=== PATIENT | female | born 1955 | race Caucasian/White ===

== ENCOUNTER 2016-04-03 15:59 | Emergency (ER) | payer OTHER ==
[~2016-04-03] VITALS: Ht 154.9 cm; Wt 58.0 kg
[~2016-04-03 15:59] MED LIST: ALPR0.5T3 PO; ASPI-147 PO; CLON0.1T PO; CLOP75TA PO; DULO1CAP3 PO; FLUT1SPR5 EACH NARE; LINA145C PO; LYRI225C PO; METO50TA11 PO; MODA100T9 PO; NITR0.4S SL; OMEP40CA2 PO; OXYB5TAB10 PO; OXYC-395 PO; PRED5TAB PO; REST0.05 EACH EYE; SIMV20TA PO; SINE25TA PO; SPIR25TA PO; VENL150T PO; ZOLP1SPR PO
[2016-04-03 16:06] VITALS: PULSE 72; RESP 16; TEMP 97.7; O2SAT 95
[2016-04-03] MEDS ORDERED: VITA10002 PO (16:27)
[2016-04-03] MEDS ORDERED: ARIC5TAB PO (16:27)
[2016-04-03] MEDS ORDERED: PLAQ200T PO (16:27)
[2016-04-03] MEDS ORDERED: FLUO20CA4 PO (16:27)
[2016-04-03] MEDS ORDERED: LEVO50TA4 PO (16:27)
--- NOTE | 2016-04-03 16:31 | PD ---
HPI Chief Complaint: Headache Time Seen by Provider: 16:13 Travel History International Travel<30 days: No Contact w/Intl Traveler<30days: No Traveled to known affect area: No History of Present Illness HPI This 60-year-old female presents for evaluation of injuries from a fall. She has a history of Parkinson's and is prone to falling. Today she was walking in her house. She believes she tripped on the strip between 2 rooms. She fell forward and hit her right side of the forehead. She's been having persistent pain. The fall was this morning. She does not have any numbness or tingling. She has had multiple surgeries on her neck and is having neck pain though she says she always has neck pain PFSH Past Medical History Hx Anticoagulant Therapy: Yes (PLAVIX) Arthritis: Yes Asthma: No Depression: Yes Cancer: No Cardiovascular Problems: Yes (htn on meds, ID with stent) High Cholesterol: Yes (MEDICATED STABLE) COPD: Yes Diabetes: No Fibromyalgia: Yes Genitourinary: No Hepatitis: No Hiatal Hernia: Yes (GERD) Hypertension: Yes Immune Disorder: Yes (SYSTEMIC SCLERADERMA) Implanted Vascular Access Dvce: Yes Medical other: Yes (ARTHRITIS, HYERCHOL, SPINAL CORD STIMULATOR, ESOPHAGEAL STRICTURE AND DILIT) Neurologic: No Reproductive: No Respiratory: Yes (copd) Sleep Apnea: Yes Thyroid Disease: No Past Surgical History Abdominal Surgery: Yes (APPENDECTOMY @ AGE 11 Y/O) Body Medical Devices: PLATES AND SCREWS IN NECK, SPINAL CORD STIMULATOR Cardiac Surgery: Yes (STENT PLACEMENT 2009, BILATERAL LEG STENTS) Ear Surgery: No Endocrine Surgery: No Eye Surgery: No Genitourinary Surgery: No Gynecologic Surgery: No Neurologic Surgery: No Oral Surgery: Yes (T&A A CHILD) Thoracic Surgery: No Other Surgery: Yes (INFERIOR TURBINATE REDUCTION, SEPTOPLASTY) Social History Alcohol Use: No Tobacco Use: Yes (1/2PPD) Substance Use: No Allergies-Medications (Allergen,Severity, Reaction): Uncoded Allergies: ZOMAX (Allergy, Severe, SHOCK, 01/22/16) . Reported Meds & Prescriptions Reported Meds & Active Scripts Active Reported Plaquenil (Hydroxychloroquine Sulfate) 200 Mg Tab 200 Mg PO BID Take with food Vitamin B-12 (Cyanocobalamin) 1,000 Mcg Tab 1,000 Mcg PO DAILY Aricept (Donepezil) 5 Mg Tab 5 Mg PO HS Fluoxetine (Fluoxetine HCl) 20 Mg Cap 20 Mg PO DAILY Levothyroxine (Levothyroxine Sodium) 50 Mcg Tab 50 Mcg PO DAILY Sinemet (Carbidopa-Levodopa) 25-100 Mg Tab 1.5 Tab PO Q8HR Venlafaxine ER 24 HR (Venlafaxine HCl) 150 Mg Tab 150 Mg PO DAILY Modafinil 100 Mg Tab 100 Mg PO DAILY Zolpimist (Zolpidem Tartrate) 5 Mg/Act Spr 10 Mg PO HS Alprazolam 0.5 Mg Tab 0.5 Mg PO Q12HR PRN Clonidine (Clonidine HCl) 0.1 Mg Tab 0.1 Mg PO BID Flonase Allergy Relief Nasal [place] (Fluticasone Nasal [place]) 50 Mcg/Act [place] Unknown Dose EACH NARE BID Clopidogrel (Clopidogrel Bisulfate) 75 Mg Tab 75 Mg PO DAILY Ditropan (Oxybutynin Chloride) 5 Mg Tab 5 Mg PO Q12HR Nitrostat SL (Nitroglycerin) 0.4 Mg Subl 0.4 Mg SL DIRECTED PRN ONE TABLET UNDER THE TONGUE NEEDED FOR CHEST PAIN, MAY REPEAT EVERY FIVE MINUTES FOR A TOTAL OF 3 DOSES OR CALL 911 IF NO RELIEF Omeprazole 40 Mg Cap 40 Mg PO DAILY Ecotrin Low Strength (Aspirin) 81 Mg Tabdr 81 Mg PO DAILY Simvastatin 20 Mg Tab 20 Mg PO DAILY Linzess (Linaclotide) 145 Mcg Cap 145 Mcg PO DAILY Oxycodone (Oxycodone HCl) 10 Mg Tab 10 Mg PO Q4HR Spironolactone 25 Mg Tab 25 Mg PO BIDPC Metoprolol Succinate ER 24 HR (Metoprolol Succinate) 50 Mg Tab 50 Mg PO BID Prednisone 5 Mg Tab 5 Mg PO DAILY Lyrica (Pregabalin) 225 Mg Cap 225 Mg PO HS Review of Systems General / Constitutional: No: Fever Eyes: No: Blindness HENT: Positive: Headaches, No: Sore Throat Cardiovascular: No: Chest Pain or Discomfort Respiratory: No: Shortness of Breath Gastrointestinal: No: Nausea, Vomiting Skin: No Itching, No Dryness Neurologic: No: Weakness Hematologic/Lymphatic: No: Easy Bruising Physical Exam Narrative GENERAL: [-] Well-developed female SKIN: Warm and dry. HEAD: There is a large ecchymotic area on the right side of the forehead. There is swelling that extends to the supraorbital area. Normocephalic. EYES: Pupils equal and round. No scleral icterus. No injection or drainage. ENT: No nasal bleeding or discharge. Mucous membranes pink and moist. NECK: Trachea midline. No JVD. CARDIOVASCULAR: Regular rate and rhythm. No murmur appreciated. RESPIRATORY: No accessory muscle use. Clear to auscultation. Breath sounds equal bilaterally. GASTROINTESTINAL: Abdomen soft, non-tender, nondistended. Hepatic and splenic margins not palpable. MUSCULOSKELETAL: No obvious deformities. No clubbing. No cyanosis. No edema. NEUROLOGICAL: Awake and alert. No obvious cranial nerve deficits. Motor grossly within normal limits. Normal speech. PSYCHIATRIC: Appropriate mood and affect; insight and judgment normal. Data Data Last Documented VS Vital Signs Date Time Temp Pulse Resp B/P Pulse Ox O2 Delivery O2 Flow Rate FiO2 04/03/16 16:06 97.[address] Brain W/O Iv Contrast(Rout) (04/03/16 16:21) Ct Cerv Spine W/O Contrast (04/03/16 16:21) MDM Medical Decision Making Medical Screen Exam Complete: Yes Emergency Medical Condition: Yes Medical Record Reviewed: Yes Differential Diagnosis Differential includes contusion of scalp, concussion, fracture, subdural, intracerebral hemorrhage Narrative Course Patient is on Plavix and is at risk for intracerebral hemorrhage. A CT scan was obtained and has been read as negative. CT of the cervical spine is also been performed Diagnosis Primary Impression: Contusion of head Qualified Code: S00.11XA - Contusion of right periocular region, initial encounter Disposition: DISCHARGE HOME Condition: Stable Matthew Thompson MD Apr 03, 2016 16:31
--- NOTE | 2016-04-03 17:57 | RADHPO ---
EXAM DATE/TIME: 04/03/2016 17:29 [facility] COMPARISON: CT BRAIN W/O CONTRAST, January 22, 2016, 17:46. INDICATIONS : Trauma. Fall. Right frontal hematoma. RADIATION DOSE: 58.47 CTDIvol (mGy) MEDICAL HISTORY : Hypertension. Parkinsons. Chronic obstructive pulmonary disease. SURGICAL HISTORY : Fusion, cervical. Coronary artery stent. ENCOUNTER: Initial ACUITY: 1 day PAIN SCALE: 6/10 LOCATION: Right frontal TECHNIQUE: Multiple contiguous axial images were obtained of the head. Using automated exposure control and adj ustment of the mA and/or kV according to patient size, radiation dose was kept as low as reasonably a chievable to obtain optimal diagnostic quality images. FINDINGS: CEREBRUM: The ventricles are normal for age. No evidence of midline shift, mass lesion, hemorrhage or acute in farction. No extra-axial fluid collections are seen. POSTERIOR FOSSA: The cerebellum and brainstem are intact. The 4th ventricle is midline. The cerebellopontine angle i s unremarkable. EXTRACRANIAL: The visualized portion of the orbits is intact. SKULL: The calvaria is intact. No evidence of skull fracture. Mild superficial soft tissue swelling midline and right frontal region CONCLUSION: No acute abnormality. Intracranially negative Santana Pearce MD on April 03, 2016 at 17:55 Board Certified Radiologist. This report was verified electronically.
--- NOTE | 2016-04-03 18:17 | RADHPO ---
EXAM DATE/TIME: 04/03/2016 17:29 [facility] COMPARISON: CT CERVICAL SPINE W/O CONTRAST, January 22, 2016, 17:46. INDICATIONS : Trauma. Fall. Right frontal hematoma. RADIATION DOSE: 24.87 CTDIvol (mGy) MEDICAL HISTORY : Chronic obstructive pulmonary disease. Hypertension. Parkinsons. SURGICAL HISTORY : Fusion, cervical. Coronary artery stent. ENCOUNTER: Initial ACUITY: 1 day PAIN SCALE: 6/10 LOCATION: Bilateral neck TECHNIQUE: Volumetric scanning of the cervical spine was performed. Multiplanar reconstructions in the sagittal, coronal and oblique axial planes were performed. Using automated exposure control and adjustment o f the mA and/or kV according to patient size, radiation dose was kept as low as reasonably achievable to obtain optimal diagnostic quality images. FINDINGS: VERTEBRAE: Spinal stimulator leads are seen involving the dorsal aspects of the central canal entering at the C5 -C6 level and extending cephalad to the C3 level. An anterior fusion plate is seen involving C6-C7. B gutierrez fusion of C5-C6 is observed. Vertebral body heights are maintained. ALIGNMENT: No evidence of subluxation. C2-C3: The bony spinal canal is normal in size. No evidence of disc bulge or herniation. Bony uncovertebra l hypertrophy generates bilateral neural foraminal narrowing. Appearance is stable. C3-C4: Artifact from the stimulator obscures the central canal somewhat. It is grossly patent within its vis ualized aspects. Bony uncovertebral hypertrophy generates bilateral neural foraminal narrowing more p ronounced on the left. Appearance is stable. C4-C5: Artifact from the stimulator obscures the central canal. Bony uncovertebral hypertrophy generates bartolo ateral neural foraminal narrowing. This affects the right to a greater degree than the left. Appearan ce is stable. C5-C6: Artifact from the stimulator device obscures the central canal. Bony uncovertebral hypertrophy genera gagan mild right neural foraminal narrowing. The left is patent. Appearance is stable. C6-C7: The bony spinal canal is normal in size. No evidence of disc bulge or herniation. The neural forami na are bilaterally patent. C7-T1: The bony spinal canal is normal in size. No evidence of disc bulge or herniation. The neural forami na are bilaterally patent. CONCLUSION: 1. No fracture or dislocation. 2. Anterior fusion C6-C7. 3. Neurostimulator. 4. Multilevel degenerative changes. Silver Figueroa Jr., MD on April 03, 2016 at 18:10 Board Certified Radiologist. This report was verified electronically.
[2016-04-03 18:26] VITALS: BP 140/77
== END 2016-04-03 18:27 | disposition home or self-care (01) ==
LOC: PHED 15:59
DX: S00.11XA Contusion of right eyelid and periocular area, initial encounter (principal); G20 Parkinson's disease; W01.0XXA Fall on same level from slipping, tripping and stumbling without subsequent striking against object, initial encounter; Y93.01 Activity, walking, marching and hiking; Y92.009 Unspecified place in unspecified non-institutional (private) residence as the place of occurrence of the external cause
CPT/HCPCS: 70450; 72125

== ENCOUNTER 2016-06-13 20:29 | Emergency (ER) | payer OTHER ==
[~2016-06-13] VITALS: Ht 154.9 cm; Wt 55.8 kg
[~2016-06-13 20:29] MED LIST changes: +ARIC5TAB PO; -DULO1CAP3 PO; +FLUO20CA4 PO; +LEVO50TA4 PO; +PLAQ200T PO; -REST0.05 EACH EYE; +VITA10002 PO
[2016-06-13 20:34] VITALS: BP 129/75; PULSE 75; RESP 18; TEMP 98.3; O2SAT 95
--- NOTE | 2016-06-13 21:20 | PD ---
HPI Chief Complaint: Fall Time Seen by Provider: 21:19 Travel History International Travel<30 days: No Contact w/Intl Traveler<30days: No History of Present Illness HPI 61-year-old female with PMH of HTN, HLD, scleroderma, COPD, SC S/P stents, ON PLAVIX presents to the ED for evaluation of 8/10 pain in the tailbone. Onset approximately 12 hours ago. She states that she lost her balance in the shower , fell into the glass shower door, "bumped" her head on and slid down the door, landing on her buttocks. She denies LOC, headache, dizziness, neck pain, nausea , vomiting, numbness, tingling, weakness, limitations to range of motion of the lower extremities. She has been ambulatory since the accident. She treated with 10 mg oxycodone with a few hours improvement of pain. Last dose at 3 PM. PFSH Past Medical History Hx Anticoagulant Therapy: Yes (PLAVIX) Arthritis: Yes Asthma: No Depression: Yes Cancer: No Cardiovascular Problems: Yes (htn on meds, SC with stent) High Cholesterol: Yes (MEDICATED STABLE) COPD: Yes Diabetes: No Fibromyalgia: Yes Genitourinary: No Hepatitis: No Hiatal Hernia: Yes (GERD) Hypertension: Yes Immune Disorder: Yes (SYSTEMIC SCLERADERMA) Implanted Vascular Access Dvce: Yes Neurologic: No Reproductive: No Respiratory: Yes (copd) Sleep Apnea: Yes Thyroid Disease: No Past Surgical History Abdominal Surgery: Yes (APPENDECTOMY @ AGE 11 Y/O) Body Medical Devices: PLATES AND SCREWS IN NECK, SPINAL CORD STIMULATOR Cardiac Surgery: Yes (STENT PLACEMENT 2009, BILATERAL LEG STENTS) Ear Surgery: No Endocrine Surgery: No Eye Surgery: No Genitourinary Surgery: No Gynecologic Surgery: No Neurologic Surgery: No Oral Surgery: Yes (T&A A CHILD) Thoracic Surgery: No Other Surgery: Yes (INFERIOR TURBINATE REDUCTION, SEPTOPLASTY) Social History Alcohol Use: No Tobacco Use: Yes (1/2PPD) Substance Use: No Allergies-Medications (Allergen,Severity, Reaction): Uncoded Allergies: ZOMAX (Allergy, Severe, SHOCK, 01/22/16) . Reported Meds & Prescriptions Reported Meds & Active Scripts Active Oxycodone-Acetaminophen 5-325 mg Tab 1 Tab PO Q6H PRN Reported Vitamin B-12 (Cyanocobalamin) 1,000 Mcg Tab 1,000 Mcg PO DAILY Fluoxetine (Fluoxetine HCl) 20 Mg Cap 20 Mg PO DAILY Levothyroxine (Levothyroxine Sodium) 50 Mcg Tab 50 Mcg PO DAILY Sinemet (Carbidopa-Levodopa) 25-100 Mg Tab 1.5 Tab PO Q8HR Venlafaxine ER 24 HR (Venlafaxine HCl) 150 Mg Tab 150 Mg PO DAILY Modafinil 100 Mg Tab 100 Mg PO DAILY Zolpimist (Zolpidem Tartrate) 5 Mg/Act Spr 10 Mg PO HS Alprazolam 0.5 Mg Tab 0.5 Mg PO Q12HR PRN Clonidine (Clonidine HCl) 0.1 Mg Tab 0.1 Mg PO BID Flonase Nasal [place] (Fluticasone Nasal [place]) 50 Mcg/Act [place] Unknown Dose EACH NARE BID Clopidogrel (Clopidogrel Bisulfate) 75 Mg Tab 75 Mg PO DAILY Ditropan (Oxybutynin Chloride) 5 Mg Tab 5 Mg PO Q12HR Nitrostat SL (Nitroglycerin) 0.4 Mg Subl 0.4 Mg SL DIRECTED PRN ONE TABLET UNDER THE TONGUE NEEDED FOR CHEST PAIN, MAY REPEAT EVERY FIVE MINUTES FOR A TOTAL OF 3 DOSES OR CALL 911 IF NO RELIEF Omeprazole 40 Mg Cap 40 Mg PO DAILY Ecotrin Low Strength (Aspirin) 81 Mg Tabdr 81 Mg PO DAILY Simvastatin 20 Mg Tab 20 Mg PO DAILY Linzess (Linaclotide) 145 Mcg Cap 145 Mcg PO DAILY Oxycodone (Oxycodone HCl) 10 Mg Tab 10 Mg PO Q4HR Spironolactone 25 Mg Tab 25 Mg PO BIDPC Metoprolol Succinate ER 24 HR (Metoprolol Succinate) 50 Mg Tab 50 Mg PO BID Prednisone 5 Mg Tab 5 Mg PO DAILY Lyrica (Pregabalin) 225 Mg Cap 225 Mg PO HS Review of Systems Except as stated in HPI: all other systems reviewed are Neg Physical Exam Narrative GENERAL: Well-nourished, well-developed white female, perched gingerly on the edge of the chair in no acute distress. SKIN: Warm and dry. Thorough evaluation reveals no edema, ecchymosis, abrasion , or laceration of the skin. HEAD: Normocephalic. Atraumatic. No raccoon eyes or rahman sign. No tenderness to palpation of the skull. No bony step-offs. No malocclusion of the teeth. EYES: No scleral icterus. No injection or drainage. PERRLA. EOMI. ENT: Pearly da silva tympanic membranes bilaterally. Nasal mucosa is moist. Oropharynx without erythema, edema or exudate. NECK: Supple, trachea midline. No JVD or lymphadenopathy. No midline tenderness to palpation. Patient retains full, active, painless range of motion of the neck. CARDIOVASCULAR: Regular rate and rhythm without murmurs, gallops, or rubs. 2+ DP and radial pulses bilaterally. RESPIRATORY: Breath sounds clear and equal bilaterally. No accessory muscle use. GASTROINTESTINAL: Abdomen soft, non-tender, nondistended. + Bowel sounds MUSCULOSKELETAL: No cyanosis, or edema. No tenderness to palpation or limitations to range of motion of the joints of the upper and lower extremities bilaterally. Patient is noted to walk with a normal gait. Tenderness to palpation of the sacral/coccygeal area. NEUROLOGICAL: Awake and alert. Cranial nerves II through XII intact. Motor and sensory grossly within normal limits. 5/5 muscle strength in all muscle groups. Normal speech. BACK: Nontender without obvious deformity. No CVA tenderness. No midline tenderness. Data Data Last Documented VS Vital Signs Date Time Temp Pulse Resp B/P Pulse Ox O2 Delivery O2 Flow Rate FiO2 06/13/16 20:34 98.3 75 18 129/75 95 Orders Sacrum And Coccyx (06/13/16 ) MDM Medical Decision Making Medical Screen Exam Complete: Yes Emergency Medical Condition: Yes Differential Diagnosis Sacral contusion versus coccyx contusion versus cervical fracture versus coccyx fracture versus other Narrative Course 61-year-old female with PMH of HTN, HLD, scleroderma, COPD, SC S/P stents, ON PLAVIX presents to the ED for evaluation of 8/10 pain in the tailbone. Onset approximately 12 hours ago. Patient states that she fell in the shower. She states that she lost her balance, fell into the glass door, "bumped her head in the process and landed on her buttocks. She denies LOC, headache, dizziness, neck pain, nausea, vomiting, numbness, tingling, weakness, limitations to range of motion of the lower extremities. She has been ambulatory since the accident. Vitals reviewed. Physical exam reveals an alert and oriented white female in no acute distress. There is tenderness to palpation of the buttocks and tailbone area. Patient is neurovascularly intact. There is no tenderness to palpation of the skull. Patient's is at bedside and states that she' s been behaving normally over the last 12 hours. I do not think CT imaging of the brain is warranted. X-rays of this sacrum and coccyx reveal no acute bony injury. This is coccygeal contusion. Discussed the results of the x-ray with the patient. Provided her with a brief course of supplemental narcotic pain medications. She is instructed to use a doughnut pillow as needed, return to normal, gentle activity as tolerated, follow up with her primary care provider. She indicated understanding of the instructions and is agreeable to the care plan. This patient is stable and discharged home. Diagnosis Primary Impression: Coccygeal contusion Qualified Code: S30.0XXA - Coccygeal contusion, initial encounter Referrals: Primary Care Physician Patient Instructions: Coccyx Injury (ED), General Instructions Additional Instructions: Rest, hydrate. Use the donut pillow as discussed. Pain medication as needed. Follow-up with the primary care provider. Return to the ED for any urgent or emergent medical condition. Med/Other Pt SpecificInfo: Prescription(s) given Scripts Oxycodone-Acetaminophen 5-325 mg Tab1 Tab PO Q6H PRN (PAIN) #15 TAB Ref 0 Prov:Shireen Mchugh MD 06/13/16 Disposition: 01 DISCHARGE HOME Condition: Stable Elsi Paulson Jun 13, 2016 21:20
--- NOTE | 2016-06-13 22:26 | RADHPO ---
EXAM DATE/TIME: 06/13/2016 21:41 [facility] COMPARISON: No previous studies available for comparison. INDICATIONS : Lower back pain after fall. MEDICAL HISTORY : Cardiovascular disease. Hypertension. Chronic obstructive pulmonary disease. SURGICAL HISTORY : Pain stimulator. ENCOUNTER: Initial ACUITY: 1 day PAIN SCORE: 8/10 LOCATION: Bilateral sacrum and coccyx. FINDINGS: Two-view examination of the sacrum and coccyx demonstrates no evidence of fracture or malalignment. The sacral ala and foramina appear symmetric and intact. The coccyx appears unremarkable. The preve rtebral soft tissues are within normal limits. Bilateral iliac stents. CONCLUSION: No acute findings. Bilateral iliac stents. Presumed stimulator apparatus on the right. Pablito Alonzo MD on June 13, 2016 at 22:24 Board Certified Radiologist. This report was verified electronically.
[2016-06-13] MEDS ORDERED: OXYC1TAB63 PO (22:36)
== END 2016-06-13 22:48 | disposition home or self-care (01) ==
LOC: PHEFT 20:29
DX: S30.0XXA Contusion of lower back and pelvis, initial encounter (principal); J44.9 Chronic obstructive pulmonary disease, unspecified; I10 Essential (primary) hypertension; F17.210 Nicotine dependence, cigarettes, uncomplicated; W18.09XA Striking against other object with subsequent fall, initial encounter; Y93.E1 Activity, personal bathing and showering; Y92.002 Bathroom of unspecified non-institutional (private) residence as the place of occurrence of the external cause; Z79.01 Long term (current) use of anticoagulants
CPT/HCPCS: 72220; 99283

== ENCOUNTER 2016-06-21 10:53 | Emergency (ER) | payer OTHER ==
[~2016-06-21] VITALS: Ht 154.9 cm; Wt 57.0 kg
[~2016-06-21 10:53] MED LIST changes: -ARIC5TAB PO; +OXYC1TAB63 PO; -PLAQ200T PO
[2016-06-21 10:58] VITALS: BP 156/78; PULSE 74; RESP 18; TEMP 98.3; O2SAT 100
--- NOTE | 2016-06-21 11:23 | PD ---
HPI Chief Complaint: Fall Time Seen by Provider: 11:23 Travel History International Travel<30 days: No Contact w/Intl Traveler<30days: No Traveled to known affect area: No History of Present Illness HPI 61-year-old female with a history of hypertension, hyperlipidemia, Parkinson's disease, COPD, CAD with stents, on Plavix presents to the emergency department for evaluation of fall. The patient states that she was bending over to flower buncher or picker her laundry bag when she lost her balance and fell to the right side. States that she fell onto her right shoulder and then hit her head. She denies loss of consciousness. She is complaining of right shoulder pain, headache and neck pain. She admits that she does have chronic neck pain but that her neck pain is worse now than before the fall today. She states that she falls frequently secondary to her Parkinson's disease. She denies any lightheadedness , dizziness, nausea, vomiting, blurred vision, numbness or tingling, weakness. No other complaints. PFSH Past Medical History Hx Anticoagulant Therapy: Yes (PLAVIX) Arthritis: Yes Asthma: No Depression: Yes Cancer: No Cardiovascular Problems: Yes ([place], STENTS) High Cholesterol: Yes COPD: Yes Coronary Artery Disease: Yes Diabetes: No Fibromyalgia: Yes GERD: Yes Genitourinary: No Hepatitis: No Hiatal Hernia: Yes Hypertension: Yes Immune Disorder: Yes (SYSTEMIC SCLERADERMA) Implanted Vascular Access Dvce: Yes Neurologic: No Reproductive: No Respiratory: Yes (copd) Sleep Apnea: Yes Thyroid Disease: Yes Influenza Vaccination: Yes ?: Not Past Surgical History Abdominal Surgery: Yes (APPENDECTOMY @ AGE 11 Y/O) Body Medical Devices: PLATES AND SCREWS IN NECK, SPINAL CORD STIMULATOR Cardiac Surgery: Yes (STENT PLACEMENT 2009, BILATERAL LEG STENTS) Neurologic Surgery: Yes (parkinsons) Oral Surgery: Yes (T&A A CHILD) Other Surgery: Yes (INFERIOR TURBINATE REDUCTION, SEPTOPLASTY) Social History Alcohol Use: No Tobacco Use: Yes (1/2PPD) Substance Use: No Allergies-Medications (Allergen,Severity, Reaction): Uncoded Allergies: ZOMAX (Allergy, Severe, SHOCK, 01/22/16) . Reported Meds & Prescriptions Reported Meds & Active Scripts Active Oxycodone-Acetaminophen 5-325 mg Tab 1 Tab PO Q6H PRN Reported Vitamin B-12 (Cyanocobalamin) 1,000 Mcg Tab 1,000 Mcg PO DAILY Fluoxetine (Fluoxetine HCl) 20 Mg Cap 20 Mg PO DAILY Levothyroxine (Levothyroxine Sodium) 50 Mcg Tab 50 Mcg PO DAILY Sinemet (Carbidopa-Levodopa) 25-100 Mg Tab 1.5 Tab PO Q8HR Venlafaxine ER 24 HR (Venlafaxine HCl) 150 Mg Tab 150 Mg PO DAILY Modafinil 100 Mg Tab 100 Mg PO DAILY Zolpimist (Zolpidem Tartrate) 5 Mg/Act Spr 10 Mg PO HS Alprazolam 0.5 Mg Tab 0.5 Mg PO Q12HR PRN Clonidine (Clonidine HCl) 0.1 Mg Tab 0.1 Mg PO BID Flonase Nasal [place] (Fluticasone Nasal [place]) 50 Mcg/Act [place] Unknown Dose EACH NARE BID Clopidogrel (Clopidogrel Bisulfate) 75 Mg Tab 75 Mg PO DAILY Ditropan (Oxybutynin Chloride) 5 Mg Tab 5 Mg PO Q12HR Nitrostat SL (Nitroglycerin) 0.4 Mg Subl 0.4 Mg SL DIRECTED PRN ONE TABLET UNDER THE TONGUE NEEDED FOR CHEST PAIN, MAY REPEAT EVERY FIVE MINUTES FOR A TOTAL OF 3 DOSES OR CALL 911 IF NO RELIEF Omeprazole 40 Mg Cap 40 Mg PO DAILY Ecotrin Low Strength (Aspirin) 81 Mg Tabdr 81 Mg PO DAILY Simvastatin 20 Mg Tab 20 Mg PO DAILY Linzess (Linaclotide) 145 Mcg Cap 145 Mcg PO DAILY Oxycodone (Oxycodone HCl) 10 Mg Tab 10 Mg PO Q4HR Spironolactone 25 Mg Tab 25 Mg PO BIDPC Metoprolol Succinate ER 24 HR (Metoprolol Succinate) 50 Mg Tab 50 Mg PO BID Prednisone 5 Mg Tab 5 Mg PO DAILY Lyrica (Pregabalin) 225 Mg Cap 225 Mg PO HS Review of Systems Except as stated in HPI: all other systems reviewed are Neg Physical Exam Narrative GENERAL: Well-nourished and well-developed pleasant female patient in no acute distress. SKIN: No obvious lacerations or abrasions noted. HEAD: Normocephalic and atraumatic. No bony point tenderness or crepitus noted throughout the scalp and facial bones. EYES: No scleral icterus, injection, or drainage. PERRLA. EOMI. No hyphema present. ENT: No septal hematoma or hemotympanum noted. Oropharynx is clear and the airway is patent. NECK: Supple and the trachea is midline. Midline cervical spine tenderness to palpation. Cervical collar in place. No obvious deformities or crepitus. CARDIOVASCULAR: Regular rate and rhythm. RESPIRATORY: Breath sounds are equal bilaterally with no accessory muscle use, wheezing, rhonchi, or crackles. GASTROINTESTINAL: Abdomen is soft, non-tender, and nondistended. MUSCULOSKELETAL: Tenderness to palpation of right anterior shoulder with limited range of motion, no tenderness along the humerus, no deformities. Radial pulses are 2+ bilaterally. No obvious deformities, swelling, cyanosis, or ecchymosis is present throughout the upper and lower extremities. Patient has full range of motion in all other extremities. BACK: Nontender without any obvious deformities, bony point tenderness, or crepitus noted throughout the thoracic and lumbar vertebrae. NEUROLOGICAL: Awake, alert, and oriented. Normal speech and gait. Cranial nerves are grossly intact. Data Data Last Documented VS Vital Signs Date Time Temp Pulse Resp B/P Pulse Ox O2 Delivery O2 Flow Rate FiO2 06/21/16 10:58 98.3 74 18 156/78 100 Orders Shoulder, Complete (>2vws) (06/21/16 11:22) Ct Brain W/O Iv Contrast(Rout) (06/21/16 11:22) Ct Cerv Spine W/O Contrast (06/21/16 11:22) Oxycodone-Acetamin 5-325 Mg (Percocet (06/21/16 11:30) MDM Medical Decision Making Medical Screen Exam Complete: Yes Emergency Medical Condition: Yes Differential Diagnosis Contusion versus sprain versus fracture versus intracranial hemorrhage versus acute on chronic neck pain Narrative Course 61-year-old female presents to the emergency department for evaluation of right shoulder, neck and headache status post fall that occurred about one hour ago. Patient is afebrile, vital signs are stable. No loss of consciousness. She is anticoagulated on Plavix. CT imaging of the head and cervical spine has been ordered and is pending. X-ray imaging of the right shoulder has been ordered and is pending. X-ray right shoulder is negative for any acute abnormalities. Head CT is negative for any acute abnormalities. CT of the cervical spine shows degenerative changes but is otherwise unremarkable for any acute abnormalities. Patient has remained stable and without complaint while here in the emergency department. She'll be given a sling for comfort although did discuss with the patient that she should remove her arm from the sling multiple times throughout the day and perform gentle stretches to prevent frozen shoulder. She is advised to take her at home pain medications and to follow-up with her PCP. Patient verbalizes understanding and agreement with treatment plan. Diagnosis Primary Impression: Sprain of right shoulder Qualified Code: S43.401A - Sprain of right shoulder, unspecified shoulder sprain type, initial encounter Additional Impression: Fall Qualified Code: W19.XXXA - Fall, initial encounter Referrals: Primary Care Physician Patient Instructions: General Instructions, Shoulder Sprain (ED) Additional Instructions: Sling for comfort. Remove arm from sling multiple times daily and perform gentle stretches. Apply ice for 20 minutes on, 20 minutes off. Follow-up with your Primary Care Physician. Return to the ED for any acute worsening of symptoms. Med/Other Pt SpecificInfo: No Change to Meds Disposition: 01 DISCHARGE HOME Condition: Stable Jenn Jimenez Jun 21, 2016 11:23
[2016-06-21] MEDS ORDERED: oxyCODONE/ACETAMINOPHEN 5 MG/325 MG TAB PO ONE (11:30)
--- NOTE | 2016-06-21 11:59 | RADHPO ---
EXAM DATE/TIME: 06/21/2016 11:28 [facility] COMPARISON: No previous studies available for comparison. INDICATIONS : Right shoulder pain from fall this morning. MEDICAL HISTORY : Hypertension. Myocardial infarction. Chronic obstructive pulmonary disease. Parkinsons. Coronary artery disease. Fibromyalgia. Arthritis. Osteoporosis. SURGICAL HISTORY : Appendectomy. Cardiac stents. Shunt. ENCOUNTER: Initial ACUITY: 1 day PAIN SCORE: 10/10 LOCATION: Right shoulder. FINDINGS: Multiple view examination of the right shoulder demonstrates no evidence of fracture or dislocation. The glenohumeral and acromioclavicular joints are maintained. There is normal range of motion betwe en internal and external rotation. Bony mineralization is normal. Suspected CONVERTER OPERATOR shunt catheters are i dentified overlying the right chest CONCLUSION: Unremarkable examination of the right shoulder. Renato Lui MD on June 21, 2016 at 11:56 Board Certified Radiologist. This report was verified electronically.
--- NOTE | 2016-06-21 12:09 | RADHPO ---
EXAM DATE/TIME: 06/21/2016 11:45 [facility] COMPARISON: CT BRAIN W/O CONTRAST, April 03, 2016, 17:29. INDICATIONS : Trauma. Fall. Right sided head and neck pain. RADIATION DOSE: 62.59 CTDIvol (mGy) MEDICAL HISTORY : Hypertension. SURGICAL HISTORY : Fusion, cervical. ENCOUNTER: Initial ACUITY: 1 day PAIN SCALE: 10/10 LOCATION: Right cranial TECHNIQUE: Multiple contiguous axial images were obtained of the head. Using automated exposure control and adj ustment of the mA and/or kV according to patient size, radiation dose was kept as low as reasonably a chievable to obtain optimal diagnostic quality images. FINDINGS: CEREBRUM: The ventricles are normal for age. No evidence of midline shift, mass lesion, hemorrhage or acute in farction. Chronic small vessel ischemic changes are again noted. No extra-axial fluid collections are seen. POSTERIOR FOSSA: The cerebellum and brainstem are intact. The 4th ventricle is midline. The cerebellopontine angle i s unremarkable. EXTRACRANIAL: The visualized portion of the orbits is intact. There is mucosal thickening in the right frontal sinu s and right anterior ethmoidal air cells. SKULL: The calvaria is intact. No evidence of skull fracture. CONCLUSION: Negative trauma study. Josh Savage MD on June 21, 2016 at 12:06 Board Certified Radiologist. This report was verified electronically.
--- NOTE | 2016-06-21 12:24 | RADHPO ---
EXAM DATE/TIME: 06/21/2016 11:45 [facility] COMPARISON: CT CERVICAL SPINE W/O CONTRAST, April 03, 2016, 17:29. INDICATIONS : Trauma. Fall. Right neck pain. RADIATION DOSE: 24.86 CTDIvol (mGy) MEDICAL HISTORY : Hypertension. SURGICAL HISTORY : Fusion, cervical. ENCOUNTER: Initial ACUITY: 1 day PAIN SCALE: 10/10 LOCATION: Right neck TECHNIQUE: Volumetric scanning of the cervical spine was performed. Multiplanar reconstructions in the sagittal, coronal and oblique axial planes were performed. Using automated exposure control and adjustment o f the mA and/or kV according to patient size, radiation dose was kept as low as reasonably achievable to obtain optimal diagnostic quality images. FINDINGS: VERTEBRAE: The vertebral bodies remain intact in appearance. There is diffuse osteopenia. The patient is status post anterior cervical fusion at the C6-7 level with screw plate fixation device remaining in place. The patient is also status post solid fusion at the C5-6 level bone graft material interspace. There are mild degenerative disc changes with disc space narrowing and hypertrophic change. A neurostimulat or device remains in place in the posterior thecal sac from the C3-C5 level. There is moderate streak artifact limiting visualization. The dens is intact. Bone grafting material is noted near space at C 6-7 which is high density. ALIGNMENT: No evidence of subluxation. The axial images demonstrate that the vertebral bodies and posterior elements are intact. The patient is status post anterior cervical fusion at the C6-7 level with intact appearing screw plate fixation device. There are mild degenerative changes. A neurostimulator device is present in the posterior th ecal sac at the C3-C5 level. CONCLUSION: 1. No acute fracture or malalignment. 2. Stable postoperative changes status post multilevel fusion. A posterior neurostimulator device rem ains in place. 3. Degenerative disc change again noted. Josh Savage MD on June 21, 2016 at 12:19 Board Certified Radiologist. This report was verified electronically.
== END 2016-06-21 12:50 | disposition home or self-care (01) ==
LOC: PHEFT 10:53
DX: S43.401A Unspecified sprain of right shoulder joint, initial encounter (principal); W18.30XA Fall on same level, unspecified, initial encounter; Y93.9 Activity, unspecified; Y92.9 Unspecified place or not applicable; Z79.01 Long term (current) use of anticoagulants; I10 Essential (primary) hypertension; Z91.81 History of falling; G20 Parkinson's disease; F17.210 Nicotine dependence, cigarettes, uncomplicated; J44.9 Chronic obstructive pulmonary disease, unspecified; Y99.9 Unspecified external cause status; M79.7 Fibromyalgia; E78.00 Pure hypercholesterolemia, unspecified
CPT/HCPCS: 70450; 72125; 73030

== ENCOUNTER 2016-07-25 18:35 | Inpatient (IN) | payer OTHER, MEDICARE ==
[~2016-07-25] VITALS: Ht 154.9 cm; Wt 63.8 kg
[2016-07-25] VITALS (10 sets, daily range): BP systolic 102–165; BP diastolic 69–99; PULSE 74–85; RESP 20–36; TEMP 97.9–103.4; O2SAT 92–98
[2016-07-25] MEDS ORDERED: PIPERACIL-TAZO 3.375 GM PREMIX 50 ML IV ONE (18:45)
[2016-07-25] MEDS ORDERED: VANCOMYCIN INJ 1,000 MG in SODIUM CHLOR 0.9% 250 ML INJ 250 ML IV ONE (18:45)
[2016-07-25] MEDS ORDERED: SODIUM CHLOR 0.9% 1000 ML INJ 1,000 ML IV ONE ×2 (18:45→19:30)
[2016-07-25] MEDS ORDERED: ACETAMINOPHEN 650 MG SUPP RECTAL ONE (18:45)
--- NOTE | 2016-07-25 18:47 | PD ---
HPI Chief Complaint: fever. Time Seen by Provider: 18:38 Travel History International Travel<30 days: No Contact w/Intl Traveler<30days: No Traveled to known affect area: No History of Present Illness HPI 61-year-old female was brought in the EMS for fever and lethargy. Patient was seen at local urgent care center 3 days ago with diagnosis of UTI. Patient was given prescription for Cipro. EMS was called today because patient has increasing lethargy and fever. Patient is lethargic unable to provide information. I spoke with patient's . Patient started hallucinating about 6 days ago. Patient's eye having coughing congestion 5 days ago. Patient has increasing lethargy and hallucination to the point of patient could not talk much today. Patient has history of CAD, CO, status post stent placement, history of PAD status post stent placement on the lower extremity, COPD, patient is a smoker, Parkinson's disease, hypertension, hyperlipidemia, systemic scleroderma, fibromyalgia. Patient's source inspector Dr. Wilson. Patient's family physician Dr. Amos. Patient has a signed DNR [facility] Past Medical History Hx Anticoagulant Therapy: Yes (PLAVIX) Arthritis: Yes Asthma: No Depression: Yes Cancer: No Cardiovascular Problems: Yes ([place], STENTS) High Cholesterol: Yes COPD: Yes Coronary Artery Disease: Yes Diabetes: No Fibromyalgia: Yes GERD: Yes Genitourinary: No Hepatitis: No Hiatal Hernia: Yes Hypertension: Yes Immune Disorder: Yes (SYSTEMIC SCLERADERMA) Implanted Vascular Access Dvce: Yes Neurologic: No Reproductive: No Respiratory: Yes (copd) Sleep Apnea: Yes Thyroid Disease: Yes Past Surgical History Abdominal Surgery: Yes (APPENDECTOMY @ AGE 11 Y/O) Body Medical Devices: PLATES AND SCREWS IN NECK, SPINAL CORD STIMULATOR Cardiac Surgery: Yes (STENT PLACEMENT 2009, BILATERAL LEG STENTS) Neurologic Surgery: Yes (parkinsons) Oral Surgery: Yes (T&A A CHILD) Other Surgery: Yes (INFERIOR TURBINATE REDUCTION, SEPTOPLASTY) Social History Alcohol Use: No Tobacco Use: Yes (1/2PPD) Substance Use: No Allergies-Medications (Allergen,Severity, Reaction): Uncoded Allergies: ZOMAX (Allergy, Severe, SHOCK, 01/22/16) . Reported Meds & Prescriptions Reported Meds & Active Scripts Active Reported Ropinirole 4 Mg Tab 4 Mg PO HS Cipro (Ciprofloxacin HCl) 500 Mg Tab 500 Mg PO BID Vitamin B-12 (Cyanocobalamin) 1,000 Mcg Tab 1,000 Mcg PO DAILY Fluoxetine (Fluoxetine HCl) 20 Mg Cap 50 Mg PO BID Levothyroxine (Levothyroxine Sodium) 50 Mcg Tab 50 Mcg PO DAILY Sinemet (Carbidopa-Levodopa) 25-100 Mg Tab 1 Tab PO Q8HR Venlafaxine ER 24 HR (Venlafaxine HCl) 150 Mg Tab 150 Mg PO DAILY Modafinil 100 Mg Tab 100 Mg PO DAILY Zolpimist (Zolpidem Tartrate) 5 Mg/Act Spr 10 Mg PO HS Clonidine (Clonidine HCl) 0.1 Mg Tab 0.1 Mg PO BID Flonase Nasal [place] (Fluticasone Nasal [place]) 50 Mcg/Act [place] Unknown Dose EACH NARE BID Clopidogrel (Clopidogrel Bisulfate) 75 Mg Tab 75 Mg PO DAILY Ditropan (Oxybutynin Chloride) 5 Mg Tab 5 Mg PO Q12HR Nitrostat SL (Nitroglycerin) 0.4 Mg Subl 0.4 Mg SL DIRECTED PRN ONE TABLET UNDER THE TONGUE NEEDED FOR CHEST PAIN, MAY REPEAT EVERY FIVE MINUTES FOR A TOTAL OF 3 DOSES OR CALL 911 IF NO RELIEF Omeprazole 40 Mg Cap 40 Mg PO BID Ecotrin Low Strength (Aspirin) 81 Mg Tabdr 81 Mg PO DAILY Simvastatin 20 Mg Tab 20 Mg PO DAILY Linzess (Linaclotide) 145 Mcg Cap 145 Mcg PO DAILY Oxycodone (Oxycodone HCl) 10 Mg Tab 10 Mg PO Q4HR Spironolactone 25 Mg Tab 25 Mg PO BIDPC Metoprolol Succinate ER 24 HR (Metoprolol Succinate) 50 Mg Tab 50 Mg PO BID Prednisone 5 Mg Tab 5 Mg PO DAILY Lyrica (Pregabalin) 225 Mg Cap 225 Mg PO HS Review of Systems General / Constitutional: Positive: Fever Eyes: No: Visual changes HENT: No: Headaches Cardiovascular: No: Chest Pain or Discomfort Respiratory: No: Shortness of Breath Gastrointestinal: No: Abdominal Pain Genitourinary: No: Dysuria Musculoskeletal: No: Pain Skin: No Rash Neurologic: No: Weakness Psychiatric: No: Depression Endocrine: No: Polydipsia Hematologic/Lymphatic: No: Easy Bruising Physical Exam Narrative GENERAL: Thin female, lethargic, pale, mildly tachypneic. SKIN: Focused skin assessment warm/dry. HEAD: Normocephalic. EYES: No scleral icterus. No injection or drainage. Pupils 2 mm equal reactive NECK: Supple, trachea midline. No JVD or lymphadenopathy. No meningismus CARDIOVASCULAR: Mild tachycardia rate and rhythm without murmurs, gallops, or rubs. RESPIRATORY: Breath sounds equal bilaterally. No accessory muscle use. Mild tachypnea with diffuse rhonchi bilaterally. Mild expiratory wheezes. GASTROINTESTINAL: Abdomen soft, nondistended. Patient has mild to moderate tenderness on palpation of the right upper quadrant abdomen and mild tenderness diffuse over the abdomen. No rebound tenderness. No mass. MUSCULOSKELETAL: No cyanosis, or edema. BACK: Nontender without obvious deformity. No CVA tenderness. neurologic exam: Patient is lethargic, moves extremity on command. Patient has moaning otherwise not communicating or answering questions. Deep tendon reflexes 2+ and equal. Negative Babinski. Data Data Last Documented VS Vital Signs Date Time Temp Pulse Resp B/P Pulse Ox O2 Delivery O2 Flow Rate FiO2 07/25/16 20:27 100.9 07/25/16 20:05 78 34 154/91 94 Nasal Cannula 2 Orders Electrocardiogram (07/25/16 18:38) Complete Blood Count With Diff (07/25/16 18:38) Comprehensive Metabolic Panel (07/25/16 18:38) Creatine Kinase (Cpk) (07/25/16 18:38) Troponin I (07/25/16 18:38) B-Type Natriuretic Peptide (07/25/16 18:38) Prothrombin Time / Inr (Pt) (07/25/16 18:38) Act Partial Throm Time (Ptt) (07/25/16 18:38) Arterial Blood Gas (Abg) (07/25/16 18:38) Blood Culture (07/25/16 18:38) Urinalysis - C+S If Indicated (07/25/16 18:38) Thyroid Stimulating Hormone (07/25/16 18:38) Chest, Single Ap (07/25/16 18:38) Ct Brain W/O Iv Contrast(Rout) (07/25/16 18:38) Iv Access Insert/Monitor (07/25/16 18:38) Ecg Monitoring (07/25/16 18:38) Oxygen Administration (07/25/16 18:38) Oximetry (07/25/16 18:38) Lactic Acid Sepsis Protocol (07/25/16 18:38) Sodium Chlor 0.9% 1000 Ml Inj (Ns 1000 M (07/25/16 18:45) Acetaminophen Supp (Tylenol Supp) (07/25/16 18:45) Vancomycin Inj (Vancomycin Inj) (07/25/16 18:45) Piperacil-Tazo 3.375 Gm Premix (Zosyn 3. (07/25/16 18:45) Albuterol-Ipratropium Neb (Duoneb Neb) (07/25/16 19:00) Urinary Catheter Insert/Apply (07/25/16 19:12) Restraints Non-Violent ANÍBAL.Q3H (07/25/16 19:12) Sodium Chlor 0.9% 1000 Ml Inj (Ns 1000 M (07/25/16 19:30) Sodium Chlor 0.9% 1000 Ml Inj (Ns 1000 M (07/25/16 19:30) CKMB (07/25/16 18:45) CKMB% (07/25/16 18:45) Ct Abd/Pel W/O Iv Contrast (07/25/16 19:44) Urine Culture (07/25/16 19:44) Admit Order (Ed Use Only) (07/25/16 20:30) Labs Laboratory Tests Test 07/25/16 07/25/16 07/25/16 18:45 18:50 19:44 White Blood Count 19.9 TH/MM3 Red Blood Count 3.75 MIL/MM3 Hemoglobin 11.9 GM/DL Hematocrit 36.3 % Mean Corpuscular Volume 96.6 FL Mean Corpuscular Hemoglobin 31.7 PG Mean Corpuscular Hemoglobin 32.8 % Concent Red Cell Distribution Width 14.2 % Platelet Count 126 TH/MM3 Mean Platelet Volume 8.4 FL Neutrophils (%) (Auto) 91.8 % Lymphocytes (%) (Auto) 1.2 % Monocytes (%) (Auto) 5.9 % Eosinophils (%) (Auto) 0.1 % Basophils (%) (Auto) 1.0 % Neutrophils # (Auto) 18.3 TH/MM3 Lymphocytes # (Auto) 0.2 TH/MM3 Monocytes # (Auto) 1.2 TH/MM3 Eosinophils # (Auto) 0.0 TH/MM3 Basophils # (Auto) 0.2 TH/MM3 CBC Comment DIFF FINAL Differential Comment Prothrombin Time 31.1 SEC Prothromb Time International 2.7 RATIO Ratio Activated Partial 37.4 SEC Thromboplast Time Sodium Level 133 MEQ/L Potassium Level 4.8 MEQ/L Chloride Level 94 MEQ/L Carbon Dioxide Level 19.8 MEQ/L Anion Gap 19 MEQ/L Blood Urea Nitrogen 42 MG/DL Creatinine 2.50 MG/DL Estimat Glomerular Filtration 19 ML/MIN Rate Random Glucose 108 MG/DL Lactic Acid Level 9.6 mmol/L Calcium Level 8.3 MG/DL Total Bilirubin 2.2 MG/DL Aspartate Amino Transf 04276 U/L (AST/SGOT) Alanine Aminotransferase 1932 U/L (ALT/SGPT) Alkaline Phosphatase 123 U/L Total Creatine Kinase 1644 U/L Creatine Kinase MB 16.3 NG/ML Creatine Kinase MB % 1.0 % Troponin I 2.97 NG/ML B-Type Natriuretic Peptide GREATER THAN 5000 PG/ML Total Protein 6.1 GM/DL Albumin 3.5 GM/DL Thyroid Stimulating Hormone 0.189 uIU/ML 3rd Gen Blood Gas Puncture Site RT RADIAL Blood Gas Patient Temperature 98.6 Blood Gas HCO3 15 mmol/L Blood Gas Base Excess -9.4 mmol/L Blood Gas Oxygen Saturation 77 % Arterial Blood pH 7.37 Arterial Blood Partial 27 mmHG Pressure CO2 Arterial Blood Partial 52 mmHG Pressure O2 Arterial Blood Oxygen Content 12.1 Vol % Arterial Blood 1.7 % Carboxyhemoglobin Arterial Blood Methemoglobin 1.2 % Blood Gas Hemoglobin 11.2 G/DL Blood Gas Inspired Oxygen 21 % Urine Color KIRILL Urine Turbidity SLIGHT Urine pH 5.5 Urine Specific [place] 1.020 Urine Protein 300 OR GREATER mg/dL Urine Glucose (UA) NEG mg/dL Urine Ketones TRACE mg/dL Urine Occult Blood LARGE Urine Nitrite NEG Urine Bilirubin MOD Urine Leukocyte Esterase NEG Urine RBC 0-3 /hpf Urine WBC 3-5 /hpf Urine Squamous Epithelial 6-8 /hpf Cells Urine Amorphous Sediment MOD Urine Bacteria MANY /hpf Microscopic Urinalysis Comment CATH-CULTURE IND MDM Medical Decision Making Medical Screen Exam Complete: Yes Emergency Medical Condition: Yes Interpretation(s) 1901 p.m. EKG shows sinus rhythm nonspecific ST-T wave change. 19 10 PM. ABG at room air, pH 7.37. PCO2 27. PO2 52. 1921 PM. CBC WBC 19.9. 91 neutrophil. Sodium 133. Chloride 94. Bicarbonate 19.8. Anion gap 19. BUN 42. Creatinine 2.5. GFR 19. Calcium 8.3. INR 2.7. 1936 PM. Lactic acid 9.6. Total CK 1644. Troponin 2.97. TSH 0.189. Total bili 2.2. Alkaline phosphatase 123. ALT 1932. 2019 p.m. UA positive for few WBC and many bacteria. 21:19 PM. Last Impressions Abdomen/Pelvis CT 07/25/16 194 Signed Impressions: Service Date/Time: Monday, July 25, 2016 20:28 - CONCLUSION: 1. Findings suspicious for acalculus cholecystitis. Radionuclide imaging is recommended for further evaluation if clinically indicated. Trenton Oneal MD Head CT [id number] Signed Impressions: Service Date/Time: Monday, July 25, 2016 20:25 - CONCLUSION: 1. No evidence of acute intracranial pathology. No masses are identified. 2. Sinus disease as above Trenton Oneal MD Chest X-Ray [id number] Signed Impressions: Service Date/Time: Monday, July 25, 2016 19:01 - CONCLUSION: 1. Cardiomegaly. No acute pulmonary disease. Trenton Oneal MD Differential Diagnosis Differential diagnosis including sepsis, TIA, CVA, dehydration, electrolyte imbalance, pneumonia, UTI, CO. Narrative Course 61-year-old female with lethargy and fever. Most likely sepsis. Normal saline solution 1 L IV bolus. Vancomycin 1 g IV. Zosyn 3.375 g IV. Repeat IV fluid normal saline solution 1 L IV bolus. Albuterol with Atrovent unit dose treatment times one. Normal saline solution 100 cc an hour. Although BNP above 5000, patient clinically sepsis and needs fluid. Patient has no history of CHF and chest x-ray does not show any pulmonary congestion. Patient has no peripheral edema. Spoke with automatic riveting machine operator Dr. Tsai. Advised fluid bolus and IV antibiotics and admit patient to IMC at the main hospital. 21:20 PM. Patient is awake alert and answered questions appropriately now. Lung examination diffuse diffuse rhonchi without wheezing, not worse since IV fluid given. O2 saturation stable. I spoke with general surgeon Dr. Joao mclaughlin. Patient will be admitted to the automatic riveting machine operator and consulted the surgeon. May need cholecystotomy tube until patient stable for surgery. Diagnosis Primary Impression: Sepsis Qualified Code: A41.9 - Sepsis, due to unspecified organism Additional Impressions: Acute renal failure Qualified Code: N17.9 - Acute renal failure, unspecified acute renal failure type Elevated troponin Rhabdomyolysis Qualified Code: M62.82 - Non-traumatic rhabdomyolysis Acute cholecystitis Admitting Information Admitting Physician Requests: Admit Jose Luis Metz MD July 25, 2016 18:47
[2016-07-25] MEDS ORDERED: CIPR-9 PO (18:48)
[2016-07-25] MEDS ORDERED: ROPI4TAB PO (18:49)
[2016-07-25 18:58] LABS: AUTOMATED NEUTROPHIL # 18.3 TH/MM3 (1.8-7.7); BASOPHIL # 0.2 TH/MM3 (0-0.2); EOSINOPHIL % 0.1 % (0.0-4.0); HEMATOCRIT 36.3 % (35.0-46.0); LYMPH % 1.2 % (9.0-44.0); LYMPHOCYTE # 0.2 TH/MM3 (1.0-4.8); MEAN CELL VOLUME 96.6 FL (80.0-100.0); MEAN CORPUSCULAR HEMOGLOBIN 31.7 PG (27.0-34.0); MEAN CORPUSCULAR HGB CONC 32.8 % (32.0-36.0); MONO % 5.9 % (0.0-8.0); NEUT % 91.8 % (16.0-70.0); PLATELET COUNT 126 TH/MM3 (150-450); RED BLOOD COUNT 3.75 MIL/MM3 (4.00-5.30); RED CELL DISTRIBUTION WIDTH 14.2 % (11.6-17.2); WHITE BLOOD COUNT 19.9 TH/MM3 (4.0-11.0)
[2016-07-25 18:59] LABS: BLOOD GAS BASE EXCESS -9.4 mmol/L (-2-2); BLOOD GAS CARBOXYHEMOGLOBIN 1.7 % (0-4); BLOOD GAS HCO3 15 mmol/L (22-26); BLOOD GAS METHEMOGLOBIN 1.2 % (0-2); BLOOD GAS O2 HGB SATURATION 77 % (90-100); BLOOD GAS OXYGEN CONTENT 12.1 Vol % (12.0-20.0); BLOOD GAS PCO2 27 mmHG (38-42); BLOOD GAS PO2 52 mmHG (61-120); BLOOD GAS TOTAL HGB 11.2 G/DL (12.0-16.0); CRITICAL VALUE YES; DRAW SITE RT RADIAL; FIO2 21 %; NUMBER OF ARTERIAL PUNCTURES 1; STAT YES; TEMP CORR TO 98.6; ULNAR PULSE Y
[2016-07-25 19:00] LABS: HEMO FLAGS DIFF FINAL
[2016-07-25] MEDS ORDERED: RESP: ALBUTEROL 2.5 MG/IPRATROPIUM 0.5 MG NEB (SCH) INH ONE (19:00)
[2016-07-25 19:10] LABS: CHLORIDE 94 MEQ/L (98-107); POTASSIUM 4.8 MEQ/L (3.5-5.1); SODIUM (NA) 133 MEQ/L (136-145)
[2016-07-25 19:14] LABS: ANION GAP 19 MEQ/L (5-15); BICARBONATE 19.8 MEQ/L (21.0-32.0)
--- NOTE | 2016-07-25 19:14 | RADHPO ---
EXAM DATE/TIME: 07/25/2016 19:01 [facility] COMPARISON: No previous studies available for comparison. INDICATIONS : Syncopal episode today MEDICAL HISTORY : None. SURGICAL HISTORY : None. ENCOUNTER: Initial ACUITY: 1 day PAIN SCORE: Non-responsive. LOCATION: Bilateral chest FINDINGS: The cardiac silhouette is enlarged in transverse diameter. The lungs are free of acute parenchymal op acity. No effusions are identified. There is prominence of the aortic knob is with calcification sary acteristic of atherosclerotic vascular disease. CONCLUSION: 1. Cardiomegaly. No acute pulmonary disease. Trenton Oneal MD on July 25, 2016 at 19:12 Board Certified Radiologist. This report was verified electronically.
[2016-07-25 19:15] LABS: APTT (PATIENT) 37.4 SEC (24.3-30.1); BLOOD UREA NITROGEN 42 MG/DL (7-18); INTERNATIONAL NORMALIZED RATIO 2.7 RATIO; PROTHROMBIN TIME - PATIENT 31.1 SEC (9.8-11.6)
[2016-07-25 19:18] LABS: GLOMERULAR FILTRATION RATE 19 ML/MIN (>89)
[2016-07-25 19:19] LABS: TOTAL BILIRUBIN ADULT 2.2 MG/DL (0.2-1.0)
[2016-07-25 19:20] LABS: ALKALINE PHOSPHATASE 123 U/L (45-117)
[2016-07-25 19:25] LABS: ALT (GPT) 1932 U/L (10-53)
[2016-07-25] MEDS ORDERED: SODIUM CHLOR 0.9% 1000 ML INJ 1,000 ML IV SCH (19:30)
[2016-07-25 19:32] LABS: CREATINE KINASE 1644 U/L (26-192)
[2016-07-25 19:42] LABS: AST (GOT) 10426 U/L (15-37)
[2016-07-25 19:44] LABS: CKMB 16.3 NG/ML (0.5-3.6)
[2016-07-25 19:54] LABS: BLOOD, URINE LARGE (NEG); GLUCOSE,URINE NEG (NEG); KETONE, URINE TRACE mg/dL (NEG); NITRITE,URINE NEG (NEG); PH, URINE 5.5 (5.0-8.5)
[2016-07-25 20:03] LABS: BACTERIA, URINE MANY /hpf; RBC, URINE 0-3 /hpf (0-3); URINE COLOR AMBER (YELLW/STRAW)
[2016-07-25 20:04] LABS: COMMENT (UR) CATH-CULTURE IND; CULTURE IF INDICATED CATH CULTURE IND
[2016-07-25 20:51] LABS: LACTIC ACID GHOST NOT REPORTABLE
--- NOTE | 2016-07-25 20:53 | RADHPO ---
EXAM DATE/TIME: 07/25/2016 20:25 [facility] COMPARISON: CT BRAIN W/O CONTRAST, June 21, 2016, 11:45. INDICATIONS : Altered mental status. RADIATION DOSE: 61.97 CTDIvol (mGy) MEDICAL HISTORY : Hypertension. Parkinsons. SURGICAL HISTORY : None. ENCOUNTER: Initial ACUITY: 1 day PAIN SCALE: 0/10 LOCATION: cranial TECHNIQUE: Multiple contiguous axial images were obtained of the head. Using automated exposure control and adj ustment of the mA and/or kV according to patient size, radiation dose was kept as low as reasonably a chievable to obtain optimal diagnostic quality images. FINDINGS: Noncontrast axial head CT demonstrates the ventricles to be normal in size and configuration with a n ormal sulcal pattern. No acute intracranial hemorrhage, acute cortical infarction, mass or midline sh ift is seen. Posterior fossa structures are unremarkable. Bone windows demonstrate mucosal disease in the right frontal sinus with bowing of the septum to the left. There is also mucosal disease involving the ethmoid air cells. Sinus CT could be performed atel ecta basis for further evaluation. There has been no significant change when compared to the prior ex am. CONCLUSION: 1. No evidence of acute intracranial pathology. No masses are identified. 2. Sinus disease as above Trenton Oneal MD on July 25, 2016 at 20:50 Board Certified Radiologist. This report was verified electronically.
--- NOTE | 2016-07-25 21:06 | RADHPO ---
EXAM DATE/TIME: 07/25/2016 20:28 [facility] COMPARISON: CT ABDOMEN & PELVIS W CONTRAST, January 22, 2016, 17:53. INDICATIONS : Fever. Elevated liver tests. ORAL CONTRAST: No oral contrast ingested. RADIATION DOSE: 15.91 CTDIvol (mGy) MEDICAL HISTORY : Cardiovascular disease. Hernia, hiatal. Gastroesophageal reflux disease. SURGICAL HISTORY : Appendectomy. Spinal cord stimulator. ENCOUNTER: Initial ACUITY: 1 day PAIN SCALE: Non-responsive LOCATION: abdomen TECHNIQUE: Volumetric scanning of the abdomen and pelvis was performed. Using automated exposure control and ad justment of the mA and/or kV according to patient size, radiation dose was kept as low as reasonably achievable to obtain optimal diagnostic quality images. FINDINGS: A small right sided effusion is present. There is subsegmental atelectasis in the left base. The live r and spleen are normal in size and no focal defects are identified. There is extensive pericholecyst ic fluid surrounding the gallbladder without gallstones suspicious for acalculus cholecystitis. The p ancreas demonstrates no evidence of mass and there is no dilatation of the pancreatic duct. The adren al glands are unremarkable. The left kidney is unremarkable. There are multiple stones within the rig ht kidney without hydronephrosis the largest measuring 6 mm in the renal pelvis A small amount of free fluid is present within the pelvis. A Merlos catheter is present within the david dder which does not allow for evaluation. CONCLUSION: 1. Findings suspicious for acalculus cholecystitis. Radionuclide imaging is recommended for further evaluation if clinically indicated. Trenton Oneal MD on July 25, 2016 at 21:01 Board Certified Radiologist. This report was verified electronically.
--- NOTE | 2016-07-25 23:19 | HHI.HP ---
HPI Service Critical Care Medicine Primary Care Physician Bucky Amos M.D. Admission Diagnosis sepsis. Acute kidney injury. Elevated LFTs. Elevated troponin. R Diagnosis: Travel History International Travel<30 Days: No Contact w/Intl Traveler <30 Da: No Traveled to Known Affected Are: No History of Present Illness 61-year-old female was brought in by EMS for fever and lethargy. Patient was seen at local urgent care center 3 days ago with diagnosis of UTI. She was given prescription for Cipro. EMS was called today because patient has increasing lethargy and fever. Per patient 's she started hallucinating about 6 days ago. She was becoming progressively more lethargic and hallucinating to the point of patient could not talk much today. Patient has history of CAD, DC, status post stent placement, history of PAD status post stent placement on the lower extremity, COPD, and she is an active smoker. She is also history of Parkinson's disease, hypertension, hyperlipidemia, systemic scleroderma, fibromyalgia. 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 Wilson. Patient's family physician Dr. Amos. Patient has a signed DNR. Review of Systems ROS Unable to obtain patient is too lethargic Past Family Social History Allergies: Uncoded Allergies: ZOMAX (Allergy, Severe, SHOCK, 01/22/16) . Past Medical History Coronary artery disease status post DC and stent placement Peripheral vascular disease - status post stent placement on the lower extremity COPD - an active smoker Parkinson's disease Hypertension Hyperlipidemia Systemic scleroderma Fibromyalgia Past Surgical History Appendectomy C-spine surgery with spinal cord stimulator Cardiac stents and bilateral lower extremity stents Tonsillectomy Septoplasty Reported Medications Reported Meds & Active Scripts Active Reported Ropinirole 4 Mg Tab 4 Mg PO HS Cipro (Ciprofloxacin HCl) 500 Mg Tab 500 Mg PO BID Vitamin B-12 (Cyanocobalamin) 1,000 Mcg Tab 1,000 Mcg PO DAILY Fluoxetine (Fluoxetine HCl) 20 Mg Cap 50 Mg PO BID Levothyroxine (Levothyroxine Sodium) 50 Mcg Tab 50 Mcg PO DAILY Sinemet (Carbidopa-Levodopa) 25-100 Mg Tab 1 Tab PO Q8HR Venlafaxine ER 24 HR (Venlafaxine HCl) 150 Mg Tab 150 Mg PO DAILY Modafinil 100 Mg Tab 100 Mg PO DAILY Zolpimist (Zolpidem Tartrate) 5 Mg/Act Spr 10 Mg PO HS Clonidine (Clonidine HCl) 0.1 Mg Tab 0.1 Mg PO BID Flonase Nasal Mathews (Fluticasone Nasal Mathews) 50 Mcg/Act Mathews Unknown Dose EACH NARE BID Clopidogrel (Clopidogrel Bisulfate) 75 Mg Tab 75 Mg PO DAILY Ditropan (Oxybutynin Chloride) 5 Mg Tab 5 Mg PO Q12HR Nitrostat SL (Nitroglycerin) 0.4 Mg Subl 0.4 Mg SL DIRECTED PRN ONE TABLET UNDER THE TONGUE NEEDED FOR CHEST PAIN, MAY REPEAT EVERY FIVE MINUTES FOR A TOTAL OF 3 DOSES OR CALL 911 IF NO RELIEF Omeprazole 40 Mg Cap 40 Mg PO BID Ecotrin Low Strength (Aspirin) 81 Mg Tabdr 81 Mg PO DAILY Simvastatin 20 Mg Tab 20 Mg PO DAILY Linzess (Linaclotide) 145 Mcg Cap 145 Mcg PO DAILY Oxycodone (Oxycodone HCl) 10 Mg Tab 10 Mg PO Q4HR Spironolactone 25 Mg Tab 25 Mg PO BIDPC Metoprolol Succinate ER 24 HR (Metoprolol Succinate) 50 Mg Tab 50 Mg PO BID Prednisone 5 Mg Tab 5 Mg PO DAILY Lyrica (Pregabalin) 225 Mg Cap 225 Mg PO HS Active Ordered Medications Current Medications Medications (Trade) Dose Ordered Sig/Jasmyn Route PRN Reason Start Time Stop Time Status Last Admin Dose Admin Sodium Chloride (NS 1000 ml Inj) 1,000 ml @ 125 mls/hr Q8H IV 07/26/16 03:20 07/26/16 04:12 Sodium Chloride (NS Flush) 2 ml UNSCH PRN IV FLUSH FLUSH AFTER USING IV ACCESS 07/26/16 03:30 Sodium Chloride (NS Flush) 2 ml BID IV FLUSH 07/26/16 09:00 Famotidine (Pepcid Inj) 10 mg Q12HR IV PUSH 07/26/16 09:00 Heparin Sodium (Porcine) 5000 units 5,000 units Q12H SQ 07/26/16 09:00 Pharmacy Profile Note (Vancomycin Consult Pharmacy) 0 ml @ 0 mls/hr UNSCH OTHER 07/26/16 03:30 Miscellaneous Information 1 [id number] XX 07/26/16 03:30 07/26/16 03:30 Chlorhexidine Gluconate (Chlorhexidine 2% Cloth) 3 pack Taper DAILY@04 TOP 07/26/16 04:00 07/22/17 03:59 07/26/16 04:00 Chlorhexidine Gluconate 3 pack 3 pack UNSCH PRN TOP HYGIENIC CARE 07/26/16 03:30 Piperacillin Sod/ Tazobactam Sod (Zosyn 2.25 Gm Premix) 50 ml @ 100 mls/hr Q8H IV 07/26/16 04:00 Family History Noncontributory Social History Smokes half pack per day Negative for alcohol and illicit drug abuse Physical Exam Vital Signs Vital Signs Date Time Temp Pulse Resp B/P Pulse Ox O2 Delivery O2 Flow Rate FiO2 07/25/16 22:47 97.9 77 20 165/82 94 07/25/16 21:00 74 30 94 2 07/25/16 20:27 100.9 07/25/16 20:05 78 34 154/91 94 Nasal Cannula 2 07/25/16 19:45 80 34 160/76 94 Nasal Cannula 2 07/25/16 19:44 94 Room Air 2 07/25/16 19:25 80 36 149/84 92 Nasal Cannula 2 07/25/16 19:22 92 Nasal Cannula 3.00 07/25/16 19:00 84 36 152/99 94 Nasal Cannula 2 07/25/16 19:00 84 36 92 Nasal Cannula 2 07/25/16 18:58 34 98 Nasal Cannula 2 07/25/16 18:40 103.4 85 34 102/69 98 Physical Exam GENERAL: Well-nourished, well-developed patient. Lethargic female in no acute distress SKIN: Warm and dry. HEAD: Normocephalic. EYES: No scleral icterus. No injection or drainage. NECK: Supple, trachea midline. No JVD or lymphadenopathy. CARDIOVASCULAR: Regular rate and rhythm without murmurs, gallops, or rubs. RESPIRATORY: Breath sounds equal bilaterally. No accessory muscle use. GASTROINTESTINAL: Abdomen soft, non-tender, nondistended. MUSCULOSKELETAL: No cyanosis, or edema. BACK: Nontender without obvious deformity. No CVA tenderness. EXTREMITIES: No clubbing cyanosis or edema Laboratory Laboratory Tests Test 07/25/16 07/25/16 07/25/16 07/25/16 18:45 18:50 19:44 21:11 White Blood Count 19.9 Red Blood Count 3.75 Hemoglobin 11.9 Hematocrit 36.3 Mean Corpuscular Volume 96.6 Mean Corpuscular Hemoglobin 31.7 Mean Corpuscular Hemoglobin 32.8 Concent Red Cell Distribution Width 14.2 Platelet Count 126 Mean Platelet Volume 8.4 Neutrophils (%) (Auto) 91.8 Lymphocytes (%) (Auto) 1.2 Monocytes (%) (Auto) 5.9 Eosinophils (%) (Auto) 0.1 Basophils (%) (Auto) 1.0 Neutrophils # (Auto) 18.3 Lymphocytes # (Auto) 0.2 Monocytes # (Auto) 1.2 Eosinophils # (Auto) 0.0 Basophils # (Auto) 0.2 CBC Comment DIFF FINAL Differential Comment Prothrombin Time 31.1 Prothromb Time International 2.7 Ratio Activated Partial 37.4 Thromboplast Time Sodium Level 133 Potassium Level 4.8 Chloride Level 94 Carbon Dioxide Level 19.8 Anion Gap 19 Blood Urea Nitrogen 42 Creatinine 2.50 Estimat Glomerular Filtration 19 Rate Random Glucose 108 Lactic Acid Level 9.6 6.4 Calcium Level 8.3 Total Bilirubin 2.2 Aspartate Amino Transf 13910 (AST/SGOT) Alanine Aminotransferase 1932 (ALT/SGPT) Alkaline Phosphatase 123 Total Creatine Kinase 1644 Creatine Kinase MB 16.3 Creatine Kinase MB % 1.0 Troponin I 2.97 B-Type Natriuretic Peptide GREATER THAN 5000 Total Protein 6.1 Albumin 3.5 Thyroid Stimulating Hormone 0.189 3rd Gen Blood Gas Puncture Site RT RADIAL Blood Gas Patient Temperature 98.6 Blood Gas HCO3 15 Blood Gas Base Excess -9.4 Blood Gas Oxygen Saturation 77 Arterial Blood pH 7.37 Arterial Blood Partial 27 Pressure CO2 Arterial Blood Partial 52 Pressure O2 Arterial Blood Oxygen Content 12.1 Arterial Blood 1.7 Carboxyhemoglobin Arterial Blood Methemoglobin 1.2 Blood Gas Hemoglobin 11.2 Blood Gas Inspired Oxygen 21 Urine Color KIRILL Urine Turbidity SLIGHT Urine pH 5.5 Urine Specific [place] 1.020 Urine Protein 300 OR GREATER Urine Glucose (UA) NEG Urine Ketones TRACE Urine Occult Blood LARGE Urine Nitrite NEG Urine Bilirubin MOD Urine Leukocyte Esterase NEG Urine RBC 0-3 Urine WBC 3-5 Urine Squamous Epithelial 6-8 Cells Urine Amorphous Sediment MOD Urine Bacteria MANY Microscopic Urinalysis Comment CATH-CULTURE IND Date/Time Procedure Status Source Growth 07/25/16 19:44 Urine Culture Received Urine Catheterized Urine Pending 07/25/16 19:10 Aerobic Blood Culture Received Blood Peripheral Pending 07/25/16 19:10 Anaerobic Blood Culture Received Blood Peripheral Pending Result Diagram: 07/25/16 3098 07/25/16 1845 Imaging Last 24 hours Impressions Abdomen/Pelvis CT 07/25/16 1944 Signed Impressions: Service Date/Time: Monday, July 25, 2016 20:28 - CONCLUSION: 1. Findings suspicious for acalculus cholecystitis. Radionuclide imaging is recommended for further evaluation if clinically indicated. Trenton Oneal MD Head CT [id number]/25/[id number] Signed Impressions: Service Date/Time: Monday, July 25, 2016 20:25 - CONCLUSION: 1. No evidence of acute intracranial pathology. No masses are identified. 2. Sinus disease as above Trenton Oneal MD Chest X-Ray [id number] Signed Impressions: Service Date/Time: Monday, July 25, 2016 19:01 - CONCLUSION: 1. Cardiomegaly. No acute pulmonary disease. Trenton Oneal MD Assessment and Plan Assessment and Plan Sepsis - Acute cholecystitis - Broad-spectrum antibiotics - Pancultures - Cholecystostomy tube by IR - General surgery consult to Dr. Alva - Aggressive IV fluids resuscitation - Strict I's and O's Shock liver - Due to above - Treat underlying condition Acute kidney injury - Due to sepsis - Hold diuretics - Avoid nephrotoxin - Strict I's and O's - IV fluid hydration - Monitor electrolytes and creatinine Coagulopathy - Due to sepsis and shock liver - Monitor PT/INR - No active bleeding - May needs reversal prior surgery and procedures Parkinson's disease - Resume home Sinemet Hypothyroidism - Levothyroxin Systemic scleroderma - Continue low dose steroids Depression - Fluoxetine - Effexor Coronary artery disease - Elevated troponin - Most likely due to sepsis - Continue aspirin - Hold Plavix for possible surgical and interventional procedures - Cardiology consult DVT GI prophylaxis - Teds SCDs - Hold pharmacological DVT prophylaxis due to coagulopathy - Pepcid Critical Care: The total critical care time was 35 minutes. Time to perform other separately billable procedures was not included in the critical care time. Jarek Tsai MD July 25, 2016 23:19
[2016-07-26] VITALS (18 sets, daily range): BP systolic 112–174; BP diastolic 55–81; PULSE 75–90; RESP 28–34; TEMP 98–101.7; O2SAT 94–100
[2016-07-26] MEDS ORDERED: CHLORHEXIDINE GLUCONATE 2 % 1 PACK (2 CLOTHS)(extra cloths) TOPICAL PRN (00:45)
[2016-07-26] MEDS ORDERED: SODIUM CHLOR 0.9% 1000 ML INJ 1,000 ML IV SCH (03:20)
[2016-07-26] MEDS ORDERED: Vancomycin Consult Pharmacy 1 EA OTHER SCH (03:30)
[2016-07-26] MEDS ORDERED: PIPERACIL-TAZO 4.5 GM PREMIX 100 ML IV SCH (03:30)
[2016-07-26] MEDS ORDERED: SODIUM CHLORIDE 0.9% FLUSH 10 ML FLUSH IV FLUSH PRN (03:30)
[2016-07-26] MEDS ORDERED: MISCELLANEOUS NURSING INFORMATION XX SCH (03:30)
[2016-07-26] MEDS ORDERED: VANCOMYCIN INJ 1,000 MG in SODIUM CHLOR 0.9% 250 ML INJ 250 ML IV SCH (03:30)
[2016-07-26] MEDS ORDERED: CHLORHEXIDINE GLUCONATE 2 % 1 PACK (2 CLOTHS) TOP PRN (03:30)
[2016-07-26] MEDS ORDERED: CHLORHEXIDINE GLUCONATE 2 % 1 PACK (2 CLOTHS)(taper/protocol) TOPICAL SCH (04:00)
[2016-07-26] MEDS: CHLORHEXIDINE GLUCONATE 2 % 1 PACK (2 CLOTHS) TOP SCH ×2 (04:00→20:59)
[2016-07-26] MEDS ORDERED: RESP: ALBUTEROL 2.5 MG/IPRATROPIUM 0.5 MG NEB (PRN) NEB (04:00)
[2016-07-26 04:26] LABS: BASOPHIL # 0.1 TH/MM3 (0-0.2); BASOPHIL % 0.2 % (0.0-2.0); HEMATOCRIT 37.6 % (35.0-46.0); LYMPH % 1.5 % (9.0-44.0); LYMPHOCYTE # 0.4 TH/MM3 (1.0-4.8); MEAN CELL VOLUME 98.1 FL (80.0-100.0); MEAN CORPUSCULAR HEMOGLOBIN 31.5 PG (27.0-34.0); MEAN CORPUSCULAR HGB CONC 32.1 % (32.0-36.0); MONO % 4.1 % (0.0-8.0); NEUT % 94.2 % (16.0-70.0); PLATELET COUNT 87 TH/MM3 (150-450); RED BLOOD COUNT 3.83 MIL/MM3 (4.00-5.30); RED CELL DISTRIBUTION WIDTH 14.7 % (11.6-17.2); WHITE BLOOD COUNT 23.4 TH/MM3 (4.0-11.0)
[2016-07-26 04:29] LABS: HEMO FLAGS AUTO DIFF
[2016-07-26] MEDS: PIPERACIL-TAZO 2.25 GM PREMIX 50 ML IV SCH ×2 (04:33→11:30)
[2016-07-26 04:43] LABS: ANION GAP 23 MEQ/L (5-15); BICARBONATE 14.8 MEQ/L (21.0-32.0); BLOOD UREA NITROGEN 42 MG/DL (7-18); CHLORIDE 101 MEQ/L (98-107); GLOMERULAR FILTRATION RATE 18 ML/MIN (>89); POTASSIUM 5.1 MEQ/L (3.5-5.1); SODIUM (NA) 139 MEQ/L (136-145)
[2016-07-26 04:59] LABS: ALKALINE PHOSPHATASE 120 U/L (45-117); ALT (GPT) 1820 U/L (10-53); AST (GOT) 9501 U/L (15-37); BANDS 5 % (0-6); METAMYELOCYTES 1 % (0-1); NEUTROPHIL # MANUAL DIFF 22.5 TH/MM3 (1.8-7.7); POLYS (SEG NEUTROPHILS) 90 % (16-70); SCAN/DIFF FINAL DIFF MANUAL; TOTAL BILIRUBIN ADULT 3.1 MG/DL (0.2-1.0); WBC DIFF SAMPLE 100
[2016-07-26 05:00] LABS: OVALOCYTES 1+ (NORMAL); PLATELET ESTIMATE SMEAR LOW (NORMAL); PLATELET MORPHOLOGY NORMAL (NORMAL)
[2016-07-26] MEDS ORDERED: LINZESS 145 MCG PO SCH (05:00)
[2016-07-26] MEDS ORDERED: LEVOTHYROXINE SODIUM 50 MCG TAB PO SCH (06:00)
[2016-07-26 06:20] LABS: LACTIC ACID GHOST NOT REPORTABLE
[2016-07-26] MEDS: CARBIDOPA/LEVODOPA 25 MG/100 MG TAB PO SCH ×3 (06:45→20:59)
--- NOTE | 2016-07-26 08:19 | MB ---
cc: ANA WILSON MD DATE OF CONSULTATION 07/26/2016 REASON FOR CONSULTATION Elevated troponin. HISTORY OF PRESENT ILLNESS Ms. Angelita Breen is a 61-year-old female who does have a history of CAD, PAD and Parkinson's. She was brought in for fever and lethargy and subsequently found to have sepsis from a UTI. Her cardiac enzymes are elevated and, given her history of CAD, Cardiology was subsequently requested to evaluate the patient. She denies any chest pain or shortness of breath to me. PAST MEDICAL HISTORY 1. Hypertension. 2. Hyperlipidemia. 3. Prior CAD with stent and OR. 4. COPD. 5. Depression. 6. GERD. 7. Hiatal hernia. 8. PAD. 9. Sleep apnea. 10. Parkinson's. SOCIAL HISTORY Per the record includes tobacco use. REVIEW OF SYSTEMS, FAMILY HISTORY Not unobtainable. ALLERGIES ZOMAX. CURRENT MEDICATIONS Per the record. OUTPATIENT MEDICATIONS Also per the record. PHYSICAL EXAMINATION VITAL SIGNS: Stable. GENERAL: The patient is in no apparent distress. She is alert and oriented to person only. NECK: Free from JVD. LUNGS: The lungs have rhonchi throughout. CARDIOVASCULAR EXAMINATION: She has a normal S1 and S2. I was unable to appreciate any murmurs, rubs or gallops. ABDOMEN: Soft. EXTREMITIES: Free from edema. PLAN Lab values show a white count of 23,000, creatinine of 2.7 and a troponin of 10.3. Her bilirubin is 3.1 and AST is 9501. BNP is greater than 5000. IMPRESSIONS Elevated troponin - The patient has had severe and profound sepsis. At this point the troponin elevation could be from the sepsis versus an ischemic etiology. She is not a revascularization candidate currently at this time. Thus at this point I would continue with conservative medical measures as well as an echocardiogram. Sepsis - This is being managed by the primary team. It is noted that she has essentially multisystem failure and her overall prognosis is quite grim. DNR - This is appropriate. Sincerely, Ana Wilson M.D. HOLDEN/DAISY /7:57 AM /8:06 AM
[2016-07-26] MEDS: VENLAFAXINE HCL XR 75 MG CAP PO SCH (08:39)
[2016-07-26] MEDS: OXYBUTYNIN CHLORIDE 5 MG TAB PO SCH ×2 (08:39→20:58)
[2016-07-26] MEDS: CARVEDILOL 3.125 MG TAB PO SCH ×2 (08:39→20:57)
[2016-07-26] MEDS: CYANOCOBALAMIN 1,000 MCG TAB PO SCH (08:39)
[2016-07-26] MEDS: FLUoxetine HCL 20 MG CAP PO SCH ×2 (08:39→20:58)
[2016-07-26] MEDS: ASPIRIN EC 81 MG TABEC PO SCH (08:39)
[2016-07-26] MEDS: FLUoxetine HCL 10 MG CAP PO SCH ×2 (08:39→20:58)
[2016-07-26] MEDS: HEPARIN SODIUM - SQ 10,000 UNITS/ML VIAL SQ SCH ×2 (08:40→09:00)
[2016-07-26] MEDS: SODIUM CHLORIDE 0.9% FLUSH 10 ML FLUSH IV FLUSH SCH ×2 (08:40→20:57)
[2016-07-26] MEDS ORDERED: predniSONE 5 MG TAB PO SCH (09:00)
[2016-07-26] MEDS ORDERED: FAMOTIDINE 20 MG/2 ML VIAL IV PUSH SCH (09:00)
[2016-07-26] MEDS ORDERED: PHYTONADIONE 5 MG TAB PO ONE (09:15)
--- NOTE | 2016-07-26 09:42 | HHI.CCPN ---
Subjective Remarks/Hospital Course 61-year-old female was brought in by EMS for fever and lethargy. Patient was seen at local urgent care center 3 days ago with diagnosis of UTI. She was given prescription for Cipro. EMS was called today because patient has increasing lethargy and fever. Per patient 's she started hallucinating about 6 days ago. She was becoming progressively more lethargic and hallucinating to the point of patient could not talk much today. Patient has history of CAD, IN, status post stent placement, history of PAD status post stent placement on the lower extremity, COPD, and she is an active smoker. She is also history of Parkinson's disease, hypertension, hyperlipidemia, systemic scleroderma, fibromyalgia. 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 Patient's family physician Dr. Amos. Patient has a signed DNR. Subjective 07/26: Patient is unable to speak more than 1 word at a time due to tachypnea. Using accessory muscles. Patient is a full DNR according to at bedside. Remains hypertensive. Objective Vital Signs Date Time Temp Pulse Resp B/P Pulse Ox O2 Delivery O2 Flow Rate FiO2 07/26/16 08:00 90 07/26/16 08:00 98.7 32 168/77 100 07/26/16 06:28 Nasal Cannula 4.00 Intake and Output 07/25/16 07/25/16 07/26/16 08:00 16:00 00:00 Intake Total 2300 ml Output Total 400 ml Balance 1900 ml Result Diagram: 07/26/16 0419 07/26/16 0419 Other Results Microbiology Date/Time Procedure Status Source Growth 07/25/16 19:44 Urine Culture Received Urine Catheterized Urine Pending 07/25/16 19:10 Aerobic Blood Culture Received Blood Peripheral Pending 07/25/16 19:10 Anaerobic Blood Culture Received Blood Peripheral Pending Imaging Last Impressions Abdomen/Pelvis CT 07/25/16 1944 Signed Impressions: Service Date/Time: Monday, July 25, 2016 20:28 - CONCLUSION: 1. Findings suspicious for acalculus cholecystitis. Radionuclide imaging is recommended for further evaluation if clinically indicated. Trenton Oneal MD Head CT 07/25/16 1838 Signed Impressions: Service Date/Time: Monday, July 25, 2016 20:25 - CONCLUSION: 1. No evidence of acute intracranial pathology. No masses are identified. 2. Sinus disease as above Trenton Oneal MD Chest X-Ray 07/25/16 [id number] Signed Impressions: Service Date/Time: Monday, July 25, 2016 19:01 - CONCLUSION: 1. Cardiomegaly. No acute pulmonary disease. Trenton Oneal MD Objective Remarks GENERAL: 61-year-old female, critically ill currently resting in bed in no respiratory distress SKIN: Warm and moist. HEAD: Prior bruising to right forehead. Normocephalic. EYES: Pupils equal and round about 3 mm bilaterally and reactive. No scleral icterus. No injection or drainage. ENT: No nasal bleeding or discharge. Mucous membranes pink and moist. NECK: Trachea midline. No JVD. CARDIOVASCULAR: Tachycardic, RR. S1, S2 no S4. Question S3. Without murmur RESPIRATORY: Positive accessory muscle use. Coarse crackles appreciated bilaterally. GASTROINTESTINAL: Abdomen soft tender palpation epigastric/right upper quadrant. Hypoactive bowel sounds are appreciated MUSCULOSKELETAL: Extremities trace lower extremity pitting edema. No obvious deformities. NEUROLOGICAL: Awake and alert. No obvious cranial nerve deficits. Follows commands. Moves all 4 extremities spontaneously. A/P Assessment and Plan Neuro/Psych: History of CVA Depression Parkinson's disease - times [address] Simons Fibromyalgia Acute toxic metabolic encephalopathy CT head 07/25 revealed right frontal sinus disease/ethmoid air cell disease. No acute intracranial CVA or bleed identified. Patient is currently on Sinemet 25/100 one tablet 3 times a day for Parkinson's disease. Continue Patient is on Requip 4 mg by mouth daily. Continue Patient is on Lyrica 225 mg a night. Decreased to 50 mg at night Prozac 50 mg twice daily and Effexor XR 150 mg daily for depression. Continue Morphine for pain management Patient is on Provigil 100 mg by mouth daily She is on Ambien 10 mg at night for insomnia. CV: Non-STEMI - elevated troponin 2.87 Hypertension Dyslipidemia Coronary disease status post single stent Peripheral arterial disease status post 2 left/ 1 right lower stent placement Lactic acidosis Cardiology/Dr. Wilson consulted Status post 3 L normal saline overnight. Currently on sterile water with 3 ampules of bicarbonate 150 cc an hour On Lopressor 5 IV every 6 hours for non-STEMI. On Lopressor 50 mill grams by mouth twice a day at home. Also on clonidine 0.1 mg by mouth twice a day at home. Continue Plavix 75 mg daily and aspirin 81 mg by mouth daily with history of stent/non-STEMI Serial lactates until cleared Repeat echocardiogram Repeat troponin hOlding spironolactone 25 mg by mouth twice a day/home medication Holding simvastatin 20 mill grams by mouth daily light of elevated liver function tests Resp: COPD Sleep apnea does not use CPAP Nasal cannula to maintain saturations greater than or equal to 92% Incentive spirometry while awake Chest x-ray 07/25 revealed no acute cardio pulmonary findings Bronchodilator therapy every 6 hours and as needed GI: Elevated transaminases/shock liver Acalculous cholecystitis Hiatal hernia Gastroesophageal reflux disease Irritable bowel syndrome Plan for cholecystostomy tube with IR Dr. Joao Alva has been consulted for general surgery Patient currently is nothing by mouth CT abdomen/pelvis revealed right pleural effusion, Liberty-Colace fluid on the gallbladder without stone. Right-sided nephrolithiasis Patient is on Prilosec for by mouth daily for dyspepsia. Currently in IV Protonix Holding Linzess 145 mg by mouth daily : Merlos has been placed for accurate I's and O's in a critically ill patient Endo/rheum: Hypothyroidism Chronic steroid use Systemic scleroderma TSH 0.87. Decrease Levoxyl 25 g by mouth daily. On 50 by mouth daily at home Sliding scale insulin to maintain euglycemia Prednisone 5 mg daily converted hydrocortisone 50 mg IV daily Renal: Acute kidney injury Urinary incontinence Right nephrolithiasis without hydronephrosis No hydronephrosis and CT abdomen/pelvis Check urine electrolytes and eosinophils Monitor urine output Accurate I's and O's On Ditropan 5 mg by mouth twice a day at home. Heme: DIC Leukocytosis Normocytic anemia Thrombocytopenia Repeat DIC panel now. Transfuse FFP and cryoprecipitate prior to cholecystectomy to placement Source control ID: Recent urinary tract infection Day #2 Zosyn/vancomycin Pertinent cultures Blood cultures 2 pending FEN: Replace electrolytes as clinically indicated MSK: PT/OT evaluate and treat Access - Utilize peripheral IV. Central line if indicated Prophylaxis - GI - Protonix - DVT - SCD/holding pharmacological prophylaxis with elevated INR/PTT Critical Care: The total critical care time was 35 minutes. Time to perform other separately billable procedures was not included in the critical care time. Status with at bedside. Patient is a full DNR. Patient wouldn't want hemodialysis. We'll attempt optimal medical management. Patient is critically ill with multiple organ failure. We will consult palliative care for goals of care would be aggressive in the interim.. Seps is - Acute ne cystitis - Broad-spectrum antibiotics - Pancultures - Cholecystostomy tube by IR - General surgery consult to Dr. Alva - Aggressive IV fluids resuscitation - Strict I's and O's Shock liver - Due to above - Treat underlying condition Acute kidney injury - Due to sepsis - Hold diuretics - Avoid nephrotoxin - Strict I's and O's - IV fluid hydration - Monitor electrolytes and creatinine Coagulopathy - Due to sepsis and shock liver - Monitor PT/INR - No active bleeding - May needs reversal prior surgery and procedures Parkinson's disease - Resume home Sinemet Hypothyroidism - Levothyroxin Systemic scleroderma - Continue low dose steroids Depression - Fluoxetine - Effexor Coronary artery disease - Elevated troponin - Most likely due to sepsis - Continue aspirin - Hold Plavix for possible surgical and interventional procedures - Cardiology consult DVT GI prophylaxis - Teds SCDs - Hold pharmacological DVT prophylaxis due to coagulopathy - Pepcid Critical Care: The total critical care time was 35 minutes. Time to perform other separately billable procedures was not included in the critical care time. Giancarlo Ruiz MD July 26, 2016 09:42
[2016-07-26] MEDS ORDERED: SODIUM BICARBONATE 8.4% INJ 50 MEQ/50 ML SYR IV PUSH ONE (09:45)
[2016-07-26] MEDS: RESP: ALBUTEROL 2.5 MG/IPRATROPIUM 0.5 MG NEB (SCH) NEB ×3 (10:00→21:31)
[2016-07-26] MEDS ORDERED: PROTHROMBIN COMPLEX CONC INJ 1,500 UNITS in SYRINGE/BAG 1 EA IV ONE (10:30)
[2016-07-26] MEDS: MUPIROCIN 2% OINT 1 APPLIC/GM SYR EACH NARE SCH ×2 (10:31→20:57)
[2016-07-26] MEDS: HYDROCORTISONE SOD SUCCINATE 100 MG VIAL IV PUSH SCH (10:31)
[2016-07-26] MEDS: METOPROLOL TARTRATE 5 MG/5 ML VIAL IV PUSH SCH ×3 (10:32→20:59)
[2016-07-26 10:48] LABS: HDL CHOLESTEROL 24.6 MG/DL (40.0-60.0)
[2016-07-26] MEDS: SODIUM BICARBONATE 8.4% INJ 150 MEQ in WATER STERILE FOR INJ 850 ML IV SCH ×2 (10:52→18:13)
--- NOTE | 2016-07-26 11:03 | PD.CONS ---
Consult Service Palliative Care Consult Requested By Dr. Ruiz Primary Care Physician Bucky Amos M.D. Reason for Consultation a. To assist with evaluation and management of symptoms including:pain b. To assist medical decision maker(s) with: better understanding of current medical conditions; weighing benefits/burdens of medical treatment options; making medical treatment decisions. HPI History of Present Illness Pt is a 61 year old female with PMH significant for Parkinson's, systemic scleroderma, coronary artery disease (MS, status post stents), high cholesterol , COPD, fibromyalgia, GERD, hypertension, hiatal hernia, sleep apnea. Patient was brought in by EMS on 07/25/2016 for fever and lethargy. Patient was seen by local urgent care center 3 days ago with a diagnosis of UTI and was prescribed Cipro. She has also had associated hallucination, cough with congestion for 5 days. In the ER: * Temperature is 103.4, pulse is 85%, respirations 34, blood pressures 102/69, sats is 98% * WBCs 19.9, hemoglobin is 11.9, hematocrit is 36.3, platelet is 126 * Sodium is 133, potassium 4.8, chloride is 94, bicarbonate is 19.8, BUN is 42, creatinine is 2.50 * [place] [address], ALT is 1932, * troponin I is 2.97, BNP greater than 5000 * PH is 7.37, PCO2 is 27, PO2 is 52, bicarbonate is 15 * PTT 31.1, INR is 2.7, PTT is 37.4 * U a shows large occult blood negative for nitrate, negative for leukocyte esterase, urine bacteria many, culture indicated and depending * MRSA detected on MRSA screen * Blood cultures and urine cultures are pending. * Head CT shows no evidence of acute intracranial pathology * Chest x-ray shows cardiomegaly no pulmonary disease * Abdominal and pelvic CT, findings suspicious for crackles cholecystitis. * Patient given IV fluids, started on vancomycin, Zosyn. 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 Surgery was consulted and may need cholecystotomy tube. Cardiology was also consulted. * Patient has a DNR patient was transferred to ICU. == 07/26/2016- pt has elevated cardiac enzymes and was evaluated by cardiology. Cardiology feel elevated tropnin could be sepsis vs ischemic. Pt not a cadidate for revascularization, Echo ordered. Overall prognosis is noted to be grim by cardiology and noted that DNR is appropriate. Pt seen by palliative care and continue to have extreme tachypna, using accessory muscles. Palliative Care Consulted to review goals of care. On my visit today, pt is grimacing and confuse in pain. Could not really speak , at bedside state her pain has mostly been abdominal. Pt unable to elaborate more. Course of hospitalization and goals of care reviewed with pt' spouse. Pt's spouse is aware that despite, antibiotics, and continue treatment, pt at risk of sudden decline, have tremendous challenges to overcome and likely would not make it. ==He maintains and supports her DNR decision given, he endorse was her hx of sceleraderma and immune diseases. ==He hopes with interventional radiology drain placement, it can relief some symptoms of abdominal pain. == He is amenable to small doses of pain med to contorl pain. == After procedure should pt decline further or not rebound open to transition to comfort. Function/Cognitive Trajectory Pt dx with parkingsons 8 months ago, but has had significant falls. Pt has been able to do adls, but has poor balance and falls repeatedly. Pt is not on home O2. Past Family Social History Coded Allergies: *MDRO Multi-Drug Resistant Organism (Verified Adverse Reaction, Unknown, ) MRSA PCR screen POSITIVE-07/25/16 Uncoded Allergies: ZOMAX (Allergy, Severe, SHOCK, 01/22/16) . Past Medical History Parkinson's, systemic scleroderma, coronary artery disease (MS, status post stents), high cholesterol, COPD, fibromyalgia, GERD, hypertension, hiatal hernia, sleep apnea. Past Surgical History Appendectomy, plates and screws and neck, spinal cord stimulator, cardiac surgery with stent placement, inferior turbinate reduction with septoplasty, oral surgery as a child. Reported Medications Ropinirole 4 Mg Tab 4 Mg PO HS Cipro (Ciprofloxacin HCl) 500 Mg Tab 500 Mg PO BID Vitamin B-12 (Cyanocobalamin) 1,000 Mcg Tab 1,000 Mcg PO DAILY Fluoxetine (Fluoxetine HCl) 20 Mg Cap 50 Mg PO BID Levothyroxine (Levothyroxine Sodium) 50 Mcg Tab 50 Mcg PO DAILY Sinemet (Carbidopa-Levodopa) 25-100 Mg Tab 1 Tab PO Q8HR Venlafaxine ER 24 HR (Venlafaxine HCl) 150 Mg Tab 150 Mg PO DAILY Modafinil 100 Mg Tab 100 Mg PO DAILY Zolpimist (Zolpidem Tartrate) 5 Mg/Act Spr 10 Mg PO HS Clonidine (Clonidine HCl) 0.1 Mg Tab 0.1 Mg PO BID Flonase Nasal Robert (Fluticasone Nasal Robert) 50 Mcg/Act Robert Unknown Dose EACH NARE BID Clopidogrel (Clopidogrel Bisulfate) 75 Mg Tab 75 Mg PO DAILY Ditropan (Oxybutynin Chloride) 5 Mg Tab 5 Mg PO Q12HR Nitrostat SL (Nitroglycerin) 0.4 Mg Subl 0.4 Mg SL DIRECTED PRN ONE TABLET UNDER THE TONGUE NEEDED FOR CHEST PAIN, MAY REPEAT EVERY FIVE MINUTES FOR A TOTAL OF 3 DOSES OR CALL 911 IF NO RELIEF Omeprazole 40 Mg Cap 40 Mg PO BID Ecotrin Low Strength (Aspirin) 81 Mg Tabdr 81 Mg PO DAILY Simvastatin 20 Mg Tab 20 Mg PO DAILY Linzess (Linaclotide) 145 Mcg Cap 145 Mcg PO DAILY Oxycodone (Oxycodone HCl) 10 Mg Tab 10 Mg PO Q4HR Spironolactone 25 Mg Tab 25 Mg PO BIDPC Metoprolol Succinate ER 24 HR (Metoprolol Succinate) 50 Mg Tab 50 Mg PO BID Prednisone 5 Mg Tab 5 Mg PO DAILY Lyrica (Pregabalin) 225 Mg Cap 225 Mg PO HS Current Medications Medications (Trade) Dose Ordered Sig/Jasmyn Route Start Time Stop Time Status Last Admin (NS Flush) 2 ml UNSCH PRN IV FLUSH 07/26/16 03:30 (NS Flush) 2 ml BID IV FLUSH 07/26/16 09:00 07/26/16 08:40 Famotidine 10 mg 10 mg Q12HR IV PUSH 07/26/16 09:00 07/26/16 08:40 (Vancomycin Consult Pharmacy) 0 ml @ 0 mls/hr UNSCH OTHER 07/26/16 03:30 Miscellaneous Information 1 Q361D XX 07/26/16 03:30 07/26/16 03:30 (Chlorhexidine 2% Cloth) 3 pack Taper DAILY@04 TOP 07/26/16 04:00 07/22/17 03:59 07/26/16 04:00 Chlorhexidine Gluconate 3 pack 3 pack UNSCH PRN TOP 07/26/16 03:30 (Zosyn 2.25 Gm Premix) 50 ml @ 100 mls/hr Q8H IV 5/18/17 04:00 07/26/16 04:33 (Ecotrin Ec) 81 mg DAILY PO 07/26/16 09:00 07/26/16 08:39 (Sinemet 25-100 Mg) 1 tab Q8HR PO 07/26/16 06:00 07/26/16 06:45 (Vitamin B12) 1,000 mcg DAILY PO 07/26/16 09:00 07/26/16 08:39 (PROzac) 40 mg BID PO 07/26/16 09:00 07/26/16 08:39 (Ditropan) 5 mg Q12HR PO 07/26/16 09:00 07/26/16 08:39 (Effexor Xr) 150 mg DAILY PO 07/26/16 09:00 07/26/16 08:39 Patient Own Medication PT OWN MED: Capsu... DAILY PO 07/26/16 05:00 Hold (Requip) 4 mg HS PO 07/26/16 21:00 (Ambien) 10 mg HS PO 07/26/16 21:00 (PROzac) 10 mg BID PO 07/26/16 09:00 07/26/16 08:39 (Coreg) 3.125 mg Q12HR PO 07/26/16 09:00 07/26/16 08:39 Metoprolol Tartrate 5 mg 5 mg Q6H IV PUSH 07/26/16 10:00 (Sodium Bicarbonate 8.4% Inj/Sterile Water For Inj) 1,000 ml @ 150 mls/hr Q6H40M IV 07/26/16 11:00 (SoluCORTEF INJ) 50 mg DAILY IV PUSH 07/26/16 09:45 (Synthroid) 25 mcg DAILY@0600 PO 07/27/16 06:00 Mupirocin 1 applic 1 applic Taper BID EACH NARE 07/26/16 10:00 07/22/17 09:59 (Kcentra Inj/ Syringe/Bag) 0 ml @ 500 mls/hr ONCE ONCE IV 07/26/16 10:30 07/26/16 10:31 (Lyrica) 50 mg HS PO 07/26/16 21:00 Family History spouse report no family hx. 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 Spiritual/Cultural Factors Sikhism Documented care wishes: DNR completed. Physical Exam Vital Signs Date Time Temp Pulse Resp B/P Pulse Ox O2 Delivery O2 Flow Rate FiO2 07/26/16 08:00 90 07/26/16 08:00 98.7 90 32 168/77 100 07/26/16 07:10 94 Nasal Cannula 4.00 07/26/16 06:28 96 Nasal Cannula 4.00 07/26/16 06:00 80 07/26/16 04:00 79 07/26/16 04:00 98.4 79 30 161/72 95 07/26/16 02:00 84 07/26/16 00:00 98.2 75 30 154/81 94 07/26/16 00:00 75 07/25/16 23:54 74 07/25/16 22:47 97.9 77 20 165/82 94 07/25/16 21:00 74 30 94 2 07/25/16 20:27 100.9 07/25/16 20:05 78 34 154/91 94 Nasal Cannula 2 07/25/16 19:45 80 34 160/76 94 Nasal Cannula 2 07/25/16 19:44 94 Room Air 2 07/25/16 19:25 80 36 149/84 92 Nasal Cannula 2 07/25/16 19:22 92 Nasal Cannula 3.00 07/25/16 19:00 84 36 152/99 94 Nasal Cannula 2 07/25/16 19:00 84 36 92 Nasal Cannula 2 07/25/16 18:58 34 98 Nasal Cannula 2 07/25/16 18:40 103.4 85 34 102/69 98 07/25/16 07/26/16 19:00 07:00 Intake Total 3131 ml Output Total 550 ml Balance 2581 ml Intake Oral 20 ml IV Total 3111 ml Output Urine Total 550 ml # Bowel Movements 0 Exam CONSTITUTIONAL/GENERAL: This is frail lady, grimacing and appears uncomfortable , confused TUBES/LINES/DRAINS: NC, PIV SKIN: No jaundice, rashes, or lesions. Ecchymoses on upper extremities. No wounds seen anteriorly. HEAD: Atraumatic. Normocephalic. EYES: Pupils equal and round and reactive. Extraocular motions intact. No scleral icterus. No injection or drainage. Fundi not examined. ENT: Hearing grossly normal. Nose without bleeding or purulent drainage. Throat without visible erythema, exudates, masses, or lesions. NECK: Trachea midline. Supple, nontender. CARDIOVASCULAR: Regular rate and rhythm without murmurs, gallops, or rubs. RESPIRATORY/CHEST: Rhochi, coarse breath sound GASTROINTESTINAL: Abdomen soft, tender at epigastric and right upper quadrant. BS present. GENITOURINARY: Without palpable bladder distension. Merlos catheter in place. MUSCULOSKELETAL: Extremities without clubbing, cyanosis, or edema. LYMPHATICS: No palpable cervical or supraclavicular adenopathy. NEUROLOGICAL: confused. Moves all extremities. PSYCHIATRIC: confused, appears to be in pain. Diagnostic Tests Laboratory Laboratory Tests Test 07/25/16 07/25/16 07/25/16 07/25/16 18:45 18:50 19:44 21:11 White Blood Count 19.9 TH/MM3 (4.0-11.0) Red Blood Count 3.75 MIL/MM3 (4.00-5.30) Hemoglobin 11.9 GM/DL (11.6-15.3) Hematocrit 36.3 % (35.0-46.0) Mean Corpuscular Volume 96.6 FL (80.0-100.0) Mean Corpuscular Hemoglobin 31.7 PG (27.0-34.0) Mean Corpuscular Hemoglobin 32.8 % Concent (32.0-36.0) Red Cell Distribution Width 14.2 % (11.6-17.2) Platelet Count 126 TH/MM3 (150-450) Mean Platelet Volume 8.4 FL (7.0-11.0) Neutrophils (%) (Auto) 91.8 % (16.0-70.0) Lymphocytes (%) (Auto) 1.2 % (9.0-44.0) Monocytes (%) (Auto) 5.9 % (0.0-8.0) Eosinophils (%) (Auto) 0.1 % (0.0-4.0) Basophils (%) (Auto) 1.0 % (0.0-2.0) Neutrophils # (Auto) 18.3 TH/MM3 (1.8-7.7) Lymphocytes # (Auto) 0.2 TH/MM3 (1.0-4.8) Monocytes # (Auto) 1.2 TH/MM3 (0-0.9) Eosinophils # (Auto) 0.0 TH/MM3 (0-0.4) Basophils # (Auto) 0.2 TH/MM3 (0-0.2) CBC Comment DIFF FINAL Differential Comment Prothrombin Time 31.1 SEC (9.8-11.6) Prothromb Time International 2.7 RATIO Ratio Activated Partial 37.4 SEC Thromboplast Time (24.3-30.1) Sodium Level 133 MEQ/L (136-145) Potassium Level 4.8 MEQ/L (3.5-5.1) Chloride Level 94 MEQ/L (98-107) Carbon Dioxide Level 19.8 MEQ/L (21.0-32.0) Anion Gap 19 MEQ/L (5-15) Blood Urea Nitrogen 42 MG/DL (7-18) Creatinine 2.50 MG/DL (0.50-1.00) Estimat Glomerular Filtration 19 ML/MIN (>89) Rate Random Glucose 108 MG/DL (74-106) Lactic Acid Level 9.6 mmol/L 6.4 mmol/L (0.4-2.0) (0.4-2.0) Calcium Level 8.3 MG/DL (8.5-10.1) Total Bilirubin 2.2 MG/DL (0.2-1.0) Aspartate Amino Transf 42671 U/L (AST/SGOT) (15-37) Alanine Aminotransferase 1932 U/L (ALT/SGPT) (10-53) Alkaline Phosphatase 123 U/L (45-117) Total Creatine Kinase 1644 U/L (26-192) Creatine Kinase MB 16.3 NG/ML (0.5-3.6) Creatine Kinase MB % 1.0 % (0.0-4.0) Troponin I 2.97 NG/ML (0.02-0.05) B-Type Natriuretic Peptide GREATER THAN 5000 PG/ML (0-100) Total Protein 6.1 GM/DL (6.4-8.2) Albumin 3.5 GM/DL (3.4-5.0) Thyroid Stimulating Hormone 0.189 uIU/ML 3rd Gen (0.358-3.740) Blood Gas Puncture Site RT RADIAL Blood Gas Patient Temperature 98.6 Blood Gas HCO3 15 mmol/L (22-26) Blood Gas Base Excess -9.4 mmol/L (-2-2) Blood Gas Oxygen Saturation 77 % (90-100) Arterial Blood pH 7.37 (7.380-7.420) Arterial Blood Partial 27 mmHG (38-42) Pressure CO2 Arterial Blood Partial 52 mmHG Pressure O2 (61-120) Arterial Blood Oxygen Content 12.1 Vol % (12.0-20.0) Arterial Blood 1.7 % (0-4) Carboxyhemoglobin Arterial Blood Methemoglobin 1.2 % (0-2) Blood Gas Hemoglobin 11.2 G/DL (12.0-16.0) Blood Gas Inspired Oxygen 21 % Urine Color KIRILL (YELLW/STRAW) Urine Turbidity SLIGHT (CLEAR) Urine pH 5.5 (5.0-8.5) Urine Specific [place] 1.020 (1.002-1.035) Urine Protein 300 OR GREATER mg/dL (NEG-TRACE) Urine Glucose (UA) NEG mg/dL (NEG) Urine Ketones TRACE mg/dL (NEG) Urine Occult Blood LARGE (NEG) Urine Nitrite NEG (NEG) Urine Bilirubin MOD (NEG) Urine Leukocyte Esterase NEG (NEG) Urine RBC 0-3 /hpf (0-3) Urine WBC 3-5 /hpf (0-5) Urine Squamous Epithelial 6-8 /hpf (0-5) Cells Urine Amorphous Sediment MOD Urine Bacteria MANY /hpf (NONE) Microscopic Urinalysis Comment CATH-CULTURE IND Test 07/25/16 07/26/16 22:40 04:19 Nasal Screen MRSA (PCR) MRSA DETECTED (NOT DETECT) White Blood Count 23.4 TH/MM3 (4.0-11.0) Red Blood Count 3.83 MIL/MM3 (4.00-5.30) Hemoglobin 12.1 GM/DL (11.6-15.3) Hematocrit 37.6 % (35.0-46.0) Mean Corpuscular Volume 98.1 FL (80.0-100.0) Mean Corpuscular Hemoglobin 31.5 PG (27.0-34.0) Mean Corpuscular Hemoglobin 32.1 % Concent (32.0-36.0) Red Cell Distribution Width 14.7 % (11.6-17.2) Platelet Count 87 TH/MM3 (150-450) Mean Platelet Volume 9.2 FL (7.0-11.0) Neutrophils (%) (Auto) 94.2 % (16.0-70.0) Lymphocytes (%) (Auto) 1.5 % (9.0-44.0) Monocytes (%) (Auto) 4.1 % (0.0-8.0) Eosinophils (%) (Auto) 0.0 % (0.0-4.0) Basophils (%) (Auto) 0.2 % (0.0-2.0) Neutrophils # (Auto) 22.0 TH/MM3 (1.8-7.7) Lymphocytes # (Auto) 0.4 TH/MM3 (1.0-4.8) Monocytes # (Auto) 1.0 TH/MM3 (0-0.9) Eosinophils # (Auto) 0.0 TH/MM3 (0-0.4) Basophils # (Auto) 0.1 TH/MM3 (0-0.2) CBC Comment AUTO DIFF Differential Total Cells 100 Counted Neutrophils % (Manual) 90 % (16-70) Band Neutrophils % 5 % (0-6) Lymphocytes % 1 % (9-44) Monocytes % 3 % (0-8) Neutrophils # (Manual) 22.5 TH/MM3 (1.8-7.7) Metamyelocytes 1 % (0-1) Differential Comment FINAL DIFF MANUAL Platelet Estimate LOW (NORMAL) Platelet Morphology Comment NORMAL (NORMAL) Ovalocytes 1+ (NORMAL) Sodium Level 139 MEQ/L (136-145) Potassium Level 5.1 MEQ/L (3.5-5.1) Chloride Level 101 MEQ/L (98-107) Carbon Dioxide Level 14.8 MEQ/L (21.0-32.0) Anion Gap 23 MEQ/L (5-15) Blood Urea Nitrogen 42 MG/DL (7-18) Creatinine 2.72 MG/DL (0.50-1.00) Estimat Glomerular Filtration 18 ML/MIN (>89) Rate Random Glucose 74 MG/DL (74-106) Lactic Acid Level 10.3 mmol/L (0.4-2.0) Calcium Level 7.5 MG/DL (8.5-10.1) Total Bilirubin 3.1 MG/DL (0.2-1.0) Aspartate Amino Transf 9501 U/L (AST/SGOT) (15-37) Alanine Aminotransferase 1820 U/L (ALT/SGPT) (10-53) Alkaline Phosphatase 120 U/L (45-117) Total Protein 5.5 GM/DL (6.4-8.2) Albumin 3.3 GM/DL (3.4-5.0) Result Diagram: 07/26/16 0419 07/26/16 0419 Microbiology Microbiology Date/Time Procedure Status Source Growth 07/25/16 18:45 Aerobic Blood Culture Received Blood Peripheral Pending 07/25/16 18:45 Anaerobic Blood Culture Received Blood Peripheral Pending 07/25/16 19:10 Aerobic Blood Culture Received Blood Peripheral Pending 07/25/16 19:10 Anaerobic Blood Culture Received Blood Peripheral Pending 07/25/16 19:44 Urine Culture Received Urine Catheterized Urine Pending Imaging Last Impressions Abdomen/Pelvis CT 07/25/161943 Signed Impressions: Service Date/Time: Monday, July 25, 2016 20:28 - CONCLUSION: 1. Findings suspicious for acalculus cholecystitis. Radionuclide imaging is recommended for further evaluation if clinically indicated. Trenton Oneal MD Head CT 07/25/161837 Signed Impressions: Service Date/Time: Monday, July 25, 2016 20:25 - CONCLUSION: 1. No evidence of acute intracranial pathology. No masses are identified. 2. Sinus disease as above Trenton Oneal MD Chest X-Ray 07/25/161837 Signed Impressions: Service Date/Time: Monday, July 25, 2016 19:01 - CONCLUSION: 1. Cardiomegaly. No acute pulmonary disease. Trenton Oneal MD Patient/Family Conference Present at Family Conference: Elena Breen Family Conference Time (mins): 35 Family Conference Location: Bedside Issues Discussed: * Palliative care role, purpose, approach * Additional medical, psychosocial, and spiritual history * Patients general health, functional status, and cognitive changes in the months leading up to the current hospitalization * Patient/family understanding of the current medical problems * Patient/family understanding of prognosis * Patients goals of care as best understood from advance directives and/or conversations and/or values * Current medical treatment options and benefits/burdens of those options * Likely scenarios comparing ongoing aggressive care with a transition to comfort measures only * Questions answered to the best of my ability * Palliative care contact information provided Assessment and Plan Disease Oriented Problem List: (1) Sepsis (2) Acute renal failure (3) Acute cholecystitis (4) Elevated troponin (5) Cholecystitis Comment: would want IR drain placement if amenable (6) Scleroderma (7) Parkinson disease (8) COPD (chronic obstructive pulmonary disease) (9) CAD (coronary artery disease) (10) MS (myocardial infarction) Comment: may be the cause of elevated troponin. not a candidate for revascularization at the current time. Symptom Scale: Pertinent Non-Medical Issues Psychosocial: Spiritual: Legal: Ethical issues impacting care: Important Contacts Avery Breen [phone] Prognosis 61 year old female with PMH significant for Parkinson's, systemic scleroderma, coronary artery disease (MS, status post stents), high cholesterol, COPD, fibromyalgia, GERD, hypertension, hiatal hernia, sleep apnea. Pt has been very debilitated, now tachypneic, cholecystitis, sepsis, with elevated troponins ( not a cadidate for procedure). Overall prognosis is poor. Code Status: No Code Plan == pain mostly abdominal, chloescystitis. Pt has general debility, hx of falls. consider small dose of dilaudid 0.25 mg iv q 4 hour prn. == dyspnea- copd, == code: DNR/DNI no resuscitation. == capacity: is confused and does not have capacity to make medical decision. == health care decision maker. Avery Breen spouse per de statuets == goals: Course of hospitalization and goals of care reviewed with pt' spouse. Pt's spouse is aware that despite, antibiotics, and continue treatment, pt at risk of sudden decline and , have tremendous challenges to overcome. * He maintains and supports her DNR decision given, he endorse was her hx of sceleraderma and immune diseases. * He would want IR to place drain on chelecystitis if amenable.. * He is amenable to small doses of pain med to contorl pain. * After procedure should pt decline further or not rebound, open to transition to comfort. == Palliative Care will continue to follow as clinical condition evolves. Time Spent Total Floor Time (mins): 70 Face to Face Time (mins): 40 Thank you for the opportunity to participate in the care of Ms. Breen. Attestation To help prompt me to consider important information that might be impacting today's encounter and assessment, information from prior notes written by myself or my colleagues may have been "brought forward" into today's note. My signature on this note, however, is an attestation that I personally performed the exam, history, and/or decision-making noted today, and, unless otherwise indicated, the interactions with patient, family, and staff as well as the review of records all occurred today. I also attest that the listed assessment and stated plan reflect my best clinical judgment today based on the combination of historical information, prior notes, and today's exam/ interactions. When time spent is documented, it refers only to time spent today by the signer, or if indicated, combined time spent today by collaborating physician/nurse practitioner. Perico Kelley MD July 26, 2016 11:03
[2016-07-26] MEDS: PANTOPRAZOLE SODIUM 40 MG VIAL IV PUSH SCH (11:30)
--- NOTE | 2016-07-26 11:30 | PD.CONS ---
cc: Arsalan Snider MD HPI Service General Surgery Consult Requested By Dr. Tsai Reason for Consult Acalculous cholecystitis Primary Care Physician Bucky Amos M.D. History of Present Illness This is a 61-year-old female with a past medical history of Parkinson's disease , systemic scleroderma, CAD, VA with stent placement, PAD with stent placement and COPD. Approximate 3 days ago she was not feeling well and presented to an urgent care and diagnosed with urinary tract infection and given a prescription for by mouth antibiotics. Her , who is at the bedside, states that over the next 3 days her mental status declined and she developed a fever. He reports a fever of 101 orally at home. EMS was called and the patient was brought to [facility]. There the temperature was 104 rectally. She was transferred to the main hospital and admitted to the intensive medical unit. A CT abdomen and pelvis was obtained which shows acalculous cholecystitis. The patient has an elevated white blood cell count. The patient has elevated total bilirubin. The patient takes Plavix at home and her INR currently is 2.7. Cryoprecipitate and FFP have already been ordered. An Invasive Radiology consult has been requested for placement of a cholecystostomy tube. A General Surgery consultation has been requested for evaluation of acalculous cholecystitis. Review of Systems Constitutional: COMPLAINS OF: Fever (tmax 101 at home) Endocrine: COMPLAINS OF: Polydipsia, Polyuria Eyes: DENIES: Diplopia Ears, nose, mouth, throat: DENIES: Hearing loss Respiratory: DENIES: Cough, Snoring Cardiovascular: DENIES: Chest pain Gastrointestinal: COMPLAINS OF: Abdominal pain, DENIES: Nausea, Vomiting Genitourinary: COMPLAINS OF: Urinary frequency Musculoskeletal: DENIES: Joint pain Integumentary: DENIES: Abnormal pigmentation Hematologic/lymphatic: DENIES: Bruising Immunologic/allergic: DENIES: Eczema Neurologic: DENIES: Headache Psychiatric: COMPLAINS OF: Confusion, DENIES: Mood changes Past Family Social History Past Medical History CAD VA with stent placement PAD COPD Scleroderma Past Surgical History Bilateral stent placements in legs Appendectomy at the age of 11 is reported Reported Medications See chart but of note she does take Plavix at home Allergies: Coded Allergies: *MDRO Multi-Drug Resistant Organism (Verified Adverse Reaction, Unknown, ) MRSA PCR screen POSITIVE-07/25/16 Uncoded Allergies: ZOMAX (Allergy, Severe, SHOCK, 01/22/16) . Active Ordered Medications Current Medications Medications (Trade) Dose Ordered Sig/Jasmyn Route Start Time Stop Time Status Last Admin (NS Flush) 2 ml UNSCH PRN IV FLUSH 07/26/16 03:30 Sodium Chloride 2 ml 2 ml BID IV FLUSH 07/26/16 09:00 07/26/16 08:40 (Vancomycin Consult Pharmacy) 0 ml @ 0 mls/hr UNSCH OTHER 07/26/16 03:30 Miscellaneous Information 1 Q361D XX 07/26/16 03:30 07/26/16 03:30 (Chlorhexidine 2% Cloth) 3 pack Taper DAILY@04 TOP 07/26/16 04:00 07/22/17 03:59 07/26/16 04:00 Chlorhexidine Gluconate 3 pack 3 pack UNSCH PRN TOP 07/26/16 03:30 (Zosyn 2.25 Gm Premix) 50 ml @ 100 mls/hr Q8H IV 07/26/16 04:00 07/26/16 04:33 (Ecotrin Ec) 81 mg DAILY PO 07/26/16 09:00 07/26/16 08:39 (Sinemet 25-100 Mg) 1 tab Q8HR PO 07/26/16 06:00 07/26/16 06:45 (Vitamin B12) 1,000 mcg DAILY PO 07/26/16 09:00 07/26/16 08:39 (PROzac) 40 mg BID PO 07/26/16 09:00 07/26/16 08:39 (Ditropan) 5 mg Q12HR PO 07/26/16 09:00 07/26/16 08:39 (Effexor Xr) 150 mg DAILY PO 07/26/16 09:00 07/26/16 08:39 Patient Own Medication PT OWN MED: Capsu... DAILY PO 07/26/16 05:00 Hold (Requip) 4 mg HS PO 07/26/16 21:00 (Ambien) 10 mg HS PO 07/26/16 21:00 (PROzac) 10 mg BID PO 07/26/16 09:00 07/26/16 08:39 (Coreg) 3.125 mg Q12HR PO 07/26/16 09:00 07/26/16 08:39 Metoprolol Tartrate 5 mg 5 mg Q6H IV PUSH 07/26/16 10:00 07/26/16 10:32 (Sodium Bicarbonate 8.4% Inj/Sterile Water For Inj) 1,000 ml @ 150 mls/hr Q6H40M IV 07/26/16 11:00 07/26/16 10:52 (SoluCORTEF INJ) 50 mg DAILY IV PUSH 07/26/16 09:45 07/26/16 10:31 (Synthroid) 25 mcg DAILY@0600 PO 07/27/16 06:00 (Bactroban Nasal 2% Oint) 1 applic Taper BID EACH NARE 07/26/16 10:00 07/22/17 09:59 07/26/16 10:31 (Lyrica) 50 mg HS PO 07/26/16 21:00 (Protonix Inj) 40 mg Q24H IV PUSH 07/26/16 11:00 Family History Noncontributory Social History Positive tobacco use Denies alcohol use Denies illicit drug use Physical Exam Vital Signs Vital Signs Date Time Temp Pulse Resp B/P Pulse Ox O2 Delivery O2 Flow Rate FiO2 07/26/16 08:00 90 07/26/16 08:00 98.7 90 32 168/77 100 07/26/16 07:10 94 Nasal Cannula 4.00 07/26/16 06:28 96 Nasal Cannula 4.00 07/26/16 06:00 80 07/26/16 04:00 79 07/26/16 04:00 98.4 79 30 161/72 95 07/26/16 02:00 84 07/26/16 00:00 98.2 75 30 154/81 94 07/26/16 00:00 75 07/25/16 23:54 74 07/25/16 22:47 97.9 77 20 165/82 94 07/25/16 21:00 74 30 94 2 07/25/16 20:27 100.9 07/25/16 20:05 78 34 154/91 94 Nasal Cannula 2 07/25/16 19:45 80 34 160/76 94 Nasal Cannula 2 07/25/16 19:44 94 Room Air 2 07/25/16 19:25 80 36 149/84 92 Nasal Cannula 2 07/25/16 19:22 92 Nasal Cannula 3.00 07/25/16 19:00 84 36 152/99 94 Nasal Cannula 2 07/25/16 19:00 84 36 92 Nasal Cannula 2 07/25/16 18:58 34 98 Nasal Cannula 2 07/25/16 18:40 103.4 85 34 102/69 98 Physical Exam GENERAL: 61 year old critically ill female resting in bed; moaning SKIN: Warm and dry. HEAD: Atraumatic. Normocephalic. EYES: Pupils equal and round. No scleral icterus. No injection or drainage. ENT: No nasal bleeding or discharge. Mucous membranes pink and moist. NECK: Trachea midline. CARDIOVASCULAR: Regular rate and rhythm. RESPIRATORY: No accessory muscle use. Clear to auscultation. Breath sounds equal bilaterally. GASTROINTESTINAL: Abdomen soft, grimaces with pain to palpation in RUQ; moderate pain in all other quadrants. Healed scar inferior to umbilicus. MUSCULOSKELETAL: Extremities without clubbing, cyanosis, or edema. No obvious deformities. NEUROLOGICAL: Awake; using only one work answers to all questions; moaning. PSYCHIATRIC: Unable to exam. Laboratory Laboratory Tests Test 07/25/16 07/25/16 07/25/16 07/25/16 18:45 18:50 19:44 21:11 White Blood Count 19.9 Red Blood Count 3.75 Hemoglobin 11.9 Hematocrit 36.3 Mean Corpuscular Volume 96.6 Mean Corpuscular Hemoglobin 31.7 Mean Corpuscular Hemoglobin 32.8 Concent Red Cell Distribution Width 14.2 Platelet Count 126 Mean Platelet Volume 8.4 Neutrophils (%) (Auto) 91.8 Lymphocytes (%) (Auto) 1.2 Monocytes (%) (Auto) 5.9 Eosinophils (%) (Auto) 0.1 Basophils (%) (Auto) 1.0 Neutrophils # (Auto) 18.3 Lymphocytes # (Auto) 0.2 Monocytes # (Auto) 1.2 Eosinophils # (Auto) 0.0 Basophils # (Auto) 0.2 CBC Comment DIFF FINAL Differential Comment Prothrombin Time 31.1 Prothromb Time International 2.7 Ratio Activated Partial 37.4 Thromboplast Time Sodium Level 133 Potassium Level 4.8 Chloride Level 94 Carbon Dioxide Level 19.8 Anion Gap 19 Blood Urea Nitrogen 42 Creatinine 2.50 Estimat Glomerular Filtration 19 Rate Random Glucose 108 Lactic Acid Level 9.6 6.4 Calcium Level 8.3 Total Bilirubin 2.2 Aspartate Amino Transf 76422 (AST/SGOT) Alanine Aminotransferase 1932 (ALT/SGPT) Alkaline Phosphatase 123 Total Creatine Kinase 1644 Creatine Kinase MB 16.3 Creatine Kinase MB % 1.0 Troponin I 2.97 B-Type Natriuretic Peptide GREATER THAN 5000 Total Protein 6.1 Albumin 3.5 Thyroid Stimulating Hormone 0.189 3rd Gen Blood Gas Puncture Site RT RADIAL Blood Gas Patient Temperature 98.6 Blood Gas HCO3 15 Blood Gas Base Excess -9.4 Blood Gas Oxygen Saturation 77 Arterial Blood pH 7.37 Arterial Blood Partial 27 Pressure CO2 Arterial Blood Partial 52 Pressure O2 Arterial Blood Oxygen Content 12.1 Arterial Blood 1.7 Carboxyhemoglobin Arterial Blood Methemoglobin 1.2 Blood Gas Hemoglobin 11.2 Blood Gas Inspired Oxygen 21 Urine Color KIRILL Urine Turbidity SLIGHT Urine pH 5.5 Urine Specific [place] 1.020 Urine Protein 300 OR GREATER Urine Glucose (UA) NEG Urine Ketones TRACE Urine Occult Blood LARGE Urine Nitrite NEG Urine Bilirubin MOD Urine Leukocyte Esterase NEG Urine RBC 0-3 Urine WBC 3-5 Urine Squamous Epithelial 6-8 Cells Urine Amorphous Sediment MOD Urine Bacteria MANY Microscopic Urinalysis Comment CATH-CULTURE IND Test 07/25/16 07/26/16 22:40 04:19 Nasal Screen MRSA (PCR) MRSA DETECTED White Blood Count 23.4 Red Blood Count 3.83 Hemoglobin 12.1 Hematocrit 37.6 Mean Corpuscular Volume 98.1 Mean Corpuscular Hemoglobin 31.5 Mean Corpuscular Hemoglobin 32.1 Concent Red Cell Distribution Width 14.7 Platelet Count 87 Mean Platelet Volume 9.2 Neutrophils (%) (Auto) 94.2 Lymphocytes (%) (Auto) 1.5 Monocytes (%) (Auto) 4.1 Eosinophils (%) (Auto) 0.0 Basophils (%) (Auto) 0.2 Neutrophils # (Auto) 22.0 Lymphocytes # (Auto) 0.4 Monocytes # (Auto) 1.0 Eosinophils # (Auto) 0.0 Basophils # (Auto) 0.1 CBC Comment AUTO DIFF Differential Total Cells 100 Counted Neutrophils % (Manual) 90 Band Neutrophils % 5 Lymphocytes % 1 Monocytes % 3 Neutrophils # (Manual) 22.5 Metamyelocytes 1 Differential Comment FINAL DIFF MANUAL Platelet Estimate LOW Platelet Morphology Comment NORMAL Ovalocytes 1+ Sodium Level 139 Potassium Level 5.1 Chloride Level 101 Carbon Dioxide Level 14.8 Anion Gap 23 Blood Urea Nitrogen 42 Creatinine 2.72 Estimat Glomerular Filtration 18 Rate Random Glucose 74 Lactic Acid Level 10.3 Calcium Level 7.5 Total Bilirubin 3.1 Aspartate Amino Transf 9501 (AST/SGOT) Alanine Aminotransferase 1820 (ALT/SGPT) Alkaline Phosphatase 120 Total Protein 5.5 Albumin 3.3 Triglycerides Level 125 Cholesterol Level 76 LDL Cholesterol 26 HDL Cholesterol 24.6 Cholesterol/HDL Ratio 3.08 Date/Time Procedure Status Source Growth 07/25/16 19:44 Urine Culture Received Urine Catheterized Urine Pending 07/25/16 19:10 Aerobic Blood Culture - Preliminary Resulted Blood Peripheral NO GROWTH IN 1 DAY 07/25/16 19:10 Anaerobic Blood Culture - Preliminary Resulted Blood Peripheral NO GROWTH IN 1 DAY Result Diagram: 07/26/16 0419 07/26/16 0419 Imaging Last 48 hours Impressions Abdomen/Pelvis CT 07/25/161943 Signed Impressions: Service Date/Time: Monday, July 25, 2016 20:28 - CONCLUSION: 1. Findings suspicious for acalculus cholecystitis. Radionuclide imaging is recommended for further evaluation if clinically indicated. Trenton Oneal MD Head CT 07/25/161837 Signed Impressions: Service Date/Time: Monday, July 25, 2016 20:25 - CONCLUSION: 1. No evidence of acute intracranial pathology. No masses are identified. 2. Sinus disease as above Trenton Oneal MD Chest X-Ray 07/25/161837 Signed Impressions: Service Date/Time: Monday, July 25, 2016 19:01 - CONCLUSION: 1. Cardiomegaly. No acute pulmonary disease. Trenton Oneal MD Assessment and Plan Assessment and Plan 61-year-old female with sepsis; positive UTI and acalculous cholecystitis -Remain nothing by mouth -Continued Zosyn -IR consult for cholecystostomy tube placement -Hold Plavix for now; FFP and cryoprecipitate ordered -Recheck INR -Discussed with at the bedside plan of care -Discussed with Dr. Snider -Discussed with Dr. Ruiz -Thank you for this consult; we will follow I certify and attest that I personally saw and examined this patient with Ms. Vanessa. She documented our visit in the EMR. Patient is not a surgical candidate. Recommend IR for Ruthie tube. ARSALAN SNIDER MD FACS Discussed Condition With Dr. Nida Ruiz Mr. Jamshid MendezAnaliliaP July 26, 2016 11:30 Arsalan Snider MD Aug 09, 2016 09:32
--- NOTE | 2016-07-26 12:13 | EC ---
Study Study Date:07/26/2016 STUDY CONCLUSIONS SUMMARY - Left ventricle: The cavity size was normal. Wall thickness was normal. Systolic function was severely reduced. The estimated ejection fraction was in the range of 20% to 25%. Diffuse hypokinesis. - Aortic valve: Moderate to severe regurgitation. - Mitral valve: Mild regurgitation. - Tricuspid valve: Mild regurgitation. - Pulmonary arteries: PA peak pressure: 58mm Hg (S). If LV function is below 40, please consider prescribing an ACEI or ARB or document rationale for non-use. PROCEDURE DATA STUDY STATUS: Elective. Procedure: Transthoracic echocardiography. Image quality was good. Scanning was performed from the parasternal, apical, and subcostal acoustic windows. Study completion: The patient tolerated the procedure well. Transthoracic echocardiography. M-mode, complete 2D, complete spectral Doppler, and color Doppler. Patient status: Inpatient. CARDIAC ANATOMY LEFT VENTRICLE: The cavity size was normal. Wall thickness was normal. Systolic function was severely reduced. The estimated ejection fraction was in the range of 20% to 25%. Diffuse hypokinesis. AORTIC VALVE: Trileaflet; mildly thickened leaflets. Doppler: Transvalvular velocity was within the normal range. There was no stenosis. Moderate to severe regurgitation. AORTA: Aortic root: The aortic root was normal in size. MITRAL VALVE: Structurally normal valve. Doppler: Transvalvular velocity was within the normal range. There was no evidence for stenosis. Mild regurgitation. LEFT ATRIUM: The atrium was normal in size. RIGHT VENTRICLE: The cavity size was normal. Wall thickness was normal. PULMONIC VALVE: Doppler: Transvalvular velocity was within the normal range. There was no evidence for stenosis. Trace to mild regurgitation. TRICUSPID VALVE: Structurally normal valve. Doppler: Transvalvular velocity was within the normal range. Mild regurgitation. PULMONARY ARTERY: The main pulmonary artery was normal-sized. Systolic pressure was within the normal range. RIGHT ATRIUM: The atrium was normal in size. PERICARDIUM: There was no pericardial effusion. SYSTEMIC VEINS: Inferior vena cava: The vessel was normal in size. BASIC MEASUREMENTS ADULT Normal Left ventricle LV internal dimension, ED, chordal level, 48.1 mm 43-52 PLAX LV internal dimension, ES, chordal level, *43.9 mm 23-38 PLAX Fractional shortening, chordal level, PLAX *9 % >29 LV posterior wall thickness, ED 9.13 mm IVS/LVPW ratio, ED *1.36 <1.3 Ventricular septum Septal thickness, ED 12.4 mm Aortic valve Leaflet separation 20 mm 15-26 Right ventricle RV internal dimension, ED, PLAX 30.3 mm 19-38 BASIC MEASUREMENTS ADULT Normal Aortic valve Leaflet separation 20 mm 15-26 Aorta Root diameter, ED 26 mm 20-37 Left atrium Anterior-posterior dimension, ES 35 mm 19-40 LA/aortic root ratio 1.35 DOPPLER MEASUREMENTS ADULT Normal Main pulmonary artery Pressure, S *58 mm Hg =30 Aortic valve Regurgitant velocity, ED 519 cm/s Regurgitant deceleration 5650 cm/s^2 Regurgitant pressure half-time 269 ms Regurgitant gradient, ED 108 mm Hg Mitral valve Peak E-wave velocity 48.4 cm/s Peak A-wave velocity 31.1 cm/s Peak E/A ratio 1.6 Tricuspid valve Regurgitant peak velocity 347 cm/s Peak RV-RA gradient, S 48 mm Hg Maximal regurgitant velocity 347 cm/s Systemic veins Estimated CVP 10 mm Hg Right ventricle RV pressure, S *58 mm Hg <30 LEGEND: Mean values are shown as u=mean value. Asterisk (*) carreon values outside specified normal range. Prepared and signed by Renato Guzmán [id number]
[2016-07-26 12:26] LABS: BICARBONATE 18.2 MEQ/L (21.0-32.0); MAGNESIUM 2.1 MG/DL (1.5-2.5); POTASSIUM 4.9 MEQ/L (3.5-5.1)
[2016-07-26 12:35] LABS: INTERNATIONAL NORMALIZED RATIO 2.5 RATIO; PROTHROMBIN TIME - PATIENT 29.1 SEC (9.8-11.6)
[2016-07-26] MEDS: FUROSEMIDE 20 MG/2 ML VIAL IV PUSH SCH ×2 (13:44→15:59)
--- NOTE | 2016-07-26 14:22 | EKG ---
Date Performed: 07/25/2016 Time Performed: 18:42:48 PTAGE: 61 years EKG: Sinus rhythm Left anterior fascicular block rSr'(V1) - probable normal variant ST junctional depression is nonspe cific Poor R wave progression more prominent than prior tracing, cannot rule out inoccurent injury Lonnie rderline ECG PREVIOUS TRACING : 05/02/2011 10.52 DOCTOR: Al Hyman Interpretating Date/Time 07/26/2016 14:20:20
--- NOTE | 2016-07-26 17:15 | PD.RAD ---
Post Procedure Progress Note Pre Procedure Diagnosis: (1) Sepsis (2) Cholecystitis Post Procedure Diagnosis: (1) Sepsis (2) Cholecystitis Procedure Date: July 26, 2016 Supervising Radiologist: Lyndon Jacobsen Proceduralist/Assist: Belen Hugo, RT(R), Catherine Wallace RT(R)() Anesthesia: Local Plan of Activity Patient to Unit: Critical Care Patient Condition: Poor See PACS Report for procedural detail/treatment Drainage Procedure Procedure 1 Imaging Guidance: Fluoroscopy, Ultrasound Side: Right Procedure Type: Cholecystostomy Procedure: Placement Tristanian: 7 Drainage: Zephyr drainage Fluid Description: Other (Black, thick) Lyndon Jacobsen MD July 26, 2016 17:15
--- NOTE | 2016-07-26 17:39 | RADRPT ---
EXAM DATE/TIME: 07/26/2016 16:54 [facility] COMPARISON: No previous studies available for comparison. INDICATIONS : Patient with a history of cholecystitis. MEDICAL HISTORY : CAD IA with stent placement PAD COPD Scleroderma SURGICAL HISTORY : Bilateral stent placements in legs Appendectomy ENCOUNTER: Initial ACUITY: 1 day PAIN SCORE: FLUORO TIME: 0.7 IMAGE SERIES: 1 DEVICE(S): 1.) 7 Turkmen Skater catheter PROCEDURE : 1. Ultrasound guided puncture of the gallbladder. 2. Percutaneous cholangiogram. 3. Percutaneous cholecystostomy tube placement. 4. Conscious sedation with continuous EKG and oximetry monitoring. The risks, benefits and alternatives to the procedure were explained and verbal and written consent w as obtained. The site was prepped in sterile fashion. Full sterile technique was used, including ca p, mask, sterile gloves and gown and a large sterile sheet. Hand hygiene and 2% chlorhexidine and/or betadine/alcohol prep was utilized per protocol for cutaneous antisepsis. The skin and subcutaneous tissues were infiltrated with local anesthetic solution. Sonographic images showed a very abnormal appearance of the gallbladder with marked gallbladder wall thickening. A course through the liver parenchyma into the gallbladder lumen was selected sonographic ally. The gallbladder was punctured with a micropuncture set and a 4 Turkmen dilator was placed. Due t o the patient's extreme sepsis, contrast was not injected. There was return of very thick black bile, however. A 0.035 guidewire was placed within the gallbladder lumen and dilatation was performed to accept the prescribed catheter. Very thick, tenacious bile was aspirated from the tube. Small right and flushes were performed to int ermittent clear the tube and aspirate more thick bile and debris. Catheter was then secured with a 2- 0 silk suture and connected to gravity drainage. Conscious sedation was performed with the prescribed dosages and duration as above in the presence of an independent trained radiology nurse to assist in the monitoring of the patient. EKG and oximetry remained stable throughout the procedure. The patient tolerated the procedure well and there were n o complications. The patient was sent to post anesthesia recovery in stable condition. CONCLUSION: 1. Uncomplicated percutaneous cholecystostomy as above. 2. Will institute daily flushing of the catheter over the next 3 days to ensure patency of the draina ge. Lyndon Jacobsen MD on July 26, 2016 at 17:35 Board Certified Radiologist. This report was verified electronically.
[2016-07-26] MEDS ORDERED: MORPHINE SULFATE 4 MG/ML INJ IV PUSH PRN (18:00)
[2016-07-26] MEDS: MORPHINE SULFATE 4 MG/ML INJ IV PUSH PRN (18:13)
[2016-07-26 20:17] LABS: APTT (PATIENT) 31.5 SEC (24.3-30.1); INTERNATIONAL NORMALIZED RATIO 1.6 RATIO; PROTHROMBIN TIME - PATIENT 18.1 SEC (9.8-11.6)
[2016-07-26] MEDS: HYDROmorphone HCL PF 1 MG/ML VIAL IV PUSH PRN (20:56)
[2016-07-26] MEDS: PREGABALIN 25 MG CAP PO SCH (20:58)
[2016-07-26] MEDS ORDERED: PREGABALIN 75 MG CAP PO SCH (21:00)
[2016-07-26] MEDS ORDERED: ZOLPIDEM TARTRATE 10 MG TAB PO SCH (21:00)
[2016-07-27] VITALS (15 sets, daily range): BP systolic 131–162; BP diastolic 60–106; PULSE 68–86; RESP 14–28; TEMP 97.7–99; O2SAT 92–100
[2016-07-27] MEDS: SODIUM BICARBONATE 8.4% INJ 150 MEQ in WATER STERILE FOR INJ 850 ML IV SCH ×2 (00:20→06:02)
[2016-07-27] MEDS: HYDROmorphone HCL PF 1 MG/ML VIAL IV PUSH PRN ×2 (01:21→05:21)
[2016-07-27] MEDS: PIPERACIL-TAZO 2.25 GM PREMIX 50 ML IV SCH ×3 (01:21→12:33)
[2016-07-27] MEDS: METOPROLOL TARTRATE 5 MG/5 ML VIAL IV PUSH SCH ×5 (04:00→22:00)
[2016-07-27] MEDS: RESP: ALBUTEROL 2.5 MG/IPRATROPIUM 0.5 MG NEB (SCH) NEB ×4 (04:07→20:57)
[2016-07-27] MEDS: CARBIDOPA/LEVODOPA 25 MG/100 MG TAB PO SCH ×3 (05:33→22:00)
[2016-07-27] MEDS: SODIUM CHLORIDE 0.9% 10 ML VIAL IRRIGATION SCH (05:33)
[2016-07-27] MEDS: LEVOTHYROXINE SODIUM 25 MCG TAB PO SCH (05:34)
[2016-07-27 06:16] LABS: AUTOMATED NEUTROPHIL # 12.4 TH/MM3 (1.8-7.7); BASOPHIL % 0.1 % (0.0-2.0); EOSINOPHIL # 0.1 TH/MM3 (0-0.4); EOSINOPHIL % 0.7 % (0.0-4.0); HEMATOCRIT 23.1 % (35.0-46.0); LYMPH % 3.6 % (9.0-44.0); LYMPHOCYTE # 0.5 TH/MM3 (1.0-4.8); MEAN CELL VOLUME 96.5 FL (80.0-100.0); MEAN CORPUSCULAR HGB CONC 32.2 % (32.0-36.0); MONO % 3.2 % (0.0-8.0); NEUT % 92.4 % (16.0-70.0); PLATELET COUNT 55 TH/MM3 (150-450); RED CELL DISTRIBUTION WIDTH 14.5 % (11.6-17.2); WHITE BLOOD COUNT 13.4 TH/MM3 (4.0-11.0)
[2016-07-27 06:18] LABS: HEMO FLAGS AUTO DIFF
[2016-07-27 06:53] LABS: APTT (PATIENT) 33.1 SEC (24.3-30.1)
--- NOTE | 2016-07-27 06:54 | HHI.CCPN ---
Subjective Remarks/Hospital Course 61-year-old female was brought in by EMS for fever and lethargy. Patient was seen at local urgent care center 3 days ago with diagnosis of UTI. She was given prescription for Cipro. EMS was called today because patient has increasing lethargy and fever. Per patient 's she started hallucinating about 6 days ago. She was becoming progressively more lethargic and hallucinating to the point of patient could not talk much today. Patient has history of CAD, [place], status post stent placement, history of PAD status post stent placement on the lower extremity, COPD, and she is an active smoker. She is also history of Parkinson's disease, hypertension, hyperlipidemia, systemic scleroderma, fibromyalgia. Patient's health program manager Dr. Wilson. Patient's family physician Dr. Amos. Patient has a signed DNR. 07/26: Patient is unable to speak more than 1 word at a time due to tachypnea. Using accessory muscles. Patient is a full DNR according to at bedside. Remains hypertensive. Subjective 07/27: Tmax 101.7. Currently afebrile. Status post percutaneous cholangiogram with cholecystostomy tube placed. -30 cc. Remains hemodynamically stable. A.m. laboratories pending. Minimal urine output. Objective Vital Signs Date Time Temp Pulse Resp B/P Pulse Ox O2 Delivery O2 Flow Rate FiO2 07/27/16 06:00 74 07/27/16 04:00 97.9 14 140/63 100 07/26/16 21:33 Nasal Cannula 3.00 Intake and Output 07/26/16 07/26/16 07/27/16 08:00 16:00 00:00 Intake Total 831 ml 1313 ml 325 ml Output Total 150 ml 50 ml 125 ml Balance 681 ml 1263 ml 200 ml Result Diagram: 07/27/16 0552 07/26/16 1142 Other Results Microbiology Date/Time Procedure Status Source Growth 07/25/16 19:44 Urine Culture - Preliminary Resulted Urine Catheterized Urine NO GROWTH IN 24 HOURS. 07/25/16 19:10 Aerobic Blood Culture - Preliminary Resulted Blood Peripheral NO GROWTH IN 1 DAY 07/25/16 19:10 Anaerobic Blood Culture - Preliminary Resulted Blood Peripheral NO GROWTH IN 1 DAY Imaging Last Impressions Percutaneous Cholangiogram 07/26/16 0000 Signed Impressions: Service Date/Time: July 16:54 - CONCLUSION: 1. Uncomplicated percutaneous cholecystostomy as above. 2. Will institute daily flushing of the catheter over the next 3 days to ensure patency of the drainage. Lyndon Jacobsen MD Abdomen/Pelvis CT 07/25/161943 Signed Impressions: Service Date/Time: Monday, July 25, 2016 20:28 - CONCLUSION: 1. Findings suspicious for acalculus cholecystitis. Radionuclide imaging is recommended for further evaluation if clinically indicated. Trenton Oneal MD Head CT 07/25/161837 Signed Impressions: Service Date/Time: Monday, July 25, 2016 20:25 - CONCLUSION: 1. No evidence of acute intracranial pathology. No masses are identified. 2. Sinus disease as above Trenton Oneal MD Chest X-Ray 07/25/161837 Signed Impressions: Service Date/Time: Monday, July 25, 2016 19:01 - CONCLUSION: 1. Cardiomegaly. No acute pulmonary disease. Trenton Oneal MD Objective Remarks GENERAL: 61-year-old female, critically ill currently resting in bed in no respiratory distress SKIN: Warm and moist. HEAD: Prior bruising to right forehead. Normocephalic. EYES: Pupils equal and round about 3 mm bilaterally and reactive. No scleral icterus. No injection or drainage. ENT: No nasal bleeding or discharge. Mucous membranes pink and moist. NECK: Trachea midline. No JVD. CARDIOVASCULAR: Tachycardic, RR. S1, S2 no S4. Question S3. Without murmur RESPIRATORY: Positive accessory muscle use. Coarse crackles appreciated bilaterally. GASTROINTESTINAL: Abdomen soft tender palpation epigastric/right upper quadrant. Cholecystostomy tube currently patent -30 cc dark green bile. Hypoactive bowel sounds are appreciated MUSCULOSKELETAL: Extremities trace lower extremity pitting edema. No obvious deformities. NEUROLOGICAL: Awake and alert. No obvious cranial nerve deficits. Follows commands. Moves all 4 extremities spontaneously. A/P Assessment and Plan Neuro/Psych: History of CVA Depression Parkinson's disease - times [address] Simons Fibromyalgia Acute toxic metabolic encephalopathy CT head 07/25 revealed right frontal sinus disease/ethmoid air cell disease. No acute intracranial CVA or bleed identified. Patient is currently on Sinemet 25/100 one tablet 3 times a day for Parkinson's disease. Continue Patient is on Requip 4 mg by mouth daily. Continue Patient is on Lyrica 225 mg a night. Decreased to 50 mg at night Prozac 50 mg twice daily and Effexor XR 150 mg daily for depression. Continue Morphine 2-4 mg every 3 hours when necessary for pain management written by me with John Paul for breakthrough per overnight child life therapist Patient is on Provigil 100 mg by mouth daily She is on Ambien 10 mg at night for insomnia. CV: Non-STEMI - elevated troponin 2.87 Hypertension Dyslipidemia Coronary disease status post single stent Peripheral arterial disease status post 2 left/ 1 right lower stent placement Lactic acidosis Acute systolic heart failure Cardiology/Dr. Wilson consulted Status post 3 L normal saline overnight. On 07/25 Currently on sterile water with 3 ampules of bicarbonate 150 cc an hour On Lopressor 5 IV every 6 hours for non-STEMI. Noted written for Coreg 3.125 ideal versus spitting out medications. On Lopressor 50 mill grams by mouth twice a day at home. Also on clonidine 0.1 mg by mouth twice a day at home. Continue Plavix 75 mg daily and aspirin 81 mg by mouth daily with history of stent/non-STEMI Serial lactates until cleared currently 7.0 07/26 echocardiogram revealed EF 20-25%. Moderate to severe AR. Mild MR and TR. PPP 50 mmHg Repeat troponin pending this a.m. hOlding spironolactone 25 mg by mouth twice a day/home medication Holding simvastatin 20 mill grams by mouth daily light of elevated liver function tests Resp: COPD Sleep apnea does not use CPAP Nasal cannula to maintain saturations greater than or equal to 92%. Currently on 3 L Incentive spirometry while awake Chest x-ray 07/25 revealed no acute cardio pulmonary findings Bronchodilator therapy every 6 hours and as needed GI: Elevated transaminases/shock liver Acalculous cholecystitis Hiatal hernia Gastroesophageal reflux disease Irritable bowel syndrome Status post cholecystostomy 2 by IR/Delmar 07/26 Dr. Joao Alva has been consulted for general surgery CT abdomen/pelvis revealed right pleural effusion, pericholecystic fluid on the gallbladder without stone. Right-sided nephrolithiasis Patient is on Prilosec for by mouth daily for dyspepsia. Currently in IV Protonix Holding Linzess 145 mg by mouth daily : Merlos has been placed for accurate I's and O's in a critically ill patient Endo/rheum: Hypothyroidism Chronic steroid use Systemic scleroderma TSH 0.87. Decrease Levoxyl 25 g by mouth daily. On 50 by mouth daily at home Sliding scale insulin to maintain euglycemia Prednisone 5 mg daily converted hydrocortisone 50 mg IV daily Renal: Acute kidney injury Urinary incontinence Right nephrolithiasis without hydronephrosis No hydronephrosis and CT abdomen/pelvis Check urine electrolytes and eosinophils Monitor urine output Accurate I's and O's On Ditropan 5 mg by mouth twice a day at home. Heme: DIC Leukocytosis Normocytic anemia Thrombocytopenia INR 1.6 after 3 units FFP. Fibrinogen 284 after 2 bags cryo- Transfuse FFP and cryoprecipitate prior to cholecystectomy to placement Source control yesterday. Will transfuse 1 unit PRBC today ID: Recent urinary tract infection Day #3 Zosyn/vancomycin Pertinent cultures Blood cultures 2 07/25 no growth FEN: Replace electrolytes as clinically indicated MSK: PT/OT evaluate and treat Access - Utilize peripheral IV. Central line if indicated Prophylaxis - GI - Protonix - DVT - SCD/holding pharmacological prophylaxis with elevated INR/PTT Critical Care: The total critical care time was 35 minutes. Time to perform other separately billable procedures was not included in the critical care time. Status with at bedside. Patient is a full DNR. Patient wouldn't want hemodialysis. We'll attempt optimal medical management. Patient is critically ill with multiple organ failure. Appreciate palliative care assistance for goals of care. We will continue to be aggressive in the interim. Giancarlo Ruiz MD July 27, 2016 06:54
[2016-07-27 06:56] LABS: MAGNESIUM 2.1 MG/DL (1.5-2.5); POTASSIUM 4.4 MEQ/L (3.5-5.1)
[2016-07-27] MEDS ORDERED: MELATONIN 5 MG TAB PO PRN (07:00)
[2016-07-27 07:01] LABS: CALCIUM-PROTEIN CORRECTED 7.3 MG/DL (8.5-10.1)
[2016-07-27 07:15] LABS: PROTHROMBIN TIME - PATIENT 22.9 SEC (9.8-11.6)
[2016-07-27 07:21] LABS: CKMB 15.9 NG/ML (0.5-3.6)
[2016-07-27 07:26] LABS: PLATELET ESTIMATE SMEAR LOW (NORMAL); PLATELET MORPHOLOGY NORMAL (NORMAL); POLYCHROMASIA 2.3 % (0.0-1.9); SCAN/DIFF AUTO DIFF CONFIRMED; STOMATOCYTES 1+ (NORMAL)
--- NOTE | 2016-07-27 07:34 | PD.CARD.PN ---
Subjective Subjective Remarks Pt without complaints Objective Medications Current Medications Medications (Trade) Dose Ordered Sig/Jasmyn Route Start Time Stop Time Status Last Admin (NS Flush) 2 ml UNSCH PRN IV FLUSH 07/26/16 03:30 Sodium Chloride 2 ml 2 ml BID IV FLUSH 07/26/16 09:00 07/26/16 20:57 (Vancomycin Consult Pharmacy) 0 ml @ 0 mls/hr UNSCH OTHER 07/26/16 03:30 Miscellaneous Information 1 [id number] XX 07/26/16 03:30 07/26/16 03:30 (Chlorhexidine 2% Cloth) 3 pack Taper DAILY@04 TOP 07/26/16 04:00 07/22/17 03:59 07/26/16 20:59 Chlorhexidine Gluconate 3 pack 3 pack UNSCH PRN TOP 07/26/16 03:30 (Zosyn 2.25 Gm Premix) 50 ml @ 100 mls/hr Q8H IV 07/26/16 04:00 07/27/16 05:32 (Ecotrin Ec) 81 mg DAILY PO 07/26/16 09:00 07/26/16 08:39 (Sinemet 25-100 Mg) 1 tab Q8HR PO 07/26/16 06:00 07/26/16 06:45 (Vitamin B12) 1,000 mcg DAILY PO 07/26/16 09:00 07/26/16 08:39 (PROzac) 40 mg BID PO 07/26/16 09:00 07/26/16 08:39 (Ditropan) 5 mg Q12HR PO 07/26/16 09:00 07/26/16 08:39 (Effexor Xr) 150 mg DAILY PO 07/26/16 09:00 07/26/16 08:39 Patient Own Medication PT OWN MED: Capsu... DAILY PO 07/26/16 05:00 Hold (Requip) 4 mg HS PO 07/26/16 21:00 (PROzac) 10 mg BID PO 07/26/16 09:00 07/26/16 08:39 (Coreg) 3.125 mg Q12HR PO 07/26/16 09:00 07/26/16 08:39 Metoprolol Tartrate 5 mg 5 mg Q6H IV PUSH 07/26/16 10:00 07/26/16 15:35 (Sodium Bicarbonate 8.4% Inj/Sterile Water For Inj) 1,000 ml @ 150 mls/hr Q6H40M IV 07/26/16 11:00 07/27/16 06:02 (SoluCORTEF INJ) 50 mg DAILY IV PUSH 07/26/16 09:45 07/26/16 10:31 (Synthroid) 25 mcg DAILY@0600 PO 07/27/16 06:00 (Bactroban Nasal 2% Oint) 1 applic Taper BID EACH NARE 07/26/16 10:00 07/22/17 09:59 07/26/16 20:57 (Lyrica) 50 mg HS PO 07/26/16 21:00 (Protonix Inj) 40 mg Q24H IV PUSH 07/26/16 11:00 07/26/16 11:30 (NS Inj) 10 ml DAILY@0600 IRRIGATION 07/27/16 06:00 07/30/16 05:59 07/27/16 05:33 (Morphine Inj) 2 mg Q3H PRN IV PUSH 07/26/16 18:00 (Morphine Inj) 4 mg Q3H PRN IV PUSH 07/26/16 18:00 07/26/16 18:13 (Melatonin) 5 mg HS PRN PO 07/27/16 07:00 Vital Signs / I&O Vital Signs Date Time Temp Pulse Resp B/P Pulse Ox O2 Delivery O2 Flow Rate FiO2 07/27/16 06:00 74 07/27/16 04:00 97.9 68 14 140/63 100 07/27/16 04:00 68 07/27/16 02:00 70 07/27/16 00:00 73 07/27/16 00:00 98.1 73 19 131/62 99 07/26/16 22:00 80 07/26/16 21:33 98 Nasal Cannula 3.00 07/26/16 20:00 83 07/26/16 20:00 101.7 83 32 133/55 100 07/26/16 18:00 85 07/26/16 16:00 98.0 80 34 112/75 98 07/26/16 16:00 80 07/26/16 14:45 98.8 85 32 159/74 98 07/26/16 14:00 84 07/26/16 14:00 99.0 85 30 97 07/26/16 13:50 99.7 84 30 174/81 98 07/26/16 13:15 99.9 85 28 174/81 98 07/26/16 12:00 98.3 87 30 166/74 98 07/26/16 12:00 87 07/26/16 10:00 84 07/26/16 08:00 90 07/26/16 08:00 98.7 90 32 168/77 100 I/O 07/26/16 07/26/16 07/26/16 07/27/16 07/27/16 07/27/16 07:00 15:00 23:00 07:00 15:00 23:00 Intake Total 831 ml 1313 ml 325 ml 785 ml Output Total 150 ml 50 ml 125 ml 230 ml Balance 681 ml 1263 ml 200 ml 555 ml Intake Oral 20 ml IV Total 811 ml 1313 ml 325 ml 785 ml Output Urine Total 150 ml 50 ml 125 ml 200 ml Drainage Total 30 ml # Bowel Movements 0 0 0 0 Physical Exam GENERAL: Well developed, well nourished. No acute distress. HEENT: Jugular venous pressure is normal. CHEST: Lungs rhonchi to auscultation bilaterally. Unlabored respiratory effort. CARDIAC: Regular rate and rhythm without S3, S4, or murmur. ABDOMEN: Soft, nontender, no hepatosplenomegaly. Bowel sounds present. EXTREMITIES: No clubbing, cyanosis, or edema. Laboratory Laboratory Tests Test 07/26/16 07/26/16 07/26/16 07/26/16 10:27 11:42 12:25 12:27 Blood Type A POSITIVE A POSITIVE Blood Bank Comment Prothrombin Time 29.1 SEC Prothromb Time International 2.5 RATIO Ratio Activated Partial 51.0 SEC Thromboplast Time Fibrinogen 58 mg/dL Sodium Level 140 MEQ/L Potassium Level 4.9 MEQ/L Chloride Level 104 MEQ/L Carbon Dioxide Level 18.2 MEQ/L Anion Gap 18 MEQ/L Blood Urea Nitrogen 46 MG/DL Creatinine 2.89 MG/DL Estimat Glomerular Filtration 16 ML/MIN Rate Random Glucose 64 MG/DL Lactic Acid Level 10.7 mmol/L Calcium Level 7.5 MG/DL Phosphorus Level 5.8 MG/DL Magnesium Level 2.1 MG/DL Ammonia 34 MCMOL/L Troponin I 2.72 NG/ML Lipase 155 U/L Test 07/26/16 07/26/16 07/26/16 07/26/16 13:40 19:03 19:55 20:30 Blood Bank Comment Lactic Acid Level 14.2 mmol/L Prothrombin Time 18.1 SEC Prothromb Time International 1.6 RATIO Ratio Activated Partial 31.5 SEC Thromboplast Time Fibrinogen 284 mg/dL Urine Eosinophils RARE /HPF Urine Random Creatinine 20.9 MG/DL Urine Random Sodium 99 MEQ/L Test 07/26/16 07/27/16 07/27/16 22:34 05:51 05:52 Lactic Acid Level 10.3 mmol/L 7.0 mmol/L Ammonia 42 MCMOL/L White Blood Count 13.4 TH/MM3 Red Blood Count 2.40 MIL/MM3 Hemoglobin 7.4 GM/DL Hematocrit 23.1 % Mean Corpuscular Volume 96.5 FL Mean Corpuscular Hemoglobin 31.0 PG Mean Corpuscular Hemoglobin 32.2 % Concent Red Cell Distribution Width 14.5 % Platelet Count 55 TH/MM3 Mean Platelet Volume 10.2 FL Neutrophils (%) (Auto) 92.4 % Lymphocytes (%) (Auto) 3.6 % Monocytes (%) (Auto) 3.2 % Eosinophils (%) (Auto) 0.7 % Basophils (%) (Auto) 0.1 % Neutrophils # (Auto) 12.4 TH/MM3 Lymphocytes # (Auto) 0.5 TH/MM3 Monocytes # (Auto) 0.4 TH/MM3 Eosinophils # (Auto) 0.1 TH/MM3 Basophils # (Auto) 0.0 TH/MM3 CBC Comment AUTO DIFF Differential Comment AUTO DIFF CONFIRMED Platelet Estimate LOW Platelet Morphology Comment NORMAL Polychromasia 2.3 % Stomatocytes 1+ Prothrombin Time 22.9 SEC Prothromb Time International 2.0 RATIO Ratio Activated Partial 33.1 SEC Thromboplast Time Fibrinogen 265 mg/dL Sodium Level 141 MEQ/L Potassium Level 4.4 MEQ/L Chloride Level 94 MEQ/L Carbon Dioxide Level 30.0 MEQ/L Anion Gap 17 MEQ/L Blood Urea Nitrogen 52 MG/DL Creatinine 3.78 MG/DL Estimat Glomerular Filtration 12 ML/MIN Rate Random Glucose 80 MG/DL Calcium Level 6.5 MG/DL Protein Corrected Calcium 7.3 MG/DL Phosphorus Level 7.2 MG/DL Magnesium Level 2.1 MG/DL Total Bilirubin 4.0 MG/DL Aspartate Amino Transf 5258 U/L (AST/SGOT) Alanine Aminotransferase 953 U/L (ALT/SGPT) Alkaline Phosphatase 79 U/L Total Creatine Kinase 3300 U/L Creatine Kinase MB 15.9 NG/ML Creatine Kinase MB % 0.5 % Total Protein 5.5 GM/DL Albumin 3.0 GM/DL Random Vancomycin Level 13.9 COMMENT Imaging Last 72 hours Impressions Percutaneous Cholangiogram 07/26/16 0000 Signed Impressions: Service Date/Time: July 16:54 - CONCLUSION: 1. Uncomplicated percutaneous cholecystostomy as above. 2. Will institute daily flushing of the catheter over the next 3 days to ensure patency of the drainage. Lyndon Jacobsen MD Abdomen/Pelvis CT 07/25/161943 Signed Impressions: Service Date/Time: Monday, July 25, 2016 20:28 - CONCLUSION: 1. Findings suspicious for acalculus cholecystitis. Radionuclide imaging is recommended for further evaluation if clinically indicated. Trenton Oneal MD Head CT 07/25/161837 Signed Impressions: Service Date/Time: Monday, July 25, 2016 20:25 - CONCLUSION: 1. No evidence of acute intracranial pathology. No masses are identified. 2. Sinus disease as above Trenton Oneal MD Chest X-Ray 07/25/161837 Signed Impressions: Service Date/Time: Monday, July 25, 2016 19:01 - CONCLUSION: 1. Cardiomegaly. No acute pulmonary disease. Trenton Oneal MD Assessment and Plan Assessment and Plan Systolic heart failure, acute- EF 20-25% - conservative measures - consider renal consult to assist with fluid management - Cr too high for brisa Elevated trop- secondary to CHF Sepsis- Renal insufficiency- Hepatic insufficiency- DNR- prognosis poor with multisystem failure Rach Wilson MD July 27, 2016 07:34
[2016-07-27] MEDS: SODIUM CHLOR 0.9% 1000 ML INJ 1,000 ML IV SCH ×2 (07:45→15:43)
[2016-07-27] MEDS: HYDROCORTISONE SOD SUCCINATE 100 MG VIAL IV PUSH SCH (08:34)
[2016-07-27] MEDS: MUPIROCIN 2% OINT 1 APPLIC/GM SYR EACH NARE SCH (08:34)
[2016-07-27] MEDS: SODIUM CHLORIDE 0.9% FLUSH 10 ML FLUSH IV FLUSH SCH (08:35)
[2016-07-27] MEDS: FLUoxetine HCL 10 MG CAP PO SCH ×2 (08:43→21:00)
[2016-07-27] MEDS: FLUoxetine HCL 20 MG CAP PO SCH ×2 (08:43→21:00)
[2016-07-27] MEDS: ASPIRIN EC 81 MG TABEC PO SCH (08:44)
[2016-07-27] MEDS: OXYBUTYNIN CHLORIDE 5 MG TAB PO SCH ×2 (08:44→21:00)
[2016-07-27] MEDS: VENLAFAXINE HCL XR 75 MG CAP PO SCH (08:44)
[2016-07-27] MEDS: CYANOCOBALAMIN 1,000 MCG TAB PO SCH (08:44)
[2016-07-27] MEDS ORDERED: CALCIUM GLUCONATE INJ 1 GM in SODIUM CHLORIDE 0.9% INJ 100 ML IV ONE (09:00)
[2016-07-27] MEDS: CARVEDILOL 3.125 MG TAB PO SCH ×2 (09:13→21:00)
[2016-07-27] MEDS: MORPHINE SULFATE 4 MG/ML INJ IV PUSH PRN ×3 (09:14→18:05)
[2016-07-27] MEDS: PANTOPRAZOLE SODIUM 40 MG VIAL IV PUSH SCH (10:06)
--- NOTE | 2016-07-27 10:43 | HHI.PR ---
Subjective Subjective Notes Resting in bed in no acute distress Incomprehensible noises Sister in law at bedside Objective Vitals/I&O Vital Signs Date Time Temp Pulse Resp B/P Pulse Ox O2 Delivery O2 Flow Rate FiO2 07/27/16 10:20 98.2 80 22 151/69 97 07/27/16 09:23 Nasal Cannula 2.00 Labs Laboratory Tests Test 07/26/16 07/26/16 07/26/16 07/26/16 11:42 12:25 12:27 13:40 Prothrombin Time 29.1 Prothromb Time International 2.5 Ratio Activated Partial 51.0 Thromboplast Time Fibrinogen 58 Sodium Level 140 Potassium Level 4.9 Chloride Level 104 Carbon Dioxide Level 18.2 Anion Gap 18 Blood Urea Nitrogen 46 Creatinine 2.89 Estimat Glomerular Filtration 16 Rate Random Glucose 64 Lactic Acid Level 10.7 Calcium Level 7.5 Phosphorus Level 5.8 Magnesium Level 2.1 Ammonia 34 Troponin I 2.72 Lipase 155 Blood Bank Comment Blood Type A POSITIVE Test 07/26/16 07/26/16 07/26/16 07/26/16 19:03 19:55 20:30 22:34 Lactic Acid Level 14.2 10.3 Prothrombin Time 18.1 Prothromb Time International 1.6 Ratio Activated Partial 31.5 Thromboplast Time Fibrinogen 284 Urine Eosinophils RARE Urine Random Creatinine 20.9 Urine Random Sodium 99 Test 07/27/16 07/27/16 07/27/16 07/27/16 05:51 05:52 06:54 09:29 Lactic Acid Level 7.0 Ammonia 42 White Blood Count 13.4 Red Blood Count 2.40 Hemoglobin 7.4 Hematocrit 23.1 Mean Corpuscular Volume 96.5 Mean Corpuscular Hemoglobin 31.0 Mean Corpuscular Hemoglobin 32.2 Concent Red Cell Distribution Width 14.5 Platelet Count 55 Mean Platelet Volume 10.2 Neutrophils (%) (Auto) 92.4 Lymphocytes (%) (Auto) 3.6 Monocytes (%) (Auto) 3.2 Eosinophils (%) (Auto) 0.7 Basophils (%) (Auto) 0.1 Neutrophils # (Auto) 12.4 Lymphocytes # (Auto) 0.5 Monocytes # (Auto) 0.4 Eosinophils # (Auto) 0.1 Basophils # (Auto) 0.0 CBC Comment AUTO DIFF Differential Comment AUTO DIFF CONFIRMED Platelet Estimate LOW Platelet Morphology Comment NORMAL Polychromasia 2.3 Stomatocytes 1+ Prothrombin Time 22.9 Prothromb Time International 2.0 Ratio Activated Partial 33.1 Thromboplast Time Fibrinogen 265 Sodium Level 141 Potassium Level 4.4 Chloride Level 94 Carbon Dioxide Level 30.0 Anion Gap 17 Blood Urea Nitrogen 52 Creatinine 3.78 Estimat Glomerular Filtration 12 Rate Random Glucose 80 Calcium Level 6.5 Protein Corrected Calcium 7.3 Phosphorus Level 7.2 Magnesium Level 2.1 2.2 Total Bilirubin 4.0 Aspartate Amino Transf 5258 (AST/SGOT) Alanine Aminotransferase 953 (ALT/SGPT) Alkaline Phosphatase 79 Total Creatine Kinase 3300 Creatine Kinase MB 15.9 Creatine Kinase MB % 0.5 Total Protein 5.5 Albumin 3.0 Random Vancomycin Level 13.9 Blood Type A POSITIVE Antibody Screen NEGATIVE Crossmatch Leukocyte-Reduced Red Blood Cells Blood Bank Comment Date/Time Procedure Status Source Growth 07/25/16 19:44 Urine Culture - Final Complete Urine Catheterized Urine NO GROWTH IN 48 HOURS. 07/25/16 19:10 Aerobic Blood Culture - Preliminary Resulted Blood Peripheral NO GROWTH IN 1 DAY 07/25/16 19:10 Anaerobic Blood Culture - Preliminary Resulted Blood Peripheral NO GROWTH IN 1 DAY Radiology Last 48 hours Impressions Abdomen/Pelvis CT 07/25/161943 Signed Impressions: Service Date/Time: Monday, July 25, 2016 20:28 - CONCLUSION: 1. Findings suspicious for acalculus cholecystitis. Radionuclide imaging is recommended for further evaluation if clinically indicated. Trenton Oneal MD Head CT 07/25/161837 Signed Impressions: Service Date/Time: Monday, July 25, 2016 20:25 - CONCLUSION: 1. No evidence of acute intracranial pathology. No masses are identified. 2. Sinus disease as above Trenton Oneal MD Chest X-Ray 07/25/161837 Signed Impressions: Service Date/Time: Monday, July 25, 2016 19:01 - CONCLUSION: 1. Cardiomegaly. No acute pulmonary disease. Trenton Oneal MD Cardiovascular: Regular Lungs: Clear Abdomen: Other (abdomen soft; tender throughout with palpation; mildly distended ) Extremities: No edema A/P Assessment and Plan 4 year old female with acalculous cholecystitis -IR placed cholecystostomy tube -LORY -Continue Zosyn -Continue to monitor renal function -Palliative Care team following -GS will follow peripherally; please call with questions I certify and attest that I personally examined this patient with Ms Mendez. Will see if needed. Please call with any concerns. ARSALAN SNIDER MD [facility] Analilia Mendez [facility] July 27, 2016 10:43 Arsalan Snider MD Aug 09, 2016 09:46
--- NOTE | 2016-07-27 14:45 | HHI.HCPN ---
Reason for visit a. To assist with evaluation and management of symptoms including:pain b. To assist medical decision maker(s) with: better understanding of current medical conditions; weighing benefits/burdens of medical treatment options; making medical treatment decisions. Subjective/Interval History Pt went to IR and had chlosectomy drain placed. Pt had fever. WBC decreasing. Kidneys worsening with minimal urine output. On my visit pt is grimacing and appears uncomfortable in the abdomen. Family/friend interactions Spoke with pt's , daughter and pt's brother. Review course of hospitalization. Went over pt worsening renal function, liver status, cardiac status, sepsis. Spoke to them I feel given her debility, and current critical issues her overall prognosis is poor. Spoke to the family and ask if they feel pt at this stage would be amenable to hospice. Family nod and acknoweldgement pt's current clinical condition but they ask for some time to think and discuss among themselves. Pt's brother just arrived and they are undecided about dialysis. Regarding dialysis I state that it may buy patient some time, but also reiterate, dialysis patients with multiple issues such as the cardiac, can make it very "tricky" and pt still at risk of still decompensating. I did say however it may buy her some time. They are still unsure but would like time to think about it. They understand that palliative care is not available over the weekend. They will let nurse/ med team know about their decision. Advance Directives Advance Directive Specifics Documented care wishes: DNR completed. Objective Vital Signs Date Time Temp Pulse Resp B/P Pulse Ox O2 Delivery O2 Flow Rate FiO2 07/27/16 14:00 83 07/27/16 12:00 80 07/27/16 12:00 Nasal Cannula 4.00 07/27/16 12:00 98.5 80 18 150/60 96 07/27/16 10:40 98.6 80 18 162/71 96 07/27/16 10:20 98.2 80 22 151/69 97 07/27/16 10:00 80 07/27/16 09:23 93 Nasal Cannula 2.00 07/27/16 08:00 75 07/27/16 08:00 Nasal Cannula 4.00 07/27/16 08:00 97.7 75 22 153/70 92 07/27/16 06:00 74 07/27/16 04:00 97.9 68 14 140/63 100 07/27/16 04:00 68 07/27/16 02:00 70 07/27/16 00:00 73 07/27/16 00:00 98.1 73 19 131/62 99 07/26/16 22:00 80 07/26/16 21:33 98 Nasal Cannula 3.00 07/26/16 20:00 83 07/26/16 20:00 101.7 83 32 133/55 100 07/26/16 18:00 85 07/26/16 16:00 98.0 80 34 112/75 98 07/26/16 16:00 80 07/26/16 14:45 98.8 85 32 159/74 98 Intake & Output 07/27/16 07/27/16 07:00 19:00 Intake Total 1110 ml 1927 ml Output Total 355 ml 250 ml Balance 755 ml 1677 ml IV Total 1110 ml 1527 ml Packed Cells 400 ml Output Urine Total 325 ml 250 ml Drainage Total 30 ml # Bowel Movements 0 0 Physical Exam CONSTITUTIONAL/GENERAL: This is frail lady, grimacing and appears uncomfortable , confused TUBES/LINES/DRAINS: NC, PIV SKIN: No jaundice, rashes, or lesions. Ecchymoses on upper extremities. No wounds seen anteriorly. HEAD: Atraumatic. Normocephalic. EYES: Pupils equal and round and reactive. Extraocular motions intact. No scleral icterus. No injection or drainage. Fundi not examined. ENT: Hearing grossly normal. Nose without bleeding or purulent drainage. Throat without visible erythema, exudates, masses, or lesions. NECK: Trachea midline. Supple, nontender. CARDIOVASCULAR: Regular rate and rhythm without murmurs, gallops, or rubs. RESPIRATORY/CHEST: Rhochi, coarse breath sound GASTROINTESTINAL: Abdomen soft, tender at epigastric and right upper quadrant. BS present. Drain placed GENITOURINARY: Without palpable bladder distension. Merlos catheter in place. MUSCULOSKELETAL: Extremities without clubbing, cyanosis, or edema. LYMPHATICS: No palpable cervical or supraclavicular adenopathy. NEUROLOGICAL: confused. Moves all extremities. PSYCHIATRIC: confused, appears to be in pain. Diagnostic Tests Laboratory Laboratory Tests Test 07/25/16 07/25/16 07/25/16 07/25/16 18:45 18:50 19:44 21:11 White Blood Count 19.9 TH/MM3 (4.0-11.0) Red Blood Count 3.75 MIL/MM3 (4.00-5.30) Hemoglobin 11.9 GM/DL (11.6-15.3) Hematocrit 36.3 % (35.0-46.0) Mean Corpuscular Volume 96.6 FL (80.0-100.0) Mean Corpuscular Hemoglobin 31.7 PG (27.0-34.0) Mean Corpuscular Hemoglobin 32.8 % Concent (32.0-36.0) Red Cell Distribution Width 14.2 % (11.6-17.2) Platelet Count 126 TH/MM3 (150-450) Mean Platelet Volume 8.4 FL (7.0-11.0) Neutrophils (%) (Auto) 91.8 % (16.0-70.0) Lymphocytes (%) (Auto) 1.2 % (9.0-44.0) Monocytes (%) (Auto) 5.9 % (0.0-8.0) Eosinophils (%) (Auto) 0.1 % (0.0-4.0) Basophils (%) (Auto) 1.0 % (0.0-2.0) Neutrophils # (Auto) 18.3 TH/MM3 (1.8-7.7) Lymphocytes # (Auto) 0.2 TH/MM3 (1.0-4.8) Monocytes # (Auto) 1.2 TH/MM3 (0-0.9) Eosinophils # (Auto) 0.0 TH/MM3 (0-0.4) Basophils # (Auto) 0.2 TH/MM3 (0-0.2) CBC Comment DIFF FINAL Differential Comment Prothrombin Time 31.1 SEC (9.8-11.6) Prothromb Time International 2.7 RATIO Ratio Activated Partial 37.4 SEC Thromboplast Time (24.3-30.1) Sodium Level 133 MEQ/L (136-145) Potassium Level 4.8 MEQ/L (3.5-5.1) Chloride Level 94 MEQ/L (98-107) Carbon Dioxide Level 19.8 MEQ/L (21.0-32.0) Anion Gap 19 MEQ/L (5-15) Blood Urea Nitrogen 42 MG/DL (7-18) Creatinine 2.50 MG/DL (0.50-1.00) Estimat Glomerular Filtration 19 ML/MIN (>89) Rate Random Glucose 108 MG/DL (74-106) Lactic Acid Level 9.6 mmol/L 6.4 mmol/L (0.4-2.0) (0.4-2.0) Calcium Level 8.3 MG/DL (8.5-10.1) Total Bilirubin 2.2 MG/DL (0.2-1.0) Aspartate Amino Transf 04959 U/L (AST/SGOT) (15-37) Alanine Aminotransferase 1932 U/L (ALT/SGPT) (10-53) Alkaline Phosphatase 123 U/L (45-117) Total Creatine Kinase 1644 U/L (26-192) Creatine Kinase MB 16.3 NG/ML (0.5-3.6) Creatine Kinase MB % 1.0 % (0.0-4.0) Troponin I 2.97 NG/ML (0.02-0.05) B-Type Natriuretic Peptide GREATER THAN 5000 PG/ML (0-100) Total Protein 6.1 GM/DL (6.4-8.2) Albumin 3.5 GM/DL (3.4-5.0) Thyroid Stimulating Hormone 0.189 uIU/ML 3rd Gen (0.358-3.740) Blood Gas Puncture Site RT RADIAL Blood Gas Patient Temperature 98.6 Blood Gas HCO3 15 mmol/L (22-26) Blood Gas Base Excess -9.4 mmol/L (-2-2) Blood Gas Oxygen Saturation 77 % (90-100) Arterial Blood pH 7.37 (7.380-7.420) Arterial Blood Partial 27 mmHG (38-42) Pressure CO2 Arterial Blood Partial 52 mmHG Pressure O2 (61-120) Arterial Blood Oxygen Content 12.1 Vol % (12.0-20.0) Arterial Blood 1.7 % (0-4) Carboxyhemoglobin Arterial Blood Methemoglobin 1.2 % (0-2) Blood Gas Hemoglobin 11.2 G/DL (12.0-16.0) Blood Gas Inspired Oxygen 21 % Urine Color KIRILL (YELLW/STRAW) Urine Turbidity SLIGHT (CLEAR) Urine pH 5.5 (5.0-8.5) Urine Specific Reedley 1.020 (1.002-1.035) Urine Protein 300 OR GREATER mg/dL (NEG-TRACE) Urine Glucose (UA) NEG mg/dL (NEG) Urine Ketones TRACE mg/dL (NEG) Urine Occult Blood LARGE (NEG) Urine Nitrite NEG (NEG) Urine Bilirubin MOD (NEG) Urine Leukocyte Esterase NEG (NEG) Urine RBC 0-3 /hpf (0-3) Urine WBC 3-5 /hpf (0-5) Urine Squamous Epithelial 6-8 /hpf (0-5) Cells Urine Amorphous Sediment MOD Urine Bacteria MANY /hpf (NONE) Microscopic Urinalysis Comment CATH-CULTURE IND Test 07/25/16 07/26/16 07/26/16 07/26/16 22:40 04:19 10:27 11:42 Nasal Screen MRSA (PCR) MRSA DETECTED (NOT DETECT) White Blood Count 23.4 TH/MM3 (4.0-11.0) Red Blood Count 3.83 MIL/MM3 (4.00-5.30) Hemoglobin 12.1 GM/DL (11.6-15.3) Hematocrit 37.6 % (35.0-46.0) Mean Corpuscular Volume 98.1 FL (80.0-100.0) Mean Corpuscular Hemoglobin 31.5 PG (27.0-34.0) Mean Corpuscular Hemoglobin 32.1 % Concent (32.0-36.0) Red Cell Distribution Width 14.7 % (11.6-17.2) Platelet Count 87 TH/MM3 (150-450) Mean Platelet Volume 9.2 FL (7.0-11.0) Neutrophils (%) (Auto) 94.2 % (16.0-70.0) Lymphocytes (%) (Auto) 1.5 % (9.0-44.0) Monocytes (%) (Auto) 4.1 % (0.0-8.0) Eosinophils (%) (Auto) 0.0 % (0.0-4.0) Basophils (%) (Auto) 0.2 % (0.0-2.0) Neutrophils # (Auto) 22.0 TH/MM3 (1.8-7.7) Lymphocytes # (Auto) 0.4 TH/MM3 (1.0-4.8) Monocytes # (Auto) 1.0 TH/MM3 (0-0.9) Eosinophils # (Auto) 0.0 TH/MM3 (0-0.4) Basophils # (Auto) 0.1 TH/MM3 (0-0.2) CBC Comment AUTO DIFF Differential Total Cells 100 Counted Neutrophils % (Manual) 90 % (16-70) Band Neutrophils % 5 % (0-6) Lymphocytes % 1 % (9-44) Monocytes % 3 % (0-8) Neutrophils # (Manual) 22.5 TH/MM3 (1.8-7.7) Metamyelocytes 1 % (0-1) Differential Comment FINAL DIFF MANUAL Platelet Estimate LOW (NORMAL) Platelet Morphology Comment NORMAL (NORMAL) Ovalocytes 1+ (NORMAL) Sodium Level 139 MEQ/L 140 MEQ/L (136-145) (136-145) Potassium Level 5.1 MEQ/L 4.9 MEQ/L (3.5-5.1) (3.5-5.1) Chloride Level 101 MEQ/L 104 MEQ/L (98-107) (98-107) Carbon Dioxide Level 14.8 MEQ/L 18.2 MEQ/L (21.0-32.0) (21.0-32.0) Anion Gap 23 MEQ/L (5-15) 18 MEQ/L (5-15) Blood Urea Nitrogen 42 MG/DL (7-18) 46 MG/DL (7-18) Creatinine 2.72 MG/DL 2.89 MG/DL (0.50-1.00) (0.50-1.00) Estimat Glomerular Filtration 18 ML/MIN (>89) 16 ML/MIN (>89) Rate Random Glucose 74 MG/DL 64 MG/DL (74-106) (74-106) Lactic Acid Level 10.3 mmol/L 10.7 mmol/L (0.4-2.0) (0.4-2.0) Calcium Level 7.5 MG/DL 7.5 MG/DL (8.5-10.1) (8.5-10.1) Total Bilirubin 3.1 MG/DL (0.2-1.0) Aspartate Amino Transf 9501 U/L (AST/SGOT) (15-37) Alanine Aminotransferase 1820 U/L (ALT/SGPT) (10-53) Alkaline Phosphatase 120 U/L (45-117) Total Protein 5.5 GM/DL (6.4-8.2) Albumin 3.3 GM/DL (3.4-5.0) Triglycerides Level 125 MG/DL (42-150) Cholesterol Level 76 MG/DL (120-200) LDL Cholesterol 26 MG/DL (0-99) HDL Cholesterol 24.6 MG/DL (40.0-60.0) Cholesterol/HDL Ratio 3.08 RATIO Blood Type A POSITIVE Blood Bank Comment Prothrombin Time 29.1 SEC (9.8-11.6) Prothromb Time International 2.5 RATIO Ratio Activated Partial 51.0 SEC Thromboplast Time (24.3-30.1) Fibrinogen 58 mg/dL (181-393) Phosphorus Level 5.8 MG/DL (2.5-4.9) Magnesium Level 2.1 MG/DL (1.5-2.5) Ammonia 34 MCMOL/L (11-32) Troponin I 2.72 NG/ML (0.02-0.05) Lipase 155 U/L (73-393) Test 07/26/16 07/26/16 07/26/16 07/26/16 12:25 12:27 13:40 19:03 Blood Bank Comment Blood Type A POSITIVE Lactic Acid Level 14.2 mmol/L (0.4-2.0) Test 07/26/16 07/26/16 07/26/16 07/27/16 19:55 20:30 22:34 05:51 Prothrombin Time 18.1 SEC (9.8-11.6) Prothromb Time International 1.6 RATIO Ratio Activated Partial 31.5 SEC Thromboplast Time (24.3-30.1) Fibrinogen 284 mg/dL (181-393) Urine Eosinophils RARE /HPF (NONE SEEN) Urine Random Creatinine 20.9 MG/DL Urine Random Sodium 99 MEQ/L Lactic Acid Level 10.3 mmol/L 7.0 mmol/L (0.4-2.0) (0.4-2.0) Ammonia 42 MCMOL/L (11-32) Test 07/27/16 07/27/16 07/27/16 05:52 06:54 09:29 White Blood Count 13.4 TH/MM3 (4.0-11.0) Red Blood Count 2.40 MIL/MM3 (4.00-5.30) Hemoglobin 7.4 GM/DL (11.6-15.3) Hematocrit 23.1 % (35.0-46.0) Mean Corpuscular Volume 96.5 FL (80.0-100.0) Mean Corpuscular Hemoglobin 31.0 PG (27.0-34.0) Mean Corpuscular Hemoglobin 32.2 % Concent (32.0-36.0) Red Cell Distribution Width 14.5 % (11.6-17.2) Platelet Count 55 TH/MM3 (150-450) Mean Platelet Volume 10.2 FL (7.0-11.0) Neutrophils (%) (Auto) 92.4 % (16.0-70.0) Lymphocytes (%) (Auto) 3.6 % (9.0-44.0) Monocytes (%) (Auto) 3.2 % (0.0-8.0) Eosinophils (%) (Auto) 0.7 % (0.0-4.0) Basophils (%) (Auto) 0.1 % (0.0-2.0) Neutrophils # (Auto) 12.4 TH/MM3 (1.8-7.7) Lymphocytes # (Auto) 0.5 TH/MM3 (1.0-4.8) Monocytes # (Auto) 0.4 TH/MM3 (0-0.9) Eosinophils # (Auto) 0.1 TH/MM3 (0-0.4) Basophils # (Auto) 0.0 TH/MM3 (0-0.2) CBC Comment AUTO DIFF Differential Comment AUTO DIFF CONFIRMED Platelet Estimate LOW (NORMAL) Platelet Morphology Comment NORMAL (NORMAL) Polychromasia 2.3 % (0.0-1.9) Stomatocytes 1+ (NORMAL) Prothrombin Time 22.9 SEC (9.8-11.6) Prothromb Time International 2.0 RATIO Ratio Activated Partial 33.1 SEC Thromboplast Time (24.3-30.1) Fibrinogen 265 mg/dL (227-377) Sodium Level 141 MEQ/L (136-145) Potassium Level 4.4 MEQ/L (3.5-5.1) Chloride Level 94 MEQ/L (98-107) Carbon Dioxide Level 30.0 MEQ/L (21.0-32.0) Anion Gap 17 MEQ/L (5-15) Blood Urea Nitrogen 52 MG/DL (7-18) Creatinine 3.78 MG/DL (0.50-1.00) Estimat Glomerular Filtration 12 ML/MIN (>89) Rate Random Glucose 80 MG/DL (74-106) Calcium Level 6.5 MG/DL (8.5-10.1) Protein Corrected Calcium 7.3 MG/DL (8.5-10.1) Phosphorus Level 7.2 MG/DL (2.5-4.9) Magnesium Level 2.1 MG/DL 2.2 MG/DL (1.5-2.5) (1.5-2.5) Total Bilirubin 4.0 MG/DL (0.2-1.0) Aspartate Amino Transf 5258 U/L (AST/SGOT) (15-37) Alanine Aminotransferase 953 U/L (10-53) (ALT/SGPT) Alkaline Phosphatase 79 U/L (45-117) Total Creatine Kinase 3300 U/L (26-192) Creatine Kinase MB 15.9 NG/ML (0.5-3.6) Creatine Kinase MB % 0.5 % (0.0-4.0) Total Protein 5.5 GM/DL (6.4-8.2) Albumin 3.0 GM/DL (3.4-5.0) Random Vancomycin Level 13.9 COMMENT Blood Type A POSITIVE Antibody Screen NEGATIVE Crossmatch Leukocyte-Reduced Red Blood Cells Blood Bank Comment Result Diagram: 07/27/16 0552 07/27/16 0552 Microbiology Microbiology Date/Time Procedure Status Source Growth 07/25/16 18:45 Aerobic Blood Culture - Preliminary Resulted Blood Peripheral NO GROWTH IN 2 DAYS 07/25/16 18:45 Anaerobic Blood Culture - Preliminary Resulted Blood Peripheral NO GROWTH IN 2 DAYS 07/25/16 19:10 Aerobic Blood Culture - Preliminary Resulted Blood Peripheral NO GROWTH IN 2 DAYS 07/25/16 19:10 Anaerobic Blood Culture - Preliminary Resulted Blood Peripheral NO GROWTH IN 2 DAYS 07/25/16 19:44 Urine Culture - Final Complete Urine Catheterized Urine NO GROWTH IN 48 HOURS. Imaging Last Impressions Percutaneous Cholangiogram 07/26/16 0000 Signed Impressions: Service Date/Time: July 16:54 - CONCLUSION: 1. Uncomplicated percutaneous cholecystostomy as above. 2. Will institute daily flushing of the catheter over the next 3 days to ensure patency of the drainage. Lyndon Jacobsen MD Abdomen/Pelvis CT 07/25/16 194 Signed Impressions: Service Date/Time: Monday, July 25, 2016 20:28 - CONCLUSION: 1. Findings suspicious for acalculus cholecystitis. Radionuclide imaging is recommended for further evaluation if clinically indicated. Trenton Oneal MD Head CT [id number]/25/161837 Signed Impressions: Service Date/Time: Monday, July 25, 2016 20:25 - CONCLUSION: 1. No evidence of acute intracranial pathology. No masses are identified. 2. Sinus disease as above Trenton Oneal MD Chest X-Ray 07/25/161837 Signed Impressions: Service Date/Time: Monday, July 25, 2016 19:01 - CONCLUSION: 1. Cardiomegaly. No acute pulmonary disease. Trenton Oneal MD Assessment and Plan Disease Oriented Problem List: (1) Sepsis (2) Acute renal failure (3) Acute cholecystitis (4) Elevated troponin (5) Cholecystitis Comment: would want IR drain placement if amenable (6) Scleroderma (7) Parkinson disease (8) COPD (chronic obstructive pulmonary disease) (9) CAD (coronary artery disease) (10) MD (myocardial infarction) Comment: may be the cause of elevated troponin. not a candidate for revascularization at the current time. Symptom Scale: Pertinent Non-Medical Issues Psychosocial: Spiritual: Legal: Ethical issues impacting care: Important Contacts Avery Breen [phone] Prognosis 61 year old female with PMH significant for Parkinson's, systemic scleroderma, coronary artery disease (MD, status post stents), high cholesterol, COPD, fibromyalgia, GERD, hypertension, hiatal hernia, sleep apnea. Pt has been very debilitated, now tachypneic, cholecystitis, sepsis, with elevated troponins ( not a cadidate for procedure). Overall prognosis is poor. Code Status: No Code Plan == pain mostly abdominal, chloescystitis. Pt has general debility, hx of falls. May consider small dose of dilaudid 0.25 mg iv q 4 hour prn. == dyspnea- copd, == code: DNR/DNI no resuscitation. == capacity: is confused and does not have capacity to make medical decision. == health care decision maker. Avery Breen spouse per nm statuets == goals: Spoke with pt's , daughter and pt's brother at bedside. Review course of hospitalization. Went over pt worsening renal function, liver status, cardiac status, sepsis. Spoke to them I feel given her debility, and current critical issues her overall prognosis is poor. Spoke to the family and ask if they feel pt at this stage would be amenable to hospice? Family nod and acknoweldgement pt's current clinical condition but they ask for some time to think and discuss among themselves. Pt's brother just arrived and they are undecided about dialysis. Regarding dialysis I state that it may buy patient some time, but also reiterate, in dialysis patients with multiple issues such as the cardiac, can make it very "tricky" and pt is still at risk of decompensating. I did say however it may buy her some time. They are still unsure but would like time to think about it. They understand that palliative care is not available over the weekend. They will let nurse/ med team know about their decision. == Palliative Care will continue to follow as clinical condition evolves. Family understands we will not be available over the weekend. Time Spent Total Floor Time (mins): 40 Face to Face Time (mins): 30 Attestation To help prompt me to consider important information that might be impacting today's encounter and assessment, information from prior notes written by myself or my colleagues may have been "brought forward" into today's note. My signature on this note, however, is an attestation that I personally performed the exam, history, and/or decision-making noted today, and, unless otherwise indicated, the interactions with patient, family, and staff as well as the review of records all occurred today. I also attest that the listed assessment and stated plan reflect my best clinical judgment today based on the combination of historical information, prior notes, and today's exam/ interactions. When time spent is documented, it refers only to time spent today by the signer, or if indicated, combined time spent today by collaborating physician/nurse practitioner. Perico Kelley MD July 27, 2016 14:45
[2016-07-27 15:41] LABS: HEMATOCRIT 27.9 % (35.0-46.0); MEAN CELL VOLUME 94.2 FL (80.0-100.0); MEAN CORPUSCULAR HEMOGLOBIN 30.5 PG (27.0-34.0); MEAN CORPUSCULAR HGB CONC 32.4 % (32.0-36.0); PLATELET COUNT 51 TH/MM3 (150-450); RED BLOOD COUNT 2.96 MIL/MM3 (4.00-5.30); RED CELL DISTRIBUTION WIDTH 15.4 % (11.6-17.2); WHITE BLOOD COUNT 17.8 TH/MM3 (4.0-11.0)
[2016-07-27 15:44] LABS: REVIEW FLAG FINAL
[2016-07-27 16:07] LABS: APTT (PATIENT) 35.1 SEC (24.3-30.1); INTERNATIONAL NORMALIZED RATIO 2.4 RATIO; PROTHROMBIN TIME - PATIENT 27.4 SEC (9.8-11.6)
[2016-07-27 16:20] LABS: BICARBONATE 33.4 MEQ/L (21.0-32.0); POTASSIUM 4.4 MEQ/L (3.5-5.1)
[2016-07-27 16:42] LABS: CALCIUM-PROTEIN CORRECTED 7.4 MG/DL (8.5-10.1)
[2016-07-27] MEDS ORDERED: CALCIUM CHLORIDE INJ 1 GM in SODIUM CHLORIDE 0.9% INJ 100 ML IV ONE (16:45)
--- NOTE | 2016-07-27 18:38 | MB ---
cc: BEVERLY VITALE MD DATE OF CONSULTATION 07/27/16 REASON FOR CONSULTATION Elevated BUN and creatinine for evaluation. HISTORY OF PRESENT ILLNESS This is a 61-year-old female with past medical history of Parkinson's disease, hypertension, hyperlipidemia and scleroderma, fibromyalgia, chronic obstructive pulmonary disease, ischemic heart disease, peripheral vascular disease who was brought to the hospital because of fever and lethargy. I was called to see the patient because of elevated BUN and creatinine. The patient has creatinine of 2.5 on admission which has gradually been getting worse and now is 4.1. The patient has fever off and on. She presented with 103.4 and she is diagnosed with acute cholecystitis and she has been getting antibiotics and getting IV fluid. Currently, she is on Zosyn and her urine output is low. In the last 8 hours she has passed 250 mL. Lactic acid has been high. The patient was seen by palliative care. The patient is quite lethargic. She is not able to give history. Most of the history was taken from the patient's chart and some from the patient's family who is present at the bedside. PAST MEDICAL HISTORY 1. Hypertension, 2. Hyperlipidemia, 3. Scleroderma, 4. Fibromyalgia, 5. Parkinson's disease, 6. Chronic obstructive pulmonary disease, 7. Peripheral vascular disease, 8. Ischemic heart disease. PAST SURGICAL HISTORY 1. Appendicectomy 2. C-spine surgery. 3. Cardiac catheterization with stent. 4. History of angiogram of the lower extremity and stent placement, 5. Tonsillectomy, 6. Septoplasty REVIEW OF SYSTEMS Cannot be taken since the patient is quite lethargic. She just opened her eyes on verbal command, but she is not responding to any verbal commands. SOCIAL HISTORY The patient is . She has history of smoking one half-pack per day. There is no history of heavy alcoholism. FAMILY HISTORY Noncontributory. ALLERGIES ZOMAX MEDICATIONS 1. Normal saline at 125 an hour 2. Prozac 40 mg b.i.d. and 10 mg b.i.d. 3. Aspirin 81 mg once a day. 4. Vitamin B12 1000 mcg once a day. 5. Effexor 150 mg once a day. 6. Hydrocortisone 50 mg IV daily. 7. Synthroid 25 mcg daily. 8. Requip 4 mg q.h.s. 9. Lyrica 50 mg q.h.s. 10. DuoNeb nebulizer. 11. Calcium chloride - she got one dose 12. Zosyn. She is on 2.25 grams IV q. 8-hour. 13. Metoprolol 5 mg IV q. 6-hour. 14. Protonix 40 mg q. 24-hour. 15. Morphine as needed PHYSICAL EXAMINATION GENERAL: On examination, the patient is quite lethargic. She just opened her eyes, nonverbal and not responding to any verbal commands. VITAL SIGNS: Blood pressure is 132/106, temperature 97.8, oxygen saturation is 97% on 4 liters nasal cannula. HEENT: Pupils equally reacting to light. Nonicteric sclerae, conjunctivae pale. NECK: Supple. JVD is not elevated. LUNGS: The patient has bilateral decreased air entry with scattered wheezing. HEART: S1, S2 regular rhythm. ABDOMEN: Distended, soft, lax. There is epigastric and upper abdominal tenderness. There is no rebound or rigidity. Bowel sounds positive. EXTREMITIES: There is mild edema in the legs. LABORATORY DATA WBC count is 17.8, hemoglobin 9.0, platelet count of 51, neutrophils 92.4%, eosinophils 0.7. Sodium 140. Potassium 4.4, chloride 94, bicarb 33.4, BUN 64, creatinine 4.1. Lactic acid is 4.8, calcium corrected is 7.4, AST is 5258. Total bilirubin is 4.0, ALT is 953. Creatinine kinase is 3300, total protein is 5.4. Albumin is 3.0, INR is 2.4. Urinalysis showing protein of 300 or greater, rare eosinophils. Creatinine 20.9. Previously, the patient had creatinine of 0.8. This was in January 2016 and at that time also she did not have any proteinuria. IMAGING STUDIES The patient had echocardiogram done which shows that her ejection fraction is 20-25% with diffuse hypokinesia. CT scan of the abdomen and pelvis was done without IV contrast and shows that she has findings suspicious of acute acalculous cholecystitis. Multiple stones in the right kidney without hydronephrosis. The largest measuring 6 mm. Chest x-ray was done which showed that she has cardiomegaly, no pulmonary congestion. CT scan of the brain was done without IV contrast and it shows no mass or bleeding. ASSESSMENT/PLAN 1. Acute kidney injury 2. Hypocalcemia. 3. Acalculous cholecystitis. 4. Acute liver failure 5. Possible rhabdomyolysis. 6. Encephalopathy 7. Anemia. 8. Ischemic heart disease and congestive heart failure 9. Peripheral vascular disease The patient has acute kidney injury and differential diagnosis will be either ATN or possibility of acute interstitial nephritis. She has history of scleroderma. I will check the ALPHONSO and ANCA and complement. I agree with continuing the antibiotic and IV fluid. The other differential diagnosis for acute kidney injury could be also related to rhabdomyolysis since her CPK is high. Her urine output is not much. The patient most likely will need dialysis. I discussed with the family about it and if they will agree and there is no improvement, possibly she will need dialysis tomorrow. Avoid any nephrotoxins. Thank you for the consultation and I will follow the patient while she is in the hospital. MD DURAN Sanders/ /5:12 PM /6:18 PM
[2016-07-27] MEDS: PREGABALIN 25 MG CAP PO SCH (21:00)
[2016-07-28] VITALS (14 sets, daily range): BP systolic 115–152; BP diastolic 59–71; PULSE 80–92; RESP 24–44; TEMP 98.4–101.3; O2SAT 88–99
[2016-07-28] MEDS: MORPHINE SULFATE 4 MG/ML INJ IV PUSH PRN ×4 (00:25→23:57)
[2016-07-28] MEDS: PIPERACIL-TAZO 2.25 GM PREMIX 50 ML IV SCH ×4 (00:25→19:44)
[2016-07-28] MEDS: SODIUM CHLOR 0.9% 1000 ML INJ 1,000 ML IV SCH ×2 (00:25→05:01)
[2016-07-28] MEDS: SODIUM CHLORIDE 0.9% FLUSH 10 ML FLUSH IV FLUSH SCH ×3 (00:29→19:44)
[2016-07-28] MEDS: MUPIROCIN 2% OINT 1 APPLIC/GM SYR EACH NARE SCH ×3 (00:29→19:44)
[2016-07-28] MEDS: LEVOTHYROXINE SODIUM 25 MCG TAB PO SCH (00:31)
[2016-07-28] MEDS: CHLORHEXIDINE GLUCONATE 2 % 1 PACK (2 CLOTHS) TOP SCH (00:31)
[2016-07-28] MEDS: METOPROLOL TARTRATE 5 MG/5 ML VIAL IV PUSH SCH ×4 (04:00→22:53)
[2016-07-28] MEDS: RESP: ALBUTEROL 2.5 MG/IPRATROPIUM 0.5 MG NEB (SCH) NEB ×4 (04:40→20:55)
[2016-07-28] MEDS: CARBIDOPA/LEVODOPA 25 MG/100 MG TAB PO SCH ×3 (05:01→22:00)
[2016-07-28] MEDS: SODIUM CHLORIDE 0.9% 10 ML VIAL IRRIGATION SCH (05:02)
--- NOTE | 2016-07-28 05:25 | PD.PROCEDR ---
Procedure Note Procedure A time-out was completed verifying correct patient, procedure, site, positioning , and special equipment if applicable. The patient was placed in a dependent position appropriate for central line placement based on the vein to be cannulated. The patients right neck was prepped and draped in sterile fashion. 1% Lidocaine was used to anesthetize the surrounding skin area. A double-lumen hemodialysis catheter was introduced into the the internal jugular vein using the Seldinger technique and under ultrasound guidance. The catheter was threaded smoothly over the guide wire and appropriate blood return was obtained. Each lumen of the catheter was evacuated of air and flushed with sterile saline. The catheter was then sutured in place to the skin and a sterile dressing applied. Perfusion to the extremity distal to the point of catheter insertion was checked and found to be adequate. Estimated Blood Loss: 1ml The patient tolerated the procedure well and there were no complications. Jarek Tsai MD July 28, 2016 05:25
--- NOTE | 2016-07-28 05:42 | RADRPT ---
EXAM DATE/TIME: 07/28/2016 04:25 [facility] COMPARISON: CHEST SINGLE AP, July 28, 2016, 3:43. INDICATIONS : Right internal jugular central line placement. MEDICAL HISTORY : Cardiovascular disease. Hiatal hernia. Gastroesophageal reflux disease. SURGICAL HISTORY : Appendectomy. ENCOUNTER: Subsequent ACUITY: 3 days PAIN SCORE: 0/10 LOCATION: Right chest FINDINGS: Right vas catheter tip in superior vena cava. Basilar airspace disease similar to earlier examination . Small effusions. No pneumothorax. Previous fusion lower cervical spine. CONCLUSION: 1. Vas-Cath tip in superior vena cava without pneumothorax. Pablito Alonzo MD on July 28, 2016 at 5:40 Board Certified Radiologist. This report was verified electronically.
--- NOTE | 2016-07-28 05:46 | RADRPT ---
EXAM DATE/TIME: 07/28/2016 03:43 [facility] COMPARISON: CHEST SINGLE AP, July 25, 2016, 19:01. INDICATIONS : Shortness of breath, possible pulmonary disease. MEDICAL HISTORY : Cardiovascular disease. Hiatal hernia. Gastroesophageal reflux disease. SURGICAL HISTORY : Appendectomy. ENCOUNTER: Subsequent ACUITY: 2 days PAIN SCORE: Non-responsive. LOCATION: Bilateral chest FINDINGS: A single view of the chest demonstrates basilar airspace disease which has developed since July 25. Qu estionable small effusions. Cardiomegaly. CONCLUSION: 1. There is basilar airspace disease which has developed with July 25. Cardiomegaly. No pneumothorax. Pablito Alonzo MD on July 28, 2016 at 5:43 Board Certified Radiologist. This report was verified electronically.
[2016-07-28 06:52] LABS: AUTOMATED NEUTROPHIL # 14.2 TH/MM3 (1.8-7.7); BASOPHIL # 0.1 TH/MM3 (0-0.2); BASOPHIL % 0.3 % (0.0-2.0); HEMATOCRIT 26.1 % (35.0-46.0); LYMPH % 3.5 % (9.0-44.0); LYMPHOCYTE # 0.6 TH/MM3 (1.0-4.8); MEAN CELL VOLUME 95.2 FL (80.0-100.0); MEAN CORPUSCULAR HEMOGLOBIN 30.2 PG (27.0-34.0); MEAN CORPUSCULAR HGB CONC 31.7 % (32.0-36.0); MONO % 5.7 % (0.0-8.0); NEUT % 90.5 % (16.0-70.0); PLATELET COUNT 40 TH/MM3 (150-450); RED BLOOD COUNT 2.74 MIL/MM3 (4.00-5.30); RED CELL DISTRIBUTION WIDTH 15.3 % (11.6-17.2); WHITE BLOOD COUNT 15.7 TH/MM3 (4.0-11.0)
[2016-07-28 07:10] LABS: HEMO FLAGS AUTO DIFF
[2016-07-28 07:14] LABS: APTT (PATIENT) 45.3 SEC (24.3-30.1); INTERNATIONAL NORMALIZED RATIO 3.2 RATIO; PROTHROMBIN TIME - PATIENT 37.1 SEC (9.8-11.6)
[2016-07-28 07:36] LABS: BICARBONATE 27.9 MEQ/L (21.0-32.0); TOTAL BILIRUBIN ADULT 5.7 MG/DL (0.2-1.0)
[2016-07-28 07:49] LABS: CALCIUM-PROTEIN CORRECTED 7.4 MG/DL (8.5-10.1)
[2016-07-28] MEDS ORDERED: DEXTROSE 50% IN WATER 50 ML VIAL(D50) ONE (07:50)
[2016-07-28] MEDS: HYDROCORTISONE SOD SUCCINATE 100 MG VIAL IV PUSH SCH ×3 (08:02→22:54)
[2016-07-28] MEDS: ASPIRIN EC 81 MG TABEC PO SCH (08:03)
[2016-07-28] MEDS: OXYBUTYNIN CHLORIDE 5 MG TAB PO SCH ×2 (08:03→21:00)
[2016-07-28] MEDS: CARVEDILOL 3.125 MG TAB PO SCH ×2 (08:03→21:00)
[2016-07-28] MEDS: VENLAFAXINE HCL XR 75 MG CAP PO SCH (08:03)
[2016-07-28] MEDS: FLUoxetine HCL 10 MG CAP PO SCH ×2 (08:03→21:00)
[2016-07-28] MEDS: CYANOCOBALAMIN 1,000 MCG TAB PO SCH (08:04)
[2016-07-28] MEDS: FLUoxetine HCL 20 MG CAP PO SCH ×2 (08:04→21:00)
--- NOTE | 2016-07-28 08:48 | HHI.CCPN ---
Subjective Remarks/Hospital Course 61-year-old female was brought in by EMS for fever and lethargy. Patient was seen at local urgent care center 3 days ago with diagnosis of UTI. She was given prescription for Cipro. EMS was called today because patient has increasing lethargy and fever. Per patient 's she started hallucinating about 6 days ago. She was becoming progressively more lethargic and hallucinating to the point of patient could not talk much today. Patient has history of CAD, [place], status post stent placement, history of PAD status post stent placement on the lower extremity, COPD, and she is an active smoker. She is also history of Parkinson's disease, hypertension, hyperlipidemia, systemic scleroderma, fibromyalgia. Patient's nursery manager Dr. Wilson. Patient's family physician Dr. Amos. Patient has a signed DNR. 07/26: Patient is unable to speak more than 1 word at a time due to tachypnea. Using accessory muscles. Patient is a full DNR according to at bedside. Remains hypertensive. 07/27: Tmax 101.7. Currently afebrile. Status post percutaneous cholangiogram with cholecystostomy tube placed. -30 cc. Remains hemodynamically stable. A.m. laboratories pending. Minimal urine output. Subjective 07/28: Patient resting in bed. Tmax 11.3. Dialysis catheter placed this a.m. Cholecystostomy tube -45 cm bile. DNR status reaffirmed with at bedside. We will attempt dialysis today. Objective Vital Signs Date Time Temp Pulse Resp B/P Pulse Ox O2 Delivery O2 Flow Rate FiO2 07/28/16 06:00 83 07/28/16 04:00 96 Nasal Cannula 4.00 07/28/16 04:00 101.3 30 135/71 Intake and Output 07/27/16 07/27/16 07/28/16 08:00 16:00 00:00 Intake Total 785 ml 1927 ml Output Total 230 ml 265 ml Balance 555 ml 1662 ml Result Diagram: 07/28/16 0620 07/28/16 0620 Other Results Microbiology Date/Time Procedure Status Source Growth 07/25/16 19:44 Urine Culture - Final Complete Urine Catheterized Urine NO GROWTH IN 48 HOURS. 07/25/16 19:10 Aerobic Blood Culture - Preliminary Resulted Blood Peripheral NO GROWTH IN 2 DAYS 07/25/16 19:10 Anaerobic Blood Culture - Preliminary Resulted Blood Peripheral NO GROWTH IN 2 DAYS Imaging Last Impressions Chest X-Ray 07/28/16 0600 Signed Impressions: Service Date/Time: Thursday, July 28, 2016 03:43 - CONCLUSION: 1. There is basilar airspace disease which has developed with July 25. Cardiomegaly. No pneumothorax. Pablito Alonzo MD Percutaneous Cholangiogram 07/26/16 0000 Signed Impressions: Service Date/Time: July 16:54 - CONCLUSION: 1. Uncomplicated percutaneous cholecystostomy as above. 2. Will institute daily flushing of the catheter over the next 3 days to ensure patency of the drainage. Lyndon Jacobsen MD Abdomen/Pelvis CT 07/25/16 1944 Signed Impressions: Service Date/Time: Monday, July 25, 2016 20:28 - CONCLUSION: 1. Findings suspicious for acalculus cholecystitis. Radionuclide imaging is recommended for further evaluation if clinically indicated. Trenton Oneal MD Head CT 07/25/16 1838 Signed Impressions: Service Date/Time: Monday, July 25, 2016 20:25 - CONCLUSION: 1. No evidence of acute intracranial pathology. No masses are identified. 2. Sinus disease as above Trenton Oneal MD Objective Remarks GENERAL: 61-year-old female, critically ill currently resting in bed in mild respiratory distress SKIN: Warm and moist. No rash HEAD: Prior bruising to right forehead. Normocephalic. EYES: Pupils equal and round about 3 mm bilaterally and reactive. No scleral icterus. No injection or drainage. ENT: No nasal bleeding or discharge. Mucous membranes pink and moist. NECK: Trachea midline. No JVD. CARDIOVASCULAR: Tachycardic, RR. S1, S2 no S4. Question S3. Without murmur RESPIRATORY: Positive accessory muscle use. Coarse crackles appreciated bilaterally. GASTROINTESTINAL: Abdomen soft tender palpation epigastric/right upper quadrant. Cholecystostomy tube currently patent -45 cc dark green bile. Hypoactive bowel sounds are appreciated MUSCULOSKELETAL: Extremities trace lower extremity pitting edema. No obvious deformities. NEUROLOGICAL: Awake and alert. No obvious cranial nerve deficits. Follows commands. Moves all 4 extremities spontaneously. A/P Assessment and Plan Neuro/Psych: History of CVA Depression Parkinson's disease - times [address] Simons Fibromyalgia Acute toxic metabolic encephalopathy CT head 07/25 revealed right frontal sinus disease/ethmoid air cell disease. No acute intracranial CVA or bleed identified. Patient is currently on Sinemet 25/100 one tablet 3 times a day for Parkinson's disease. Continue Patient is on Requip 4 mg by mouth daily. Continue Patient is on Lyrica 225 mg a night. Decreased to 50 mg at night Prozac 50 mg twice daily and Effexor XR 150 mg daily for depression. Continue Morphine 2-4 mg every 3 hours when necessary for pain management written by me with John Paul for breakthrough per overnight manager exchange Patient is on Provigil 100 mg by mouth daily She is on Ambien 10 mg at night for insomnia. CV: Non-STEMI - elevated troponin 2.87 Hypertension Dyslipidemia Coronary disease status post single stent Peripheral arterial disease status post 2 left/ 1 right lower stent placement Lactic acidosis Acute systolic heart failure Cardiology/Dr. Wilson consulted Status post 3 L normal saline overnight. On 07/25 IV fluids switch to D5 normal saline 125 cc an hour On Lopressor 5 IV every 6 hours for non-STEMI. Noted written for Coreg 3.125 ideal versus spitting out medications. On Lopressor 50 mill grams by mouth twice a day at home. Also on clonidine 0.1 mg by mouth twice a day at home. Continue Plavix 75 mg daily and aspirin 81 mg by mouth daily with history of stent/non-STEMI Serial lactates until cleared currently 7.0 07/26 echocardiogram revealed EF 20-25%. Moderate to severe AR. Mild MR and TR. PPP 50 mmHg Repeat troponin pending this a.m. hOlding spironolactone 25 mg by mouth twice a day/home medication Holding simvastatin 20 mill grams by mouth daily light of elevated liver function tests Resp: COPD Sleep apnea does not use CPAP Nasal cannula to maintain saturations greater than or equal to 92%. Currently on 4 L Incentive spirometry while awake Chest x-ray 07/25 revealed no acute cardio pulmonary findings Bronchodilator therapy every 6 hours and as needed GI: Elevated transaminases/shock liver Acalculous cholecystitis Hiatal hernia Gastroesophageal reflux disease Irritable bowel syndrome Hyperammonia Status post cholecystostomy 2 by IR/[facility] 07/26 Dr. Joao Alva has been consulted for general surgery CT abdomen/pelvis revealed right pleural effusion, pericholecystic fluid on the gallbladder without stone. Right-sided nephrolithiasis Patient is on Prilosec for by mouth daily for dyspepsia. Currently in IV Protonix Holding Linzess 145 mg by mouth daily Lactulose 30 cc twice a day. Recheck ammonia level in a.m. : Merlos has been placed for accurate I's and O's in a critically ill patient Endo/rheum: Hypothyroidism Chronic steroid use Systemic scleroderma TSH 0.87. Decrease Levoxyl 25 g by mouth daily. On 50 by mouth daily at home Sliding scale insulin to maintain euglycemia Prednisone 5 mg daily converted hydrocortisone 50 mg IV TID Renal: Acute kidney injury Urinary incontinence Right nephrolithiasis without hydronephrosis No hydronephrosis and CT abdomen/pelvis Check urine electrolytes and eosinophils Monitor urine output Accurate I's and O's On Ditropan 5 mg by mouth twice a day at home. Heme: DIC Leukocytosis Normocytic anemia Thrombocytopenia INR 3.4 after 3 units FFP. Fibrinogen 284 after 2 bags cryo- Transfuse FFP and cryoprecipitate prior to cholecystectomy to placement Source control yesterday. Will transfuse 1 unit PRBC today, 2 FFP and 1 pack platelets today ID: Recent urinary tract infection Day #4 Zosyn/vancomycin Pertinent cultures Blood cultures 2 07/25 no growth FEN: Hypocalcemia 1 g calcium chloride IV 1 now. Recheck in a.m. Replace electrolytes as clinically indicated MSK: PT/OT evaluate and treat Access - Utilize peripheral IV. Central line if indicated Right IJ Vas-Cath placed 07/[address] Tsai Prophylaxis - GI - Protonix - DVT - SCD/holding pharmacological prophylaxis with elevated INR/PTT Critical Care: The total critical care time was 35 minutes. Time to perform other separately billable procedures was not included in the critical care time. Status with at bedside. Patient is a full DNR. Patient wouldn't want hemodialysis. We'll attempt optimal medical management. Patient is critically ill with multiple organ failure. Appreciate palliative care assistance for goals of care. We will continue to be aggressive in the interim. Giancarlo Ruiz MD July 28, 2016 08:48
[2016-07-28] MEDS: DEXT 5%-NACL 0.9% 1000 ML INJ 1,000 ML IV SCH ×2 (09:43→16:22)
[2016-07-28 09:44] LABS: BANDS 16 % (0-6); POLYS (SEG NEUTROPHILS) 73 % (16-70); WBC DIFF SAMPLE 100
[2016-07-28 09:45] LABS: PLATELET ESTIMATE SMEAR LOW (NORMAL); PLATELET MORPHOLOGY NORMAL (NORMAL); SCAN/DIFF FINAL DIFF MANUAL
[2016-07-28 09:46] LABS: STOMATOCYTES 1+ (NORMAL)
[2016-07-28] MEDS ORDERED: SODIUM CHLOR 0.9% 1000 ML INJ 1,000 ML IV PRN ×3 (09:50)
[2016-07-28] MEDS ORDERED: ACETAMINOPHEN 325 MG TAB PO PRN (10:00)
[2016-07-28] MEDS ORDERED: MANNITOL 12.5 GM/50 ML VIAL IV PRN (10:00)
[2016-07-28] MEDS ORDERED: diphenhydrAMINE HCL 25 MG CAP PO PRN (10:00)
[2016-07-28] MEDS ORDERED: cloNIDine HCL 0.1 MG TAB PO PRN (10:00)
[2016-07-28] MEDS ORDERED: ALBUMIN HUMAN 25% 25 GM/100 ML BAGP IV PRN (10:00)
[2016-07-28] MEDS ORDERED: SODIUM CHLORIDE 0.9% FLUSH 10 ML FLUSH IV FLUSH PRN (10:00)
[2016-07-28] MEDS ORDERED: NITROGLYCERIN 0.4 MG SL 25 TABS/BTL SL PRN (10:00)
[2016-07-28] MEDS ORDERED: CALCIUM CHLORIDE INJ 1 GM in SODIUM CHLORIDE 0.9% INJ 100 ML IV ONE (10:00)
[2016-07-28] MEDS ORDERED: ONDANSETRON HCL 4 MG/2 ML VIAL IV PRN (10:00)
[2016-07-28] MEDS ORDERED: HEPARIN SODIUM - IV 10,000 UNITS/10 ML VIAL IVF PRN (10:00)
[2016-07-28] MEDS: LACTULOSE SYRUP 20 GM/30 ML CUP PO SCH ×2 (10:00→21:00)
[2016-07-28] MEDS ORDERED: GELATIN 12 MM/7 MM FOAM TOP PRN (10:00)
[2016-07-28 10:15] LABS: HEMATOCRIT 25.3 % (35.0-46.0); MEAN CELL VOLUME 94.3 FL (80.0-100.0); MEAN CORPUSCULAR HEMOGLOBIN 29.8 PG (27.0-34.0); MEAN CORPUSCULAR HGB CONC 31.6 % (32.0-36.0); PLATELET COUNT 45 TH/MM3 (150-450); RED BLOOD COUNT 2.68 MIL/MM3 (4.00-5.30); RED CELL DISTRIBUTION WIDTH 15.2 % (11.6-17.2); WHITE BLOOD COUNT 16.4 TH/MM3 (4.0-11.0)
[2016-07-28 10:22] LABS: REVIEW FLAG FINAL
--- NOTE | 2016-07-28 10:54 | HHI.NPPN ---
Subjective History of Present Illness 61-year-old female with past medical history of Parkinson's disease, hypertension, hyperlipidemia and scleroderma, fibromyalgia, chronic obstructive pulmonary disease, ischemic heart disease, peripheral vascular disease who was brought to the hospital because of fever and lethargy. I was called to see the patient because of elevated BUN and creatinine. The patient has creatinine of 2.5 on admission which has gradually been getting worse. Additional Remarks Patient is awake, non verbal and not following any verbal commands, not in distress. Review of Systems General General Remarks Awake and confused. Objective Data Data 07/27/16 07/28/16 19:00 07:00 Intake Total 1927 ml 1837 ml Output Total 265 ml 305 ml Balance 1662 ml 1532 ml IV Total 1527 ml 1837 ml Packed Cells 400 ml Output Urine Total 250 ml 275 ml Drainage Total 15 ml 30 ml # Bowel Movements 0 Vital Signs Date Time Temp Pulse Resp B/P Pulse Ox O2 Delivery O2 Flow Rate FiO2 07/28/16 10:00 90 07/28/16 08:58 96 Nasal Cannula 4.00 07/28/16 08:00 80 07/28/16 08:00 98 Nasal Cannula 4.00 07/28/16 08:00 98.4 80 35 115/59 98 07/28/16 06:00 83 07/28/16 04:00 96 Nasal Cannula 4.00 07/28/16 04:00 101.3 83 30 135/71 96 07/28/16 04:00 83 07/28/16 02:00 83 07/28/16 00:00 99.5 85 27 152/67 98 07/28/16 00:00 98 Nasal Cannula 4.00 07/28/16 00:00 85 07/27/16 22:00 85 07/27/16 20:00 95 Nasal Cannula 4.00 07/27/16 20:00 99.0 86 28 138/65 95 07/27/16 20:00 86 07/27/16 19:53 96 Nasal Cannula 4.00 07/27/16 16:00 81 07/27/16 16:00 Nasal Cannula 4.00 07/27/16 16:00 97.8 81 18 132/106 97 07/27/16 14:00 83 07/27/16 12:00 80 07/27/16 12:00 Nasal Cannula 4.00 07/27/16 12:00 98.5 80 18 150/60 96 -: 07/28/16 0942 07/28/16 0620 Physical Exam General Appearance: Anxious Appearance Remarks awake and confused. Throat Throat Exam: Oral Mucosa [place] & Moist Pulmonary Resp Exam: Crackles, Rhonchi, Decreased Bases, Diminished Breath Sounds Cardiology CV Exam: Regular, Normal Sinus Rhythm Gastrointestinal/Abdomen GI Exam: Soft, Non-Tender, Bowel Sounds Present, Distended Extremeties Extremities Exam: Trace Edema Neurologic Neuro Exam: Awake Assessment/Plan Assessment Summary: [place]/Acute Renal Failure Problem List: (1) Rhabdomyolysis (2) COPD (chronic obstructive pulmonary disease) (3) CAD (coronary artery disease) (4) Encephalopathy (5) Elevated LFTs (6) Acute cholecystitis (7) Sepsis (8) Acute renal failure Plan Patient has been non oliguric. Creatinine continue yo increase. Acute kidney injury is multifactorial, including, possible ATN, Acute interstitial nephritis, or Rhabdo. Continue antibiotics, Vanco with HD. HD today and again in AM. D/W the family ay bed side. HD will be in next 1-2 hrs. Problem Qualifiers (1) Rhabdomyolysis: Qualified Code: M62.82 - Non-traumatic rhabdomyolysis (2) Sepsis: Qualified Code: A41.9 - Sepsis, due to unspecified organism (3) Acute renal failure: Qualified Code: N17.9 - Acute renal failure, unspecified acute renal failure type Nae Armando MD July 28, 2016 10:54
[2016-07-28] MEDS ORDERED: VANCOMYCIN INJ 1,000 MG in SODIUM CHLOR 0.9% 250 ML INJ 250 ML IV SCH (11:00)
[2016-07-28] MEDS: PANTOPRAZOLE SODIUM 40 MG VIAL IV PUSH SCH (11:12)
[2016-07-28] MEDS: GENTAMICIN SULFATE (DIALYSIS USE ONLY) 20 MG/2 ML VIAL IV PRN (15:14)
[2016-07-28] MEDS: HEPARIN SODIUM - IV 10,000 UNITS/10 ML VIAL PRN (15:15)
[2016-07-28] MEDS ORDERED: hydrALAZINE HCL 20 MG/ML VIAL IV PUSH PRN (16:00)
[2016-07-28] MEDS ORDERED: NITROGLYCERIN 2% OINT 1 GM PACKET TOPICAL PRN (16:00)
[2016-07-28 19:28] LABS: HEMATOCRIT 28.9 % (35.0-46.0); MEAN CELL VOLUME 93.6 FL (80.0-100.0); PLATELET COUNT 39 TH/MM3 (150-450); RED BLOOD COUNT 3.09 MIL/MM3 (4.00-5.30); RED CELL DISTRIBUTION WIDTH 17.3 % (11.6-17.2); WHITE BLOOD COUNT 20.2 TH/MM3 (4.0-11.0)
[2016-07-28 19:30] LABS: REVIEW FLAG FINAL
[2016-07-28] MEDS: PREGABALIN 25 MG CAP PO SCH (21:00)
[2016-07-29] VITALS (11 sets, daily range): BP systolic 122–134; BP diastolic 57–71; PULSE 75–92; RESP 12–28; TEMP 98.7–101.5; O2SAT 91–100
[2016-07-29] MEDS: RESP: ALBUTEROL 2.5 MG/IPRATROPIUM 0.5 MG NEB (SCH) NEB ×3 (03:34→15:23)
[2016-07-29] MEDS: CHLORHEXIDINE GLUCONATE 2 % 1 PACK (2 CLOTHS) TOP SCH (04:00)
[2016-07-29 04:38] LABS: AUTOMATED NEUTROPHIL # 18.8 TH/MM3 (1.8-7.7); BASOPHIL # 0.1 TH/MM3 (0-0.2); BASOPHIL % 0.3 % (0.0-2.0); HEMATOCRIT 29.5 % (35.0-46.0); LYMPH % 1.3 % (9.0-44.0); LYMPHOCYTE # 0.3 TH/MM3 (1.0-4.8); MEAN CELL VOLUME 94.3 FL (80.0-100.0); MEAN CORPUSCULAR HEMOGLOBIN 30.2 PG (27.0-34.0); MEAN CORPUSCULAR HGB CONC 32.1 % (32.0-36.0); NEUT % 94.4 % (16.0-70.0); PLATELET COUNT 35 TH/MM3 (150-450); RED BLOOD COUNT 3.13 MIL/MM3 (4.00-5.30); RED CELL DISTRIBUTION WIDTH 17.1 % (11.6-17.2); WHITE BLOOD COUNT 19.9 TH/MM3 (4.0-11.0)
[2016-07-29 04:42] LABS: HEMO FLAGS AUTO DIFF
[2016-07-29 04:51] LABS: BICARBONATE 24.9 MEQ/L (21.0-32.0); MAGNESIUM 2.2 MG/DL (1.5-2.5); POTASSIUM 4.8 MEQ/L (3.5-5.1)
[2016-07-29] MEDS: DEXT 5%-NACL 0.9% 1000 ML INJ 1,000 ML IV SCH ×3 (05:00→15:08)
[2016-07-29] MEDS: METOPROLOL TARTRATE 5 MG/5 ML VIAL IV PUSH SCH ×3 (05:01→15:06)
[2016-07-29] MEDS: PIPERACIL-TAZO 2.25 GM PREMIX 50 ML IV SCH ×2 (05:01→11:41)
[2016-07-29 05:02] LABS: APTT (PATIENT) 40.6 SEC (24.3-30.1); PROTHROMBIN TIME - PATIENT 35.4 SEC (9.8-11.6)
[2016-07-29] MEDS: HYDROCORTISONE SOD SUCCINATE 100 MG VIAL IV PUSH SCH ×2 (05:02→14:11)
[2016-07-29] MEDS: MORPHINE SULFATE 4 MG/ML INJ IV PUSH PRN ×2 (05:03→14:11)
[2016-07-29] MEDS: CARBIDOPA/LEVODOPA 25 MG/100 MG TAB PO SCH ×2 (05:04→14:00)
[2016-07-29] MEDS: LEVOTHYROXINE SODIUM 25 MCG TAB PO SCH (05:04)
[2016-07-29 05:09] LABS: TOTAL BILIRUBIN ADULT 7.2 MG/DL (0.2-1.0)
[2016-07-29 05:15] LABS: CALCIUM-PROTEIN CORRECTED 7.2 MG/DL (8.5-10.1)
[2016-07-29 05:17] LABS: BANDS 1 % (0-6); CORRECTED NUCLEATED RBC 1 /100 WBC (0-0); NEUTROPHIL # MANUAL DIFF 18.9 TH/MM3 (1.8-7.7); POLYS (SEG NEUTROPHILS) 94 % (16-70); WBC DIFF SAMPLE 100
[2016-07-29 05:18] LABS: PLATELET ESTIMATE SMEAR LOW (NORMAL); PLATELET MORPHOLOGY NORMAL (NORMAL); SCAN/DIFF FINAL DIFF MANUAL
[2016-07-29] MEDS: SODIUM CHLORIDE 0.9% 10 ML VIAL IRRIGATION SCH (05:52)
[2016-07-29] MEDS: MUPIROCIN 2% OINT 1 APPLIC/GM SYR EACH NARE SCH (08:01)
[2016-07-29] MEDS: SODIUM CHLORIDE 0.9% FLUSH 10 ML FLUSH IV FLUSH SCH (08:01)
[2016-07-29] MEDS: LACTULOSE SYRUP 20 GM/30 ML CUP PO SCH (08:02)
[2016-07-29] MEDS: CARVEDILOL 3.125 MG TAB PO SCH (08:02)
[2016-07-29] MEDS: ASPIRIN EC 81 MG TABEC PO SCH (08:02)
[2016-07-29] MEDS: VENLAFAXINE HCL XR 75 MG CAP PO SCH (08:02)
[2016-07-29] MEDS: OXYBUTYNIN CHLORIDE 5 MG TAB PO SCH (08:02)
[2016-07-29] MEDS: FLUoxetine HCL 10 MG CAP PO SCH (08:02)
[2016-07-29] MEDS: FLUoxetine HCL 20 MG CAP PO SCH (08:03)
[2016-07-29] MEDS: CYANOCOBALAMIN 1,000 MCG TAB PO SCH (08:03)
--- NOTE | 2016-07-29 08:39 | HHI.CCPN ---
Subjective Remarks/Hospital Course 61-year-old female was brought in by EMS for fever and lethargy. Patient was seen at local urgent care center 3 days ago with diagnosis of UTI. She was given prescription for Cipro. EMS was called today because patient has increasing lethargy and fever. Per patient 's she started hallucinating about 6 days ago. She was becoming progressively more lethargic and hallucinating to the point of patient could not talk much today. Patient has history of CAD, [place], status post stent placement, history of PAD status post stent placement on the lower extremity, COPD, and she is an active smoker. She is also history of Parkinson's disease, hypertension, hyperlipidemia, systemic scleroderma, fibromyalgia. Patient's shipping hand Dr. Wilson. Patient's family physician Dr. Amos. Patient has a signed DNR. 07/26: Patient is unable to speak more than 1 word at a time due to tachypnea. Using accessory muscles. Patient is a full DNR according to at bedside. Remains hypertensive. 07/27: Tmax 101.7. Currently afebrile. Status post percutaneous cholangiogram with cholecystostomy tube placed. -30 cc. Remains hemodynamically stable. A.m. laboratories pending. Minimal urine output. 07/28: Patient resting in bed. Tmax 101.3. Dialysis catheter placed this a.m. Cholecystostomy tube -45 cm bile. DNR status reaffirmed with at bedside. We will attempt dialysis today. Subjective 07/29: Tmax 101.5. Appears to be agonal breathing. Plan for hemodialysis currently. Possible hospice afterwards if no improvement per . Objective Vital Signs Date Time Temp Pulse Resp B/P Pulse Ox O2 Delivery O2 Flow Rate FiO2 07/29/16 06:00 85 07/29/16 05:08 24 07/29/16 04:00 99 Nasal Cannula 4.00 07/29/16 04:00 101.5 125/62 Intake and Output 07/28/16 07/28/16 07/29/16 08:00 16:00 00:00 Intake Total 1837 ml 2138 ml 950 ml Output Total 305 ml 1135 ml 50 ml Balance 1532 ml 1003 ml 900 ml Result Diagram: 07/29/16 0416 07/29/16 0416 Other Results Microbiology Date/Time Procedure Status Source Growth 07/25/16 19:44 Urine Culture - Final Complete Urine Catheterized Urine NO GROWTH IN 48 HOURS. 07/25/16 19:10 Aerobic Blood Culture - Preliminary Resulted Blood Peripheral NO GROWTH IN 3 DAYS 07/25/16 19:10 Anaerobic Blood Culture - Preliminary Resulted Blood Peripheral NO GROWTH IN 3 DAYS Imaging Last Impressions Chest X-Ray 07/28/16 0600 Signed Impressions: Service Date/Time: Thursday, July 28, 2016 03:43 - CONCLUSION: 1. There is basilar airspace disease which has developed with July 25. Cardiomegaly. No pneumothorax. Pablito Alonzo MD Percutaneous Cholangiogram 07/26/16 0000 Signed Impressions: Service Date/Time: July 16:54 - CONCLUSION: 1. Uncomplicated percutaneous cholecystostomy as above. 2. Will institute daily flushing of the catheter over the next 3 days to ensure patency of the drainage. Lyndon Jacobsen MD Abdomen/Pelvis CT 07/25/16 1944 Signed Impressions: Service Date/Time: Monday, July 25, 2016 20:28 - CONCLUSION: 1. Findings suspicious for acalculus cholecystitis. Radionuclide imaging is recommended for further evaluation if clinically indicated. Trenton Oneal MD Head CT 07/25/16 1838 Signed Impressions: Service Date/Time: Monday, July 25, 2016 20:25 - CONCLUSION: 1. No evidence of acute intracranial pathology. No masses are identified. 2. Sinus disease as above Trenton Oneal MD Objective Remarks GENERAL: 61-year-old female, critically ill currently resting in bed in mild respiratory distress SKIN: Warm and moist. No rash HEAD: Prior bruising to right forehead. Normocephalic. EYES: Pupils equal and round about 3 mm bilaterally and reactive. No scleral icterus. No injection or drainage. ENT: No nasal bleeding or discharge. Mucous membranes pink and moist. NECK: Trachea midline. No JVD. CARDIOVASCULAR: Tachycardic, RR. S1, S2 no S4. Question S3. Without murmur RESPIRATORY: Positive accessory muscle use. Coarse crackles appreciated bilaterally. GASTROINTESTINAL: Abdomen soft tender palpation epigastric/right upper quadrant. Cholecystostomy tube currently patent - 30 cc dark green bile. Hypoactive bowel sounds are appreciated MUSCULOSKELETAL: Extremities trace lower extremity pitting edema. No obvious deformities. NEUROLOGICAL: Currently minimal response. Agonal breathing. Withdraws to pain. A/P Assessment and Plan Neuro/Psych: History of CVA Depression Parkinson's disease - times [address] Simons Fibromyalgia Acute toxic metabolic encephalopathy CT head 07/25 revealed right frontal sinus disease/ethmoid air cell disease. No acute intracranial CVA or bleed identified. Patient is currently on Sinemet 25/100 one tablet 3 times a day for Parkinson's disease. Continue Patient is on Requip 4 mg by mouth daily. Continue Patient is on Lyrica 225 mg a night. Decreased to 50 mg at night Prozac 50 mg twice daily and Effexor XR 150 mg daily for depression. Continue Morphine 2-4 mg every 3 hours when necessary for pain management written by me with John Paul for breakthrough per overnight child development specialist Patient is on Provigil 100 mg by mouth daily She is on Ambien 10 mg at night for insomnia. CV: Non-STEMI - elevated troponin 2.87 Hypertension Dyslipidemia Coronary disease status post single stent Peripheral arterial disease status post 2 left/ 1 right lower stent placement Lactic acidosis Acute systolic heart failure Cardiology/Dr. Wilson consulted Status post 3 L normal saline on 07/25 IV fluids switch to D5 normal saline 125 cc an hour secondary to hypoglycemia On Lopressor 5 IV every 6 hours for non-STEMI. Noted written for Coreg 3.125 ideal versus spitting out medications. On Lopressor 50 mill grams by mouth twice a day at home. Also on clonidine 0.1 mg by mouth twice a day at home. Continue Plavix 75 mg daily and aspirin 81 mg by mouth daily with history of stent/non-STEMI Serial lactates until cleared currently elevated 8.4 07/26 echocardiogram revealed EF 20-25%. Moderate to severe AR. Mild MR and TR. PPP 50 mmHg Repeat troponin pending this a.m. hOlding spironolactone 25 mg by mouth twice a day/home medication Holding simvastatin 20 mill grams by mouth daily light of elevated liver function tests Resp: COPD Sleep apnea does not use CPAP Nasal cannula to maintain saturations greater than or equal to 92%. Currently on 2 L Incentive spirometry while awake Chest x-ray 07/27 revealed no acute cardio pulmonary findings Bronchodilator therapy every 6 hours and as needed GI: Elevated transaminases/shock liver Acalculous cholecystitis Hiatal hernia Gastroesophageal reflux disease Irritable bowel syndrome Hyperammonia Status post cholecystostomy 2 by [facility] 07/26 Dr. Joao Alva has been consulted for general surgery CT abdomen/pelvis revealed right pleural effusion, pericholecystic fluid on the gallbladder without stone. Right-sided nephrolithiasis Patient is on Prilosec for by mouth daily for dyspepsia. Currently in IV Protonix Holding Linzess 145 mg by mouth daily Lactulose 30 cc twice a day. Recheck ammonia level in a.m. Family refusing NG tube and tube feeding per patient request when awake and alert : Merlos has been placed for accurate I's and O's in a critically ill patient Endo/rheum: Hypothyroidism Chronic steroid use Systemic scleroderma TSH 0.87. Decrease Levoxyl 25 g by mouth daily. On 50 by mouth daily at home Sliding scale insulin to maintain euglycemia Prednisone 5 mg daily converted hydrocortisone 50 mg IV TID Renal: Acute kidney injury Urinary incontinence Right nephrolithiasis without hydronephrosis No hydronephrosis and CT abdomen/pelvis Check urine electrolytes and eosinophils Monitor urine output Accurate I's and O's On Ditropan 5 mg by mouth twice a day at home. Heme: DIC Leukocytosis Normocytic anemia Thrombocytopenia Transfused 2 units FFP and cryoprecipitate prior to cholecystectomy to placement Source control yesterday. Patient was transfused 1 unit PRBC today, 2 FFP and 1 pack platelets 07/28 This continues to decrease ID: Recent urinary tract infection Day #5 Zosyn/vancomycin Pertinent cultures Blood cultures 2 07/25 no growth FEN: Hypocalcemia Replace electrolytes as clinically indicated MSK: PT/OT evaluate and treat Access - Utilize peripheral IV. Central line if indicated Right IJ Vas-Cath placed 07/[address] Tsai Prophylaxis - GI - Protonix - DVT - SCD/holding pharmacological prophylaxis with elevated INR/PTT Critical Care: The total critical care time was 35 minutes. Time to perform other separately billable procedures was not included in the critical care time. Status with at bedside. Patient is a full DNR. Possible transfer to hospice after hemodialysis if no neurological improvement clinically Giancarlo Ruiz MD July 29, 2016 08:39
[2016-07-29] MEDS: HEPARIN SODIUM - IV 10,000 UNITS/10 ML VIAL PRN (09:28)
[2016-07-29] MEDS: GENTAMICIN SULFATE (DIALYSIS USE ONLY) 20 MG/2 ML VIAL IV PRN (09:28)
[2016-07-29] MEDS: PANTOPRAZOLE SODIUM 40 MG VIAL IV PUSH SCH (11:40)
--- NOTE | 2016-07-29 13:18 | HHI.NPPN ---
Subjective History of Present Illness 61-year-old female with past medical history of Parkinson's disease, hypertension, hyperlipidemia and scleroderma, fibromyalgia, chronic obstructive pulmonary disease, ischemic heart disease, peripheral vascular disease who was brought to the hospital because of fever and lethargy. I was called to see the patient because of elevated BUN and creatinine. The patient has creatinine of 2.5 on admission which has gradually been getting worse. Additional Remarks Patient is more lethargic and non verbal. Review of Systems General General Remarks Awake and confused. Objective Data Data 07/28/16 07/29/16 19:00 07:00 Intake Total 2138 ml 1801 ml Output Total 1135 ml 110 ml Balance 1003 ml 1691 ml IV Total 985 ml 1801 ml Packed Cells 250 ml FFP 648 ml Platelets 255 ml Output Urine Total 125 ml 100 ml Drainage Total 10 ml 10 ml Hemodialysis 1000 ml Vital Signs Date Time Temp Pulse Resp B/P Pulse Ox O2 Delivery O2 Flow Rate FiO2 07/29/16 12:00 75 12 122/57 99 07/29/16 12:00 99 Nasal Cannula 4.00 07/29/16 12:00 75 07/29/16 10:10 96 Nasal Cannula 4.00 07/29/16 10:00 92 07/29/16 08:00 85 07/29/16 08:00 101.3 85 23 123/58 100 07/29/16 08:00 100 Nasal Cannula 4.00 07/29/16 06:00 85 07/29/16 05:08 24 07/29/16 04:00 84 07/29/16 04:00 99 Nasal Cannula 4.00 07/29/16 04:00 101.5 84 28 125/62 99 07/29/16 02:00 85 07/29/16 00:00 87 07/29/16 00:00 92 Nasal Cannula 4.00 07/29/16 00:00 100.5 87 28 134/62 92 07/28/16 22:00 89 07/28/16 20:56 99 Nasal Cannula 3.00 07/28/16 20:00 99.5 88 24 147/67 99 07/28/16 20:00 88 07/28/16 20:00 99 Nasal Cannula 3.00 07/28/16 18:00 87 07/28/16 16:00 99.3 92 44 140/70 88 07/28/16 16:00 92 07/28/16 16:00 88 Nasal Cannula 4.00 07/28/16 14:00 87 -: 07/29/16 0416 07/29/16 0416 Physical Exam General Appearance: Malnourished Appearance Remarks Unresponsive. Throat Throat Exam: Oral Mucosa [place] & Moist Pulmonary Resp Exam: Crackles, Rhonchi, Decreased Bases, Diminished Breath Sounds Cardiology CV Exam: Regular, Normal Sinus Rhythm Gastrointestinal/Abdomen GI Exam: Soft, Non-Tender, Bowel Sounds Present, Distended Extremeties Extremities Exam: Trace Edema Neurologic Neuro Exam: Obtunded, Unresponsive Assessment/Plan Assessment Summary: [place]/Acute Renal Failure Problem List: (1) Rhabdomyolysis (2) COPD (chronic obstructive pulmonary disease) (3) CAD (coronary artery disease) (4) Encephalopathy (5) Elevated LFTs (6) Acute cholecystitis (7) Sepsis (8) Acute renal failure Plan Patient has HD done again. Now the family decided to go for Hospice, and no HD. Discuss with the Brother and . I will sign off from Nephrology. Problem Qualifiers (1) Rhabdomyolysis: Qualified Code: M62.82 - Non-traumatic rhabdomyolysis (2) Sepsis: Qualified Code: A41.9 - Sepsis, due to unspecified organism (3) Acute renal failure: Qualified Code: N17.9 - Acute renal failure, unspecified acute renal failure type Nae Armando MD July 29, 2016 13:18
--- NOTE | 2016-07-29 15:19 | HHI.DS ---
Discharge Summary Admission Date July 25, 2016 at 20:33 Discharge Date: July 29, 2016 Admitting Diagnosis sepsis. Acute kidney injury. Elevated LFTs. Elevated troponin. R (1) Cholecystitis ICD Code: K81.9 Diagnosis: Principal (2) Respiratory failure ICD Code: J96.90 Diagnosis: Principal (3) Acute renal failure ICD Code: N17.9 Diagnosis: Principal (4) Encephalopathy ICD Code: G93.40 Diagnosis: Principal (5) Rhabdomyolysis ICD Code: M62.82 Diagnosis: Principal (6) Elevated LFTs ICD Code: R94.5 Diagnosis: Principal (7) ID (myocardial infarction) ICD Code: I21.3 Diagnosis: Principal Procedures Hemodialysis after placement of right IJ hemodialysis catheter 07/28 Brief History 61-year-old female was brought in by EMS for fever and lethargy. Patient was seen at local urgent care center 3 days ago with diagnosis of UTI. She was given prescription for Cipro. EMS was called today because patient has increasing lethargy and fever. Per patient 's she started hallucinating about 6 days ago. She was becoming progressively more lethargic and hallucinating to the point of patient could not talk much today. Patient has history of CAD, ID, status post stent placement, history of PAD status post stent placement on the lower extremity, COPD, and she is an active smoker. She is also history of Parkinson's disease, hypertension, hyperlipidemia, systemic scleroderma, fibromyalgia. 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 Patient's family physician Dr. Amos. Patient has a signed DNR. CBC/BMP: 07/29/16 0416 07/29/16 0416 Significant Findings Laboratory Tests Test 07/26/16 07/26/16 07/26/16 07/26/16 19:03 19:55 20:30 22:34 Lactic Acid Level 14.2 mmol/L 10.3 mmol/L (0.4-2.0) (0.4-2.0) Prothrombin Time 18.1 SEC (9.8-11.6) Activated Partial 31.5 SEC Thromboplast Time (24.3-30.1) Urine Eosinophils RARE /HPF (NONE SEEN) Test 07/27/16 07/27/16 07/27/16 07/28/16 05:51 05:52 15:10 06:20 Lactic Acid Level 7.0 mmol/L 4.8 mmol/L 6.4 mmol/L (0.4-2.0) (0.4-2.0) (0.4-2.0) Ammonia 42 MCMOL/L 46 MCMOL/L (11-32) (11-32) White Blood Count 13.4 TH/MM3 17.8 TH/MM3 15.7 TH/MM3 (4.0-11.0) (4.0-11.0) (4.0-11.0) Red Blood Count 2.40 MIL/MM3 2.96 MIL/MM3 2.74 MIL/MM3 (4.00-5.30) (4.00-5.30) (4.00-5.30) Hemoglobin 7.4 GM/DL 9.0 GM/DL 8.3 GM/DL (11.6-15.3) (11.6-15.3) (11.6-15.3) Hematocrit 23.1 % 27.9 % 26.1 % (35.0-46.0) (35.0-46.0) (35.0-46.0) Platelet Count 55 TH/MM3 51 TH/MM3 40 TH/MM3 (150-450) (150-450) (150-450) Neutrophils (%) (Auto) 92.4 % 90.5 % (16.0-70.0) (16.0-70.0) Lymphocytes (%) (Auto) 3.6 % 3.5 % (9.0-44.0) (9.0-44.0) Neutrophils # (Auto) 12.4 TH/MM3 14.2 TH/MM3 (1.8-7.7) (1.8-7.7) Lymphocytes # (Auto) 0.5 TH/MM3 0.6 TH/MM3 (1.0-4.8) (1.0-4.8) Platelet Estimate LOW (NORMAL) LOW (NORMAL) Polychromasia 2.3 % (0.0-1.9) 2.0 % (0.0-1.9) Stomatocytes 1+ (NORMAL) 1+ (NORMAL) Prothrombin Time 22.9 SEC 27.4 SEC 37.1 SEC (9.8-11.6) (9.8-11.6) (9.8-11.6) Activated Partial 33.1 SEC 35.1 SEC 45.3 SEC Thromboplast Time (24.3-30.1) (24.3-30.1) (24.3-30.1) Chloride Level 94 MEQ/L 94 MEQ/L (98-107) (98-107) Anion Gap 17 MEQ/L (5-15) Blood Urea Nitrogen 52 MG/DL (7-18) 64 MG/DL (7-18) 75 MG/DL (7-18) Creatinine 3.78 MG/DL 4.16 MG/DL 5.00 MG/DL (0.50-1.00) (0.50-1.00) (0.50-1.00) Estimat Glomerular Filtration 12 ML/MIN (>89) 11 ML/MIN (>89) 9 ML/MIN (>89) Rate Calcium Level 6.5 MG/DL 6.6 MG/DL 6.6 MG/DL (8.5-10.1) (8.5-10.1) (8.5-10.1) Protein Corrected Calcium 7.3 MG/DL 7.4 MG/DL 7.4 MG/DL (8.5-10.1) (8.5-10.1) (8.5-10.1) Phosphorus Level 7.2 MG/DL 7.0 MG/DL (2.5-4.9) (2.5-4.9) Total Bilirubin 4.0 MG/DL 5.7 MG/DL (0.2-1.0) (0.2-1.0) Aspartate Amino Transf 5258 U/L 4179 U/L (AST/SGOT) (15-37) (15-37) Alanine Aminotransferase 953 U/L (10-53) 826 U/L (10-53) (ALT/SGPT) Total Creatine Kinase 3300 U/L (26-192) Creatine Kinase MB 15.9 NG/ML (0.5-3.6) Total Protein 5.5 GM/DL 5.4 GM/DL 5.4 GM/DL (6.4-8.2) (6.4-8.2) (6.4-8.2) Albumin 3.0 GM/DL 2.9 GM/DL (3.4-5.0) (3.4-5.0) Fibrinogen 208 mg/dL 164 mg/dL (227-377) (181-393) Carbon Dioxide Level 33.4 MEQ/L (21.0-32.0) Mean Corpuscular Hemoglobin 31.7 % Concent (32.0-36.0) Neutrophils % (Manual) 73 % (16-70) Band Neutrophils % 16 % (0-6) Lymphocytes % 5 % (9-44) Neutrophils # (Manual) 14.0 TH/MM3 (1.8-7.7) Random Glucose 41 MG/DL (74-106) Complement C3 27 MG/DL (90-180) Complement C4 LESS THAN 2 MG/DL (10-40) Test 07/28/16 07/28/16 07/29/16 09:42 19:16 04:16 White Blood Count 16.4 TH/MM3 20.2 TH/MM3 19.9 TH/MM3 (4.0-11.0) (4.0-11.0) (4.0-11.0) Red Blood Count 2.68 MIL/MM3 3.09 MIL/MM3 3.13 MIL/MM3 (4.00-5.30) (4.00-5.30) (4.00-5.30) Hemoglobin 8.0 GM/DL 9.3 GM/DL 9.5 GM/DL (11.6-15.3) (11.6-15.3) (11.6-15.3) Hematocrit 25.3 % 28.9 % 29.5 % (35.0-46.0) (35.0-46.0) (35.0-46.0) Mean Corpuscular Hemoglobin 31.6 % Concent (32.0-36.0) Platelet Count 45 TH/MM3 39 TH/MM3 35 TH/MM3 (150-450) (150-450) (150-450) Mean Platelet Volume 11.7 FL (7.0-11.0) Lactic Acid Level 4.9 mmol/L 8.2 mmol/L (0.4-2.0) (0.4-2.0) Red Cell Distribution Width 17.3 % (11.6-17.2) Neutrophils (%) (Auto) 94.4 % (16.0-70.0) Lymphocytes (%) (Auto) 1.3 % (9.0-44.0) Neutrophils # (Auto) 18.8 TH/MM3 (1.8-7.7) Lymphocytes # (Auto) 0.3 TH/MM3 (1.0-4.8) Neutrophils % (Manual) 94 % (16-70) Lymphocytes % 3 % (9-44) Neutrophils # (Manual) 18.9 TH/MM3 (1.8-7.7) Nucleated Red Blood Cells 1 /100 WBC (0-0) Platelet Estimate LOW (NORMAL) Prothrombin Time 35.4 SEC (9.8-11.6) Activated Partial 40.6 SEC Thromboplast Time (24.3-30.1) Fibrinogen 101 mg/dL (181-393) Anion Gap 17 MEQ/L (5-15) Blood Urea Nitrogen 77 MG/DL (7-18) Creatinine 4.88 MG/DL (0.50-1.00) Estimat Glomerular Filtration 9 ML/MIN (>89) Rate Random Glucose 167 MG/DL (74-106) Calcium Level 6.4 MG/DL (8.5-10.1) Protein Corrected Calcium 7.2 MG/DL (8.5-10.1) Phosphorus Level 6.5 MG/DL (2.5-4.9) Total Bilirubin 7.2 MG/DL (0.2-1.0) Aspartate Amino Transf 2209 U/L (AST/SGOT) (15-37) Alanine Aminotransferase 808 U/L (10-53) (ALT/SGPT) Ammonia 63 MCMOL/L (11-32) Total Protein 5.4 GM/DL (6.4-8.2) Albumin 2.9 GM/DL (3.4-5.0) Imaging Last Impressions Chest X-Ray 07/28/16 0600 Signed Impressions: Service Date/Time: Thursday, July 28, 2016 03:43 - CONCLUSION: 1. There is basilar airspace disease which has developed with July 25. Cardiomegaly. No pneumothorax. Pablito Alonzo MD Percutaneous Cholangiogram 07/26/16 0000 Signed Impressions: Service Date/Time: July 16:54 - CONCLUSION: 1. Uncomplicated percutaneous cholecystostomy as above. 2. Will institute daily flushing of the catheter over the next 3 days to ensure patency of the drainage. Lyndon Jacobsen MD Abdomen/Pelvis CT 07/25/161943 Signed Impressions: Service Date/Time: Monday, July 25, 2016 20:28 - CONCLUSION: 1. Findings suspicious for acalculus cholecystitis. Radionuclide imaging is recommended for further evaluation if clinically indicated. Trenton Oneal MD Head CT 07/25/16 1838 Signed Impressions: Service Date/Time: Monday, July 25, 2016 20:25 - CONCLUSION: 1. No evidence of acute intracranial pathology. No masses are identified. 2. Sinus disease as above Trenton Oneal MD PE at Discharge GENERAL: 58-year-old female, critically ill SKIN: Warm and dry. HEAD: Atraumatic. Normocephalic. EYES: Pupils equal and round. No scleral icterus. No injection or drainage. ENT: No nasal bleeding or discharge. Mucous membranes pink and moist. NECK: Trachea midline. No JVD. Right IJ clean dry and intact CARDIOVASCULAR: Regular rate and rhythm. RESPIRATORY: + accessory muscle use. Agonal breathing. Coarse crackles bilaterally GASTROINTESTINAL: Abdomen soft, non-tender, nondistended. Right cholecystostomy tube with bilious drainage MUSCULOSKELETAL: Extremities with 1+ edema NEUROLOGICAL: Currently minimally arousable. Withdraws to pain bilateral upper and lower extremities. Transfer Summary Neuro/Psych: History of CVA Depression Parkinson's disease - times [address] Simons Fibromyalgia Acute toxic metabolic encephalopathy CT head 07/25 revealed right frontal sinus disease/ethmoid air cell disease. No acute intracranial CVA or bleed identified. Patient is currently on Sinemet 25/100 one tablet 3 times a day for Parkinson's disease. Continue Patient is on Requip 4 mg by mouth daily. Continue Patient is on Lyrica 225 mg a night. Decreased to 50 mg at night Prozac 50 mg twice daily and Effexor XR 150 mg daily for depression. 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 CV: Non-STEMI - elevated troponin 2.87 Hypertension Dyslipidemia Coronary disease status post single stent Peripheral arterial disease status post 2 left/ 1 right lower stent placement Lactic acidosis Acute systolic heart failure Cardiology/Dr. Wilson consulted Status post 3 L normal saline on 07/25 IV fluids switch to D5 normal saline 125 cc an hour secondary to hypoglycemia On Lopressor 5 IV every 6 hours for non-STEMI. Noted written for Coreg 3.125 ideal versus spitting out medications. On Lopressor 50 mill grams by mouth twice a day at home. Also on clonidine 0.1 mg by mouth twice a day at home. Continue Plavix 75 mg daily and aspirin 81 mg by mouth daily with history of stent/non-STEMI Serial lactates until cleared currently elevated 8.4 07/26 echocardiogram revealed EF 20-25%. Moderate to severe AR. Mild MR and TR. PPP 50 mmHg Repeat troponin pending this a.m. hOlding spironolactone 25 mg by mouth twice a day/home medication Holding simvastatin 20 mill grams by mouth daily light of elevated liver function tests Resp: COPD Sleep apnea does not use CPAP Nasal cannula to maintain saturations greater than or equal to 92%. Currently on 2 L Incentive spirometry while awake Chest x-ray 07/27 revealed no acute cardio pulmonary findings Bronchodilator therapy every 6 hours and as needed GI: Elevated transaminases/shock liver Acalculous cholecystitis Hiatal hernia Gastroesophageal reflux disease Irritable bowel syndrome Hyperammonia Status post cholecystostomy 2 by IR/[place] 07/26 Dr. Joao Alva has been consulted for general surgery CT abdomen/pelvis revealed right pleural effusion, pericholecystic fluid on the gallbladder without stone. Right-sided nephrolithiasis Patient is on Prilosec for by mouth daily for dyspepsia. Currently in IV Protonix Holding Linzess 145 mg by mouth daily Lactulose 30 cc twice a day. Recheck ammonia level in a.m. Family refusing NG tube and tube feeding per patient request when awake and alert : Merlos has been placed for accurate I's and O's in a critically ill patient Endo/rheum: Hypothyroidism Chronic steroid use Systemic scleroderma TSH 0.87. Decrease Levoxyl 25 g by mouth daily. On 50 by mouth daily at home Sliding scale insulin to maintain euglycemia Prednisone 5 mg daily converted hydrocortisone 50 mg IV TID Renal: Acute kidney injury Urinary incontinence Right nephrolithiasis without hydronephrosis No hydronephrosis and CT abdomen/pelvis Check urine electrolytes and eosinophils Monitor urine output Accurate I's and O's On Ditropan 5 mg by mouth twice a day at home. Heme: DIC Leukocytosis Normocytic anemia Thrombocytopenia Transfused 2 units FFP and cryoprecipitate prior to cholecystectomy to placement Source control yesterday. Patient was transfused 1 unit PRBC today, 2 FFP and 1 pack platelets 07/28 This continues to decrease ID: Recent urinary tract infection Day #5 Zosyn/vancomycin Pertinent cultures Blood cultures 2 07/25 no growth FEN: Hypocalcemia Replace electrolytes as clinically indicated MSK: PT/OT evaluate and treat Access - Utilize peripheral IV. Central line if indicated Right IJ Vas-Cath placed 07/[address] Tsai Prophylaxis - GI - Protonix - DVT - SCD/holding pharmacological prophylaxis with elevated INR/PTT Critical Care: The total critical care time was 35 minutes. Time to perform other separately billable procedures was not included in the critical care time. Status with at bedside. Patient is a full DNR. Possible transfer to hospice after hemodialysis if no neurological improvement clinically Giancarlo Ruiz MD Hospital Course 61-year-old female was brought in by EMS for fever and lethargy. Patient was seen at local urgent care center 3 days ago with diagnosis of UTI. She was given prescription for Cipro. EMS was called today because patient has increasing lethargy and fever. Per patient 's she started hallucinating about 6 days ago. She was becoming progressively more lethargic and hallucinating to the point of patient could not talk much today. Patient has history of CAD, ID, status post stent placement, history of PAD status post stent placement on the lower extremity, COPD, and she is an active smoker. She is also history of Parkinson's disease, hypertension, hyperlipidemia, systemic scleroderma, fibromyalgia. 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 Patient's family physician Dr. Amos. Patient has a signed DNR. 07/26: Patient is unable to speak more than 1 word at a time due to tachypnea. Using accessory muscles. Patient is a full DNR according to at bedside. Remains hypertensive. 07/27: Tmax 101.7. Currently afebrile. Status post percutaneous cholangiogram with cholecystostomy tube placed. -30 cc. Remains hemodynamically stable. A.m. laboratories pending. Minimal urine output. 07/28: Patient resting in bed. Tmax 101.3. Dialysis catheter placed this a.m. Cholecystostomy tube -45 cm bile. DNR status reaffirmed with at bedside. We will attempt dialysis today. 07/29: Tmax 101.5. Appears to be agonal breathing. Plan for hemodialysis currently. Possible hospice afterwards if no improvement per . Plan for hospice per family request. Pt Condition on Discharge: Deteriorating Discharge Disposition: Hospice/Med Facility Discharge Instructions DIET: Follow Instructions for: Nothing By Mouth Activities you can perform: Continue Bedrest Giancarlo Ruiz MD July 29, 2016 15:19
[2016-08-02 03:52] LABS: MYELOPEROXIDASE LESS THAN 1.0 AI (<1.0); PROTEINASE-3 LESS THAN 1.0 AI (<1.0)
== END 2016-07-29 18:15 | disposition hospice, inpatient (51) | DRG 871 ==
LOC: PHED 18:35 → PHEDA 20:33 → HIME 22:35
PROVIDERS: ADMIT Internal Medicine Critical Care Medicine; ATTEND Internal Medicine Critical Care Medicine
PROC: 0F9430Z Drainage of Gallbladder with Drainage Device, Percutaneous Approach (ICD-10-PCS; 2016-07-26)
PROC: BF121ZZ Fluoroscopy of Gallbladder using Low Osmolar Contrast (ICD-10-PCS; 2016-07-26)
PROC: 05HM33Z Insertion of Infusion Device into Right Internal Jugular Vein, Percutaneous Approach (ICD-10-PCS; principal; 2016-07-28)
PROC: B543ZZA Ultrasonography of Right Jugular Veins, Guidance (ICD-10-PCS; 2016-07-28)
PROC: 5A1D60Z (ICD-10-PCS; 2016-07-28)
PROC: 30253L1 (ICD-10-PCS; 2016-07-28)
PROC: 30253N1 (ICD-10-PCS; 2016-07-28)
PROC: 30253R1 (ICD-10-PCS; 2016-07-28)
PROC: [UNRECOGNIZED PROCEDURE] (2016-07-28)
DX: A41.9 Sepsis, unspecified organism (principal); I50.21 Acute systolic (congestive) heart failure; D65 Disseminated intravascular coagulation [defibrination syndrome]; I21.4 Non-ST elevation (NSTEMI) myocardial infarction; J96.90 Respiratory failure, unspecified, unspecified whether with hypoxia or hypercapnia; K72.00 Acute and subacute hepatic failure without coma; G20 Parkinson's disease; M62.82 Rhabdomyolysis; N17.0 Acute kidney failure with tubular necrosis; G92 Toxic encephalopathy; K81.0 Acute cholecystitis; N39.0 Urinary tract infection, site not specified; M34.9 Systemic sclerosis, unspecified; J44.9 Chronic obstructive pulmonary disease, unspecified; I11.0 Hypertensive heart disease with heart failure; I25.10 Atherosclerotic heart disease of native coronary artery without angina pectoris; I25.2 Old myocardial infarction; Z95.5 Presence of coronary angioplasty implant and graft; I73.9 Peripheral vascular disease, unspecified; Z95.820 Peripheral vascular angioplasty status with implants and grafts; F17.210 Nicotine dependence, cigarettes, uncomplicated; E78.5 Hyperlipidemia, unspecified; M79.7 Fibromyalgia; E03.9 Hypothyroidism, unspecified; F32.9 Major depressive disorder, single episode, unspecified; K21.9 Gastro-esophageal reflux disease without esophagitis; K44.9 Diaphragmatic hernia without obstruction or gangrene; G47.30 Sleep apnea, unspecified; Z51.5 Encounter for palliative care; Z66 Do not resuscitate; Z91.81 History of falling; E83.51 Hypocalcemia; D64.9 Anemia, unspecified; G47.00 Insomnia, unspecified; K58.9 Irritable bowel syndrome, unspecified; N20.0 Calculus of kidney; R32 Unspecified urinary incontinence; Z79.02 Long term (current) use of antithrombotics/antiplatelets; Z79.52 Long term (current) use of systemic steroids; Z79.82 Long term (current) use of aspirin; Z86.73 Personal history of transient ischemic attack (TIA), and cerebral infarction without residual deficits
CPT/HCPCS: 36430; 36556; 36600; 47490; 51702; 70450; 71010; 74176; 76937; 80048; 80053; 80061; 80074; 80202; 81001; 82140; 82550; 82552; 82570; 82805; 83605; 83690; 83735; 83880; 84100; 84155; 84300; 84443; 84484; 85007; 85025; 85027; 85384; 85610; 85730; 86021; 86038; 86160; 86850; 86900; 86901; 86920; 86927; 86965; 87040; 87086; 87205; 87641; 90935; 93005; 93306; 94150; 94640; 94664; 96361; 96365; 96367; 96374; 96375; C1729; C1760; C1769; C9113; C9132; J0610; J1170; J1580; J1644; J1720; J1940; J2270; J2543; J3370; J7030; J7042; J7050; J7512; P9016; P9017; P9035; P9047